=== PATIENT | female | born 1980 | race Caucasian/White ===

== ENCOUNTER 2016-11-28 10:44 | Emergency (ER) | payer MEDICARE, OTHER ==
[2016-11-28] MEDS ORDERED: HYDROcodone/ACETAMINOPHEN 1 EACH TABLET PO ONE (12:45)
--- NOTE | 2016-11-28 12:46 | ERNOTE ---
Lower Extremity HPI - Narrative Date of Service: 11/28/16 - General Lower Extremities Pain: knee: right Time Seen by Provider: 11/28/16 12:36 Source: patient, RN notes reviewed, old records, other - [facility] database Exam Limitations: clinical condition - Immun/Allergies/Home Medications Immunizations: IMMUNIZATION HX Immunizations Up to Date Yes History of Influenza Vaccine Yes Hx Pneumococcal Vaccination No Allergies/Adverse Reactions: Allergies Allergy/AdvReac Type Severity Reaction Status Date / Time ketorolac tromethamine Allergy Severe Hives Verified 11/01/16 15:27 [From Toradol] ondansetron HCl [From Zofran] Allergy Severe Hives Verified 11/01/16 15:27 ibuprofen AdvReac Mild Nausea Verified 11/01/16 15:27 Home Medications: HOME MEDICATIONS Lurasidone HCl [Latuda] 80 mg PO DAILY 02/17/15 [Last Taken Unknown] Zolpidem Tartrate [Ambien] 10 mg PO HS 02/17/15 [Last Taken Unknown] Dexlansoprazole [Dexilant] 60 mg PO DAILY 09/04/15 [Last Taken Unknown] Ketoconazole [Nizoral Cream] 1 appl TP BID #30 gm 05/01/16 [Last Taken Unknown] Lamotrigine [Lamictal] 200 mg PO HS 07/27/16 [Last Taken Unknown] Lisdexamfetamine Dimesylate [Vyvanse] 50 mg PO DAILY 07/27/16 [Last Taken Unknown] busPIRone HCL [Buspar] 30 mg PO DAILY 07/27/16 [Last Taken Unknown] clonazePAM [Klonopin] 1 mg PO BID 09/05/16 [Last Taken Unknown] Promethazine HCl 12.5 mg PO QID PRN #14 tablet 10/27/16 [Last Taken Unknown] oxyCODONE HCL/ACETAMINOPHEN [Percocet 5 MG/325 MG] 2 tab PO QID PRN #30 tab 10/02 [Last Taken Unknown] - History of Present Illness Narrative: Carissa is a 36 year old female who presents to the ED for right knee pain. She reports that her knee has been "locking up" for the past 2 days. She reports being unable to fully extend or flex the knee. She denies any injury. She has had similar problems with this in the past and had a knee surgery approximately a year ago. She has not contacted her orhto, Dr. Lucio, about her symptoms. She has been taking Tylenol without relief. She was here with right knee pain last May and June. She reports following up with Dr. Lucio at that time. She states she had a cortisone injection and did physical therapy with good results. She lives in [place] and her PCP is in [place] at [facility]. Her [facility] record is 12 pages long. According to the report she is also in the ED at [facility] frequently. She was prescribed Bloomingdale by a provider there and filled the rx 1 week ago. Method of Injury: Reports: no apparent injury Prior Treament: Reports: recently seen, treated by physician, similar symptoms before Review of Systems - Review of Systems Constitutional: Absent: fever, chills EYE: Present: no symptoms reported ENT: Present: no symptoms reported Respiratory: Present: no symptoms reported Cardiology: Present: no symptoms reported Gastrointestinal/Abdominal: Present: no symptoms reported Genitourinary: Present: no symptoms reported Musculoskeletal: Present: joint pain, joint swelling Skin: Absent: lesions, lumps, change in color Neurological: Absent: weakness, numbness, tingling Endocrine: Present: no symptoms reported Hematologic/Lymphatic: Present: no symptoms reported Psych: Present: no symptoms reported - Patient's Past Medical History Patient History - Medical: Anxiety, Depression, Kidney stone, Obesity, Osteoarthritis Patient History - Cardiac/Respiratory: No pertinent hx Patient History - Cancer: Bladder, Other Patient History - Surgical Procedures: Appendectomy, Cholecystectomy, , Hysterectomy, Tubal Ligation, Other - Family History Mother Family History - Medical: No pertinent hx Family History - Cardiac/Respiratory: No pertinent hx Father Family History - Medical: No pertinent hx Family History - Cardiac/Respiratory: No pertinent hx - Social History Living Situations: spouse Smoking Status: Current every day smoker Have you smoked in the past 12 months: Yes Do you dip or chew tobacco: No Alcohol Use: none Drug Use: none Physical Exam - Physical Exam General Appearance: Present: alert, mild distress, obese Extremity Exam: Present: no edema, decreased range of motion, other - well healed incision to right anterior knee, severe pain with any palpation of knee, no effusion present, sitting in wheelchair with right leg extended, exam limited d/t complaints of severe pain. Absent: joint redness Neurological Exam: Present: alert, oriented, normal mood/affect, no motor/ sensory deficits Skin Exam: Present: normal color, warm/dry ED Progress - Vital Signs Patient's Vital Signs:: I have reviewed the patient's vital signs. Vital Signs: Vital Signs 11/28/16 11:02 Temperature 36.7 C Pulse Rate 106 H Respiratory 14 Rate Blood Pressure 157/89 O2 Sat by Pulse 100 Oximetry - X-Ray X-Ray #1 X-Ray: knee - right Interpretation: Reviewed by me X-ray Comments: Technique: Knee 3 Views RT * Findings: Normal bony mineralization and alignment. No fracture or dislocation. Reidentified osteoarthritis. No lytic or blastic changes. No soft tissue abnormality. IMPRESSION: NO ACUTE OSSEOUS ABNORMALITY Electronically signed by Alonso Marcos M.D.. - Progress/Reassessment Chief Complaint: Lower Extremity Pain/ Injury Progress:: Unchanged Progress Note-Subjective: 2 Bloomingdale given for pain, patient reported nausea after her xray, Phenergan IM ordered - requested more pain medication with this. Xray report reviewed with patient. Informed that based on lack of acute findings, prescribing narcotic pain medications is not appropriate. Report from [facility] database also reviewed with patient. Discussed that she needs to obtain her pain medications from her PCP as she has obtained numerous prescriptions from different providers that she has even filled at several different pharmacies over the past year. Instructed to contact her PCP or her orthopedic surgeon regarding further pain management. Patient then requested to speak to me again when the nurse went in the room to discharge her. I instructed the nurse to discharge the patient, as I had no further instructions for her and was not going to discuss prescribing pain medication any further. The patient then told the nurse that I was a "fucking coward" because I would not speak to her again. As the patient was leaving - without the use of a wheelchair - she informed the nurse that if she saw me " out on the street" that she would "fuck up my world." reimbursement manager contacted by nurse occupational health manager. She recommended contacting law enforcement as the patient had threatened to harm me. [employer] contacted. 2 officers then came to the department and a report was made. Departure Clinical Impression: Drug-seeking behavior Knee pain, right Qualifiers: Chronicity: unspecified Qualified Code(s): M25.561 - Pain in right knee - Departure Disposition: Home Follow Up Needed Condition: Good Instructions: Knee Pain, [id number] Additional Instructions: Contact Dr. Lucio regarding your ongoing knee problems Referrals: Wilmer Lucio MD [Staff Physician] -
[2016-11-28] MEDS ORDERED: HYDROcodone/ACETAMINOPHEN 1 EACH TABLET ONE (12:52)
[2016-11-28] MEDS ORDERED: PROMETHAZINE HCL 50 MG/ML AMPUL IM ONE ×2 (13:26→13:29)
[2016-11-28 17:06] VITALS: BP 157/89
== END 2016-11-28 14:35 | disposition home or self-care (01) ==
LOC: ER 10:44
DX: M25.561 Pain in right knee (principal); Z76.5 Malingerer [conscious simulation]; F17.210 Nicotine dependence, cigarettes, uncomplicated; Z90.710 Acquired absence of both cervix and uterus; Z90.49 Acquired absence of other specified parts of digestive tract; Z85.51 Personal history of malignant neoplasm of bladder

== ENCOUNTER 2017-01-18 14:34 | Emergency (ER) | payer MEDICARE, OTHER ==
[2017-01-18] MEDS ORDERED: FAMOTIDINE 10 MG/ML VIAL IV ONE ×2 (15:02→15:50)
[2017-01-18] MEDS ORDERED: PROMETHAZINE HCL 12.5 MG in DEXTROSE 5 % IN WATER 50 ML IV ONE ×2 (15:02)
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
--- OUTSIDE RECORDS SUMMARY | 2017-01-18 15:05 | XMS REPORT | Summary of Care ---
:1980 Author Organization [facility] Address [address] [place] [id number]- Care Team Providers Name Role Phone Jessy Taylor Primary Care Physician Encounter Date(s): 12/13/16 - 12/13/[address] [id number]- [facility] Discharge Diagnosis: Recurrent abdominal pain Discharge Disposition: Discharged to Home or Self Care Attending Physician: CAS Rucker Admitting Physician: CAS Rucker Vital Signs Most recent to oldest 1 2 3 [Reference Range]: Temperature Temporal Artery 36.9 DegC 37.0 DegC [36.0-38.0 DegC] (12/13/16 9:34 PM) (12/13/16 5:29 PM) Heart Rate Monitored [60-100 103 bpm 110 bpm bpm] *HI* *HI* (12/13/16 9:34 PM) (12/13/16 5:29 PM) Respiratory Rate [12-20 br/min] 20 br/min 18 br/min 18 br/min (12/13/16 9:34 PM) (12/13/16 8:26 PM) (12/13/16 6:48 PM) SpO2 94 % 98 % (12/13/16 9:34 PM) (12/13/16 5:29 PM) Blood Pressure [90-130/60-90 154/89mmHg 150/94mmHg mmHg] *HI* *HI* (12/13/16 9:34 PM) (12/13/16 5:29 PM) Weight Dosing 139.20 kg1 (12/13/16 5:33 PM) Weight Measured 139.2 kg (12/13/16 5:29 PM) 1Result Comment: This result was because the dosing weight was either not entered or it is>30 days old. This result is based off: Weight Measured December 13, 2016 17:29:00 PRESS OPERATOR HELPER by Cheli Varghese RN Problem List Condition Effective Dates Status Health Status Informant ADHD - Attention deficit disorder Active with hyperactivity(Confirmed) Anal fissure(Confirmed) 05/30/15 Active Anxiety(Confirmed) Active Appendectomy(Confirmed) Active patient Back pain(Confirmed) Active Bipolar disorder NOS(Confirmed) Active delivery(Confirmed)1 Active Cholecystectomy(Confirmed) Active patient Depression(Confirmed) Active GERD - Gastro-esophageal reflux Active disease(Confirmed) H/O: 1 miscarriage(Confirmed) Active H/O: head injury(Confirmed) Active History of - attempted Active suicide(Confirmed) IC (interstitial Active cystitis)(Confirmed) Chronic insomnia(Confirmed) Active Morbid obesity(Confirmed) Active Muscle shortened- piriformis on Active left(Confirmed) OCD - Obsessive-compulsive Active disorder(Confirmed) Acute paronychia of Active finger(Confirmed) Post-operative pain(Confirmed) 05/05/15 Active Cyst, ovarian(Confirmed) Active Pelvic inflammatory Active disease(Confirmed) PERSONALITY DISORDERS(Confirmed) Active (Confirmed) 04/18/98 - 01/23/99 Resolved (Confirmed) 05/30/04 - 01/16/05 Resolved (Confirmed) 02/15/03 - 11/22/03 Resolved Seizure disorder(Confirmed) Active Tubal ligation(Confirmed) Active patient Urinary frequency(Confirmed) Active Weakness of back(Confirmed) Active 1x3 Allergies, Adverse Reactions, Alerts Substance Reaction Severity Status ibuprofen GASTRIC ULCER, UNSPECIFIED ACUTE OR CHRONIC, WITHOUT Active MENTION OF HEMORRHAGE OR PERFORATION Alex Montgomery Active Medications Adderall 10 mg oral tablet 1 tab(s), Oral, BID, take 1 every morning and 1 every noon take on empty stomach, # 60 tab(s), 0 Refill(s), Start Date: 01/03/15 15:28:02 PRESS OPERATOR HELPER, Pharmacy: [facility] [id number] Start Date: 01/03/15 Stop Date: 01/10/15 Status: DiscontinuedAdderall 20 mg oral tablet 1 tab(s), Oral, BID, take 1 tab in the morning and 1 tab at noon., # 60 tab(s), 0 Refill(s), Start Date: 03/10/15 9:18:00 CDT, Pharmacy: [facility] [id number] Start Date: 03/10/15 Stop Date: 04/07/15 Status: DiscontinuedAdderall 20 mg oral tablet 1 tab(s), Oral, BID, take 1 tab in the morning and 1 tab at noon., # 60 tab(s), 0 Refill(s), Start Date: 04/07/15 9:32:24 CDT, Pharmacy: [facility] Start Date: 04/07/15 Stop Date: 05/08/15 Status: CompletedAdderall 20 mg oral tablet 1 tab(s), Oral, BID, take 1 tab in the morning and 1 tab at noon., # 60 tab(s), 0 Refill(s), Start Date: 06/06/15 9:28:56 CDT, Pharmacy: [facility] [id number] Start Date: 06/06/15 Stop Date: 08/14/15 Status: CompletedAdderall 20 mg oral tablet 1 tab(s), Oral, BID, take 1 tab in the morning and 1 tab at noon., # 60 tab(s), 0 Refill(s), Start Date: 05/08/15 11:52:49 CDT, Pharmacy: [facility] Start Date: 05/08/15 Stop Date: 06/06/15 Status: CompletedAdderall 20 mg oral tablet 1 tab(s), Oral, BID, take 1 tab qam and 1 tab at noon., # 60 tab(s), 0 Refill(s) , Start Date: 01/10/15 10:07:00 PRESS OPERATOR HELPER, Pharmacy: [facility] [id number] Start Date: 01/10/15 Stop Date: 02/06/15 Status: Discontinuedalbuterol CFC free 90 mcg/inh inhalation aerosol 2 puff(s), Inhale, QID, PRN for wheezing, X 7 days, # 1 EA, 0 Refill(s), Start Date: 12/16/15 10:00:00 PRESS OPERATOR HELPER, Pharmacy: [facility] Start Date: 12/16/15 Stop Date: 12/23/15 Status: CompletedAmbien 5 mg oral tablet 1 tab(s), Oral, HS, PRN for sleep, # 30 tab(s), 1 Refill(s), called to pharmacy (Rx) Start Date: 08/16/14 Stop Date: 09/14/14 Status: DiscontinuedAmbien 5 mg oral tablet 1 tab(s), Oral, HS, PRN for sleep, # 30 tab(s), 1 Refill(s), Start Date: 11:37:30 PRESS OPERATOR HELPER, Pharmacy: [facility] [id number] Start Date: 10/18/14 Stop Date: 11/21/14 Status: DiscontinuedAmbien 5 mg oral tablet 1 tab(s), Oral, HS, PRN for sleep, # 30 tab(s), 3 Refill(s), Start Date: 12:01:43 PRESS OPERATOR HELPER, Pharmacy: [facility] [id number] Start Date: 11/21/14 Stop Date: 12/16/14 Status: DiscontinuedAmbien 5 mg oral tablet 1 tab(s), Oral, HS, PRN for sleep, # 30 tab(s), 1 Refill(s), Start Date: 11:53:37 CDT, called to pharmacy (Rx) Start Date: 09/14/14 Stop Date: 10/18/14 Status: Discontinuedamitriptyline 25 mg oral tablet 1 tab(s), Oral, HS, 0 Refill(s), Start Date: 02/06/15 16:00:00 CDT Start Date: 02/06/15 Stop Date: 05/12/15 Status: Completedamitriptyline 25 mg oral tablet 1 tab(s), Oral, HS, # 30 tab(s), 11 Refill(s), Start Date: 11/03/14 10:16:00 PRESS OPERATOR HELPER , Pharmacy: [facility] [id number] Start Date: 11/03/14 Stop Date: 11/21/14 Status: Completedamitriptyline 50 mg oral tablet 1 tab(s), Oral, HS, # 30 tab(s), 0 Refill(s), Start Date: 11/21/14 11:30:00 PRESS OPERATOR HELPER Start Date: 11/21/14 Stop Date: 02/06/15 Status: Completedamoxicillin 500 mg oral capsule 1 cap(s), Oral, TID, X 10 days, # 30 cap(s), 0 Refill(s), [facility] [place] Start Date: 05/07/14 Stop Date: 05/17/14 Status: CompletedAtivan 1 mg oral tablet 1 tab(s), Oral, BID, # 10 tab(s), 0 Refill(s) Start Date: 08/01/14 Stop Date: 08/16/14 Status: CompletedAtivan 1 mg oral tablet 0.5 - 1 tab, Oral, BID, PRN for anxiety, # 55 tab(s), 0 Refill(s), called to pharmacy (Rx) Start Date: 08/16/14 Stop Date: 09/14/14 Status: DiscontinuedAtivan 1 mg oral tablet 0.5 - 1 tab, Oral, BID, PRN for anxiety, # 45 tab(s), 0 Refill(s), Start Date: 10/18/14 11:37:13 PRESS OPERATOR HELPER, Pharmacy: [facility] [id number] Start Date: 10/18/14 Stop Date: 11/21/14 Status: DiscontinuedAtivan 1 mg oral tablet 0.5 - 1 tab, Oral, BID, PRN for anxiety, # 60 tab(s), 3 Refill(s), Start Date: 11/21/14 12:01:39 PRESS OPERATOR HELPER, Pharmacy: [facility] [id number] Start Date: 11/21/14 Stop Date: 12/16/14 Status: CompletedAtivan 1 mg oral tablet 1 tab(s), Oral, TID, PRN for anxiety, X 2 days, # 6 tab(s), 0 Refill(s) Start Date: 05/18/14 Stop Date: 05/20/14 Status: CompletedAtivan 1 mg oral tablet 0.5 - 1 tab, Oral, BID, PRN for anxiety, # 50 tab(s), 0 Refill(s), Start Date: 09/14/14 11:53:26 CDT, called to pharmacy (Rx) Start Date: 09/14/14 Stop Date: 10/18/14 Status: DiscontinuedAtivan 1 mg oral tablet 0.5 - 1 tab, Oral, BID, PRN for anxiety, # 55 tab(s), 0 Refill(s), called to pharmacy (Rx) Start Date: 07/27/14 Stop Date: 08/16/14 Status: DiscontinuedAtivan 1 mg oral tablet 1 tab(s), Oral, TID, PRN for anxiety Start Date: 07/21/14 Stop Date: 07/27/14 Status: Discontinuedazithromycin 250 mg oral tablet 2 tab(s), Oral, ONETIME, 0 Refill(s) Start Date: 06/13/14 Stop Date: 06/20/14 Status: Discontinuedazithromycin 250 mg oral tablet 1 tab(s), Oral, Daily, from tomorrow for 4 days, 0 Refill(s) Start Date: 06/13/14 Stop Date: 06/20/14 Status: DiscontinuedBactrim DS 800 mg-160 mg oral tablet 1 tab(s), Oral, BID, X 5 days, # 10 tab(s), 0 Refill(s) Start Date: 06/22/14 Stop Date: 06/27/14 Status: CompletedBactrim DS 800 mg-160 mg oral tablet 1 tab(s), Oral, BID, X 10 days, # 20 tab(s), 0 Refill(s), Start Date: 06/01/16 10:13:00 CDT Start Date: 06/01/16 Stop Date: 06/11/16 Status: CompletedBentyl 10 mg oral capsule 1 cap(s), Oral, QID, PRN abdominal pain, # 15 cap(s), 0 Refill(s), Start Date: 10/15/15 17:02:00 PRESS OPERATOR HELPER Start Date: 10/15/15 Stop Date: 01/21/16 Status: CompletedbusPIRone 15 mg oral tablet 1 tab(s), Oral, BID, Start Date: 06/06/16 15:48:00 CDT Start Date: 06/06/16 Stop Date: 09/15/16 Status: CompletedbusPIRone 30 mg oral tablet 1 tab(s), Oral, BID, # 180 tab(s), 0 Refill(s), Start Date: 09/15/16 12:58:00 CDT Start Date: 09/15/16 Status: Orderedcefdinir 300 mg oral capsule 1 cap(s), Oral, q12hr, # 20 cap(s), 0 Refill(s), Start Date: 10/05/16 15:21:00 PRESS OPERATOR HELPER, [facility] [place] Start Date: 10/05/16 Stop Date: 10/23/16 Status: Completedcephalexin 500 mg oral tablet 1 tab(s), Oral, QID, # 28 tab(s), 0 Refill(s) Start Date: 05/13/14 Stop Date: 06/13/14 Status: DiscontinuedCheratussin AC 10 mg-100 mg/5 mL oral syrup 5 mL, Oral, q4hr, PRN for cough, # 120 mL, 0 Refill(s), Start Date: 12/26/14 18: 43:00 PRESS OPERATOR HELPER Start Date: 12/26/14 Stop Date: 01/09/15 Status: Completedcimetidine 300 mg oral tablet 1 tab(s), Oral, TID, # 15 tab(s), 0 Refill(s) Start Date: 06/02/14 Stop Date: 06/20/14 Status: DiscontinuedCipro 500 mg oral tablet 1 tab(s), Oral, q12hr, # 2 tab(s), 0 Refill(s), Start Date: 10/26/14 13:16:00 PRESS OPERATOR HELPER Start Date: 10/26/14 Stop Date: 11/03/14 Status: CompletedCipro 500 mg oral tablet 1 tab(s), Oral, q12hr, # 20 tab(s), 0 Refill(s) Start Date: 09/01/14 Stop Date: 09/27/14 Status: Discontinuedcitalopram 10 mg oral tablet 1 tab(s), Oral, Daily, # 30 tab(s), 1 Refill(s), Pharmacy: [facility] [id number] Start Date: 05/25/14 Stop Date: 06/13/14 Status: Discontinuedcitalopram 10 mg oral tablet 1 tab(s), Oral, Daily, # 30 tab(s), 0 Refill(s) Start Date: 06/13/14 Stop Date: 06/20/14 Status: DiscontinuedClaritin 10 mg oral tablet 1 tab(s), Oral, Daily, Start Date: 10/23/16 8:23:00 PRESS OPERATOR HELPER Start Date: 10/23/16 Stop Date: 11/01/16 Status: CompletedcloNIDine 0.1 mg oral tablet 0.5 tab, Oral, BID, discontinue and call clinic in case of fatigue or dizziness , # 30 tab(s), 0 Refill(s), Start Date: 10/18/14 11:38:00 PRESS OPERATOR HELPER, Pharmacy: [facility] [id number] Start Date: 10/18/14 Stop Date: 11/21/14 Status: CompletedDexilant 60 mg oral delayed release capsule 1 cap(s), Oral, Daily, # 30 cap(s), 0 Refill(s), Start Date: 05/01/15 6:17:00 CDT Start Date: 05/01/15 Status: Ordereddextroamphetamine 5 mg oral tablet 1 tab(s), Oral, BID, take 1 tab in the morning and 1 tab at noon., # 60 tab(s), 0 Refill(s), Start Date: 02/14/15 10:50:00 CDT, Pharmacy: [facility] [id number] Start Date: 02/14/15 Stop Date: 03/10/15 Status: Discontinueddextroamphetamine-amphetamine 20 mg oral tablet 1 tab(s), Oral, BID, # 60 tab(s), 0 Refill(s), Start Date: 02/09/15 9:33:42 CDT , Pharmacy: [facility] [id number] Start Date: 02/09/15 Stop Date: 02/14/15 Status: CompletedDiflucan 150 mg oral tablet 1 tab(s), Oral, Every other day, # 5 tab(s), 0 Refill(s), Start Date: 03/14/16 17:57:30 CDT, Pharmacy: [facility] [id number] Start Date: 03/14/16 Stop Date: 03/26/16 Status: CompletedDiflucan 150 mg oral tablet 1 tab(s), Oral, Every other day, # 5 tab(s), 0 Refill(s), Start Date: 03/13/16 18:45:00 CDT, Pharmacy: [facility] Start Date: 03/13/16 Stop Date: 03/14/16 Status: DiscontinuedDiflucan 150 mg oral tablet 1 tab(s), Oral, ONETIME, # 1 tab(s), 0 Refill(s), Start Date: 12/16/15 9:59:00 PRESS OPERATOR HELPER, Pharmacy: [facility] Start Date: 12/16/15 Stop Date: 01/21/16 Status: CompletedDiflucan 150 mg oral tablet 1 tab(s), Oral, ONETIME, # 1 tab(s), 0 Refill(s) Start Date: 09/01/14 Stop Date: 09/01/14 Status: CompletedDiflucan 150 mg oral tablet 1 tab(s), Oral, ONETIME, # 1 tab(s), 0 Refill(s), Start Date: 05/08/15 8:57:00 CDT Start Date: 05/08/15 Stop Date: 05/12/15 Status: CompletedDiflucan 150 mg oral tablet 1 tab(s), Oral, ONETIME, # 1 tab(s), 0 Refill(s), Start Date: 05/04/15 10:05:00 CDT, Pharmacy: [facility] [id number] Start Date: 05/04/15 Stop Date: 05/09/15 Status: CompletedDilaudid 2 mg oral tablet 1 tab(s), Oral, q8hr interval, PRN for pain, # 3 tab(s), 0 Refill(s), Start Date : 03/04/15 23:12:00 CDT Start Date: 03/04/15 Stop Date: 03/10/15 Status: CompletedDilaudid 4 mg oral tablet 1 tab(s), Oral, q4hr, PRN for pain, # 8 tab(s), 0 Refill(s), Start Date: 19:40:00 CDT Start Date: 02/02/16 Stop Date: 03/26/16 Status: Completeddoxycycline monohydrate 100 mg oral capsule 1 cap(s), Oral, BID, # 28 cap(s), 0 Refill(s) Start Date: 05/22/14 Stop Date: 06/13/14 Status: Discontinueddoxycycline monohydrate 100 mg oral tablet 1 tab(s), Oral, Daily, # 14 tab(s), 0 Refill(s) Start Date: 07/10/14 Stop Date: 07/27/14 Status: Completedferrous sulfate 325 mg, Oral, Daily, 0 Refill(s), Start Date: 08/13/16 17:39:00 CDT Start Date: 08/13/16 Stop Date: 10/04/16 Status: CompletedFlagyl 500 mg oral tablet 1 tab(s), Oral, every 8 hours, # 42 tab(s), 0 Refill(s) Start Date: 07/10/14 Stop Date: 07/27/14 Status: CompletedFlagyl 500 mg oral tablet 1 tab(s), Oral, q8hr interval, # 30 tab(s), 0 Refill(s) Start Date: 05/22/14 Stop Date: 06/13/14 Status: DiscontinuedflavoxATE 100 mg oral tablet 2 tab(s), Oral, TID, # 42 tab(s), 0 Refill(s), Start Date: 10/29/14 18:14:00 PRESS OPERATOR HELPER Start Date: 10/29/14 Stop Date: 11/21/14 Status: CompletedFlexeril 10 mg oral tablet 1 tab(s), Oral, TID, # 15 tab(s), 0 Refill(s), Start Date: 03/19/15 13:18:00 CDT Start Date: 03/19/15 Stop Date: 04/07/15 Status: DiscontinuedFlomax 0.4 mg oral capsule 1 cap(s), Oral, Daily, # 30 cap(s), 0 Refill(s), Start Date: 02/27/15 23:11:00 CDT Start Date: 02/27/15 Stop Date: 04/27/15 Status: CompletedFlonase 50 mcg/inh nasal spray 1 spray(s), Nasal, BID, in each nostril, # 16 gm, 0 Refill(s), Start Date: 12/26 18:44:00 PRESS OPERATOR HELPER, Pharmacy: [facility] [id number] Start Date: 12/26/14 Stop Date: 02/06/15 Status: Completedfluconazole 150 mg oral tablet tab(s), Oral, Daily, 0 Refill(s) Start Date: 06/13/14 Stop Date: 06/13/14 Status: Discontinuedfluticasone 50 mcg/inh nasal spray 2 spray(s), Nasal, Daily, X 14 days, # 1 EA, 0 Refill(s), Start Date: 12/16/15 9 :59:00 PRESS OPERATOR HELPER, Pharmacy: [facility] Start Date: 12/16/15 Stop Date: 12/30/15 Status: Completedgabapentin See Instructions, 100 mg Oral take 2 in am and 2 at noon and 1 at hs, 0 Refill (s) Start Date: 03/15/14 Stop Date: 06/20/14 Status: Discontinuedgabapentin 100 mg oral capsule 2 cap(s), Oral, HS, # 60 cap(s), 0 Refill(s), Pharmacy: [facility] [id number] Start Date: 06/20/14 Stop Date: 08/16/14 Status: Completedgabapentin 100 mg oral capsule 2 cap(s), Oral, HS, 0 Refill(s) Start Date: 06/20/14 Stop Date: 06/20/14 Status: Discontinuedgabapentin 300 mg oral capsule 1 cap(s), Oral, BID, 0 Refill(s) Start Date: 06/20/14 Stop Date: 06/20/14 Status: Discontinuedgabapentin 300 mg oral capsule 1 cap(s), Oral, BID, # 60 cap(s), 0 Refill(s), Pharmacy: [facility] [id number] Start Date: 06/20/14 Stop Date: 08/16/14 Status: CompletedHYDROcodone Oral, q12hr interval, 0 Refill(s), Start Date: 10/20/14 14:03:00 PRESS OPERATOR HELPER Start Date: 10/20/14 Stop Date: 11/21/14 Status: CompletedHYDROcodone-acetaminophen 5 mg-325 mg oral tablet 2 tab(s), Oral, q4hr, PRN for pain, 0 Refill(s), Start Date: 06/23/15 10:20:00 CDT Start Date: 06/23/15 Stop Date: 10/15/15 Status: CompletedHYDROcodone-acetaminophen 5 mg-325 mg oral tablet 1 tab(s), Oral, q6hr, PRN for pain, # 30 tab(s), 0 Refill(s), Start Date: 15:24:00 PRESS OPERATOR HELPER, other reason (Rx) Start Date: 12/07/14 Stop Date: 02/06/15 Status: CompletedHYDROcodone-acetaminophen 5 mg-325 mg oral tablet 2 tab(s), Oral, q6hr, X 3 days, # 15 tab(s), 0 Refill(s), Start Date: 07/29/15 23:32:00 CDT Start Date: 07/29/15 Stop Date: 08/01/15 Status: CompletedHYDROcodone-acetaminophen 5 mg-325 mg oral tablet 2 tab(s), Oral, q6hr, X 3 days, # 8 tab(s), 0 Refill(s), Start Date: 12/04/15 21 :39:00 PRESS OPERATOR HELPER Start Date: 12/04/15 Stop Date: 12/07/15 Status: CompletedHYDROcodone-acetaminophen 5 mg-325 mg oral tablet 1-2 tab(s), Oral, q6hr interval, # 12 tab(s), 0 Refill(s), Start Date: 02/28/15 19:43:00 CDT Start Date: 02/28/15 Stop Date: 03/03/15 Status: CompletedHYDROcodone-acetaminophen 5 mg-325 mg oral tablet 2 tab(s), Oral, q4hr, # 20 tab(s), 0 Refill(s) Start Date: 05/26/14 Stop Date: 05/30/14 Status: Completedhydrocodone-acetaminophen 5mg-325mg oral tablet 2 tab(s), Oral, q6hr, X 3 days, # 20 tab(s), 0 Refill(s), Start Date: 12/02/16 20:14:00 PRESS OPERATOR HELPER Start Date: 12/02/16 Stop Date: 12/05/16 Status: CompletedHYDROcodone-acetaminophen 5mg-325mg oral tablet 1 tab(s), Oral, q6hr interval, # 12 tab(s), 0 Refill(s), Start Date: 09/15/16 13 :20:00 CDT Start Date: 09/15/16 Stop Date: 09/17/16 Status: Completedhydrocodone-acetaminophen 5mg-325mg oral tablet 2 tab(s), Oral, q6hr, X 1 days, # 4 tab(s), 0 Refill(s), Start Date: 12/02/16 23 :27:00 PRESS OPERATOR HELPER Start Date: 12/02/16 Stop Date: 12/03/16 Status: Completedhydrocortisone 2.5% topical cream 1 stacy, Topical, TID, 0 Refill(s) Start Date: 06/20/14 Stop Date: 09/27/14 Status: DiscontinuedhydrOXYzine pamoate 25 mg oral capsule 1 cap(s), Oral, BID, PRN as needed for anxiety, Start Date: 06/20/16 12:21:00 CDT Start Date: 06/20/16 Stop Date: 07/30/16 Status: CompletedhydrOXYzine pamoate 50 mg oral capsule 1-2 caps, Oral, HS, PRN sleep, # 60 tab(s), 1 Refill(s), Pharmacy: [facility] [id number] Start Date: 06/29/14 Stop Date: 07/27/14 Status: DiscontinuedKeflex 500 mg oral capsule 1 cap(s), Oral, TID, # 9 cap(s), 0 Refill(s), Start Date: 05/01/15 9:36:00 CDT Start Date: 05/01/15 Stop Date: 05/12/15 Status: CompletedKeflex 500 mg oral capsule 1 cap(s), Oral, TID, # 9 cap(s), 0 Refill(s), Start Date: 05/08/15 8:56:00 CDT, Pharmacy: [facility] [id number] Start Date: 05/08/15 Stop Date: 05/09/15 Status: CompletedKlonoPIN 0.5 mg oral tablet 1 tab(s), Oral, BID, PRN anxiety, 0 Refill(s), Start Date: 09/15/16 12:58:00 CDT Start Date: 09/15/16 Status: OrderedlamoTRIgine 200 mg oral tablet 1 tab(s), Oral, HS, # 60 tab(s), 0 Refill(s), Start Date: 07/30/16 11:08:00 CDT Start Date: 07/30/16 Status: OrderedlamoTRIgine 25 mg oral tablet 1 tab(s), Oral, BID, Start Date: 06/20/16 12:21:00 CDT Start Date: 06/20/16 Stop Date: 07/30/16 Status: CompletedLatuda 120 mg oral tablet 1 tab(s), Oral, Daily, # 30 tab(s), 0 Refill(s), Start Date: 04/07/15 9:32:00 CDT, Pharmacy: [facility] [id number] Start Date: 04/07/15 Stop Date: 05/17/15 Status: CompletedLatuda 120 mg oral tablet 1 tab(s), Oral, Daily, # 30 tab(s), 1 Refill(s), Start Date: 05/17/15 8:34:10 CDT, Pharmacy: [facility] [id number] Start Date: 05/17/15 Stop Date: 11/01/16 Status: CompletedLatuda 20 mg oral tablet 3 tab(s), Oral, qPM, # 90 tab(s), 0 Refill(s), Pharmacy: [facility] [id number] Start Date: 06/20/14 Stop Date: 06/21/14 Status: DiscontinuedLatuda 20 mg oral tablet 3 tab(s), Oral, qPM, 0 Refill(s) Start Date: 06/20/14 Stop Date: 06/20/14 Status: DiscontinuedLatuda 60 mg oral tablet 1 tab(s), Oral, Daily, # 28 tab(s), 1 Refill(s), Pharmacy: [facility] [id number], [id number], 10/16/16 Start Date: 06/29/14 Stop Date: 07/19/14 Status: CompletedLatuda 60 mg oral tablet 1 tab(s), Oral, Daily, # 30 tab(s), 1 Refill(s), Pharmacy: [facility] [id number], 10/16/16 Start Date: 08/16/14 Stop Date: 09/14/14 Status: DiscontinuedLatuda 60 mg oral tablet 1 tab(s), Oral, Daily, # 28 tab(s), 0 Refill(s), Start Date: 10/18/14 11:37:45 PRESS OPERATOR HELPER, [id number], 12/17/17 Start Date: 10/18/14 Stop Date: 11/21/14 Status: DiscontinuedLatuda 60 mg oral tablet 1 tab(s), Oral, Daily, # 28 tab(s), 0 Refill(s), Pharmacy: [facility] [id number], 10/16/16 Start Date: 07/19/14 Stop Date: 07/27/14 Status: CompletedLatuda 60 mg oral tablet 1 tab(s), Oral, Daily, # 28 tab(s), 0 Refill(s), Start Date: 10/18/14 11:37:15 PRESS OPERATOR HELPER, samples given to patient (Rx), 10/16/16 Start Date: 10/18/14 Stop Date: 10/24/14 Status: CompletedLatuda 60 mg oral tablet 1 tab(s), Oral, Daily, # 30 tab(s), 1 Refill(s), Start Date: 09/14/14 11:53:31 CDT, Pharmacy: [facility] [id number], 10/16/16 Start Date: 09/14/14 Stop Date: 10/18/14 Status: CompletedLatuda 60 mg oral tablet 1 tab(s), Oral, Daily, # 28 tab(s), 0 Refill(s), samples given to patient (Rx), [id number], 10/16/16 Start Date: 06/21/14 Stop Date: 06/29/14 Status: CompletedLatuda 60 mg oral tablet 1 tab(s), Oral, Daily, # 30 tab(s), 1 Refill(s), Pharmacy: [facility] [id number], 10/16/16 Start Date: 07/27/14 Stop Date: 08/16/14 Status: DiscontinuedLatuda 80 mg oral tablet 1 tab(s), Oral, Daily, with food, # 30 tab(s), 1 Refill(s), Start Date: 8:42:36 CDT, Pharmacy: [facility] [id number] Start Date: 03/20/15 Stop Date: 04/07/15 Status: DiscontinuedLatuda 80 mg oral tablet 1 tab(s), Oral, Daily, with food, # 30 tab(s), 0 Refill(s), Start Date: 16:51:00 PRESS OPERATOR HELPER Start Date: 11/01/16 Status: OrderedLatuda 80 mg oral tablet 1 tab(s), Oral, Daily, with food, # 30 tab(s), 1 Refill(s), Start Date: 17:40:04 PRESS OPERATOR HELPER, Pharmacy: [facility] [id number] Start Date: 01/12/15 Stop Date: 03/20/15 Status: CompletedLatuda 80 mg oral tablet 1 tab(s), Oral, Daily, with food, # 30 tab(s), 1 Refill(s), Start Date: 12:02:00 PRESS OPERATOR HELPER, [id number] Start Date: 11/21/14 Stop Date: 01/12/15 Status: CompletedLevaquin 500 mg oral tablet 1 tab(s), Oral, Daily, X 10 days, # 10 tab(s), 0 Refill(s), Start Date: 9:59:00 PRESS OPERATOR HELPER, Pharmacy: [facility] Start Date: 12/16/15 Stop Date: 12/26/15 Status: CompletedLidoderm 5% topical film Topical, HS, 0 Refill(s) Start Date: 06/13/14 Stop Date: 06/20/14 Status: Discontinuedlisdexamfetamine 30 mg oral capsule 1 cap(s), Oral, qAM, # 30 cap(s), 0 Refill(s), Start Date: 12/16/14 10:24:00 PRESS OPERATOR HELPER , [facility] [id number] Start Date: 12/16/14 Stop Date: 12/30/14 Status: Discontinuedlisdexamfetamine 50 mg oral capsule 1 cap(s), Oral, qAM, # 30 cap(s), 0 Refill(s), Start Date: 12/30/14 11:56:00 PRESS OPERATOR HELPER , [facility] [id number] Start Date: 12/30/14 Stop Date: 01/10/15 Status: DiscontinuedLoestrin Fe 12/06 oral tablet 1 tab(s), Oral, Daily, # 28 tab(s), 11 Refill(s), Start Date: 08/16/15 12:58:00 CDT Start Date: 08/16/15 Stop Date: 10/25/15 Status: CompletedLORazepam 0.5 mg-1 mg, Oral, TID, 0 Refill(s) Start Date: 06/13/14 Stop Date: 06/13/14 Status: DiscontinuedLORazepam 1 mg oral tablet 1 tab(s), Oral, TID, PRN for anxiety, 0 Refill(s) Start Date: 05/25/14 Stop Date: 06/08/14 Status: CompletedLORazepam 1 mg oral tablet See Instructions, PRN for anxiety, take 0.5 - 1 tab TID as needed for anxiety, # 90 tab(s), 1 Refill(s), called to pharmacy (Rx) Start Date: 06/08/14 Stop Date: 06/13/14 Status: DiscontinuedLORazepam 1 mg oral tablet See Instructions, PRN for anxiety, take 0.5 - 1 tab TID as needed for anxiety, # 90 tab(s), 1 Refill(s), called to pharmacy (Rx) Start Date: 05/25/14 Stop Date: 06/08/14 Status: CompletedLovenox 40 mg, Subcutaneous, Daily, 0 Refill(s) Start Date: 06/13/14 Stop Date: 06/20/14 Status: DiscontinuedLovenox 60 mg/0.6 mL injectable solution 0.6 mL, Subcutaneous, Daily, Start Date: 01/21/16 15:05:00 [employer] OPERATOR HELPER Start Date: 01/21/16 Stop Date: 05/22/16 Status: CompletedLutera 100 mcg-20 mcg oral tablet 1 tab(s), Oral, Daily, 2 tabs for 3 days, then 1 tab daily. Use continuously by skipping the last 7 pills and starting the next pack., # 56 tab(s), 0 Refill(s) , Start Date: 08/11/15 18:56:00 CDT, Pharmacy: [facility] [id number] Start Date: 08/11/15 Stop Date: 10/15/15 Status: CompletedLuvox Oral, 0 Refill(s) Start Date: 03/15/14 Stop Date: 05/25/14 Status: Discontinuedmirtazapine 15 mg oral tablet 0.5 - 1 tab, Oral, HS, # 30 tab(s), 1 Refill(s), Pharmacy: [facility] [id number] Start Date: 07/27/14 Stop Date: 08/16/14 Status: Discontinuednicotine 2 mg oral transmucosal gum 1 EA, Chewed, q6hr, PRN smoking cessation, 0 Refill(s) Start Date: 06/13/14 Stop Date: 06/20/14 Status: Discontinuednicotine 21 mg/24 hr transdermal film, extended release TD, HS, 0 Refill(s) Start Date: 06/13/14 Stop Date: 06/20/14 Status: DiscontinuedNorco 5 mg-325 mg oral tablet 1 tab(s), Oral, q6hr, PRN for pain, X 5 days, # 20 tab(s), 0 Refill(s), Start Date: 05/27/16 14:39:00 CDT Start Date: 05/27/16 Stop Date: 06/01/16 Status: CompletedNorco 5 mg-325 mg oral tablet 1 tab(s), Oral, q6hr, PRN for pain, # 2 tab(s), 0 Refill(s), Start Date: 0:26:00 CDT Start Date: 08/04/15 Stop Date: 08/14/15 Status: CompletedNorco 5 mg-325 mg oral tablet 1 tab(s), Oral, q6hr interval, # 40 tab(s), 0 Refill(s), Start Date: 08/07/15 15 :50:00 CDT Start Date: 08/07/15 Stop Date: 10/15/15 Status: CompletedNorco 5 mg-325 mg oral tablet 1 tab(s), Oral, q6hr, PRN for pain, X 5 days, # 20 tab(s), 0 Refill(s), Start Date: 08/04/15 0:24:00 CDT Start Date: 08/04/15 Stop Date: 08/09/15 Status: CompletedNorco 5 mg-325 mg oral tablet 1 tab(s), Oral, q6hr interval, 1-2 tabs by mouth every 4 hours when necessary pain., # 30 tab(s), 0 Refill(s), Start Date: 08/14/15 11:12:00 CDT Start Date: 08/14/15 Stop Date: 10/15/15 Status: CompletedNorco 5 mg-325 mg oral tablet 1 tab(s), Oral, q4hr, PRN for pain, # 24 tab(s), 0 Refill(s), Start Date: 18:24:00 PRESS OPERATOR HELPER Start Date: 11/28/15 Stop Date: 12/03/15 Status: CompletedNorco 5 mg-325 mg oral tablet 1 tab(s), Oral, q4hr, PRN for pain, X 1 days, # 6 tab(s), 0 Refill(s), Start Date: 10/11/16 14:29:00 PRESS OPERATOR HELPER Start Date: 10/11/16 Stop Date: 10/12/16 Status: CompletedNorco 5 mg-325 mg oral tablet 1 tab(s), Oral, q6hr, PRN for pain, # 30 tab(s), 0 Refill(s), Start Date: 16:33:00 CDT, other reason (Rx) Start Date: 05/03/15 Stop Date: 05/12/15 Status: CompletedNorco 5 mg-325 mg oral tablet 1 tab(s), Oral, q4hr, PRN pain moderate 4-7, Do not work or drive with this medication, # 12 tab(s), 0 Refill(s), Start Date: 11/21/16 13:42:00 PRESS OPERATOR HELPER Start Date: 11/21/16 Stop Date: 11/28/16 Status: CompletedNorco 5 mg-325 mg oral tablet 1 tab(s), Oral, q4hr, PRN for pain, # 30 tab(s), 0 Refill(s), Start Date: 14:19:00 CDT Start Date: 07/26/15 Stop Date: 08/14/15 Status: CompletedNorco 5 mg-325 mg oral tablet 1 tab(s), Oral, q6hr interval, # 12 tab(s), 0 Refill(s), Start Date: 03/10/15 11 :50:00 CDT Start Date: 03/10/15 Stop Date: 04/07/15 Status: DiscontinuedNorco 5 mg-325 mg oral tablet 1 tab(s), Oral, q6hr, PRN for pain, X 5 days, # 20 tab(s), 0 Refill(s) Start Date: 09/01/14 Stop Date: 09/06/14 Status: CompletedNorco 5 mg-325 mg oral tablet 2 tab(s), Oral, q6hr, PRN for pain, X 3 days, # 24 tab(s), 0 Refill(s), Start Date: 05/08/15 8:56:00 CDT Start Date: 05/08/15 Stop Date: 05/11/15 Status: Completedorphenadrine 100 mg oral tablet, extended release 1 tab(s), Oral, BID, # 6 tab(s), 0 Refill(s), Start Date: 09/08/14 16:28:00 CDT Start Date: 09/08/14 Stop Date: 09/14/14 Status: Completedorphenadrine 100 mg oral tablet, extended release 1 tab(s), Oral, BID, # 14 tab(s), 0 Refill(s), Start Date: 08/11/15 19:14:00 CDT Start Date: 08/11/15 Stop Date: 10/15/15 Status: Completedorphenadrine 100 mg oral tablet, extended release 1 tab(s), Oral, BID, # 10 tab(s), 0 Refill(s) Start Date: 04/21/14 Stop Date: 05/25/14 Status: Discontinuedoxybutynin 10 mg/24 hr oral tablet, extended release 1 tab(s), Oral, Daily, # 30 tab(s), 11 Refill(s), Start Date: 01/23/15 13:06:00 CDT, Pharmacy: [facility] [place] [id number] Start Date: 01/23/15 Stop Date: 03/10/15 Status: CompletedoxyCODONE-acetaminophen 5 mg-325 mg oral tablet 1 tab(s), Oral, q4hr, PRN for pain, Dispense, # 2 tab(s), 0 Refill(s), Start Date: 01/20/16 2:59:00 PRESS OPERATOR HELPER Start Date: 01/20/16 Stop Date: 01/21/16 Status: CompletedoxyCODONE-acetaminophen 5 mg-325 mg oral tablet 1 tab(s), Oral, q4hr, PRN for pain, # 10 tab(s), 0 Refill(s), Start Date: 2:58:00 PRESS OPERATOR HELPER Start Date: 01/20/16 Stop Date: 01/22/16 Status: CompletedoxyCODONE-acetaminophen 5 mg-325 mg oral tablet 1 tab(s), Oral, q4hr, PRN for pain, # 20 tab(s), 0 Refill(s) Start Date: 05/26/14 Stop Date: 05/29/14 Status: CompletedPercocet 5/325 1 tab(s), Oral, BID, PRN pain moderate 4-7, 0 Refill(s) Start Date: 06/13/14 Stop Date: 06/20/14 Status: DiscontinuedPercocet 5/325 oral tablet 1-2 tabs, Oral, q6hr interval, # 60 tab(s), 0 Refill(s), Start Date: 06/27/15 7: 54:00 CDT Start Date: 06/27/15 Stop Date: 06/27/15 Status: CompletedPercocet 5/325 oral tablet 1 tab(s), Oral, q6hr interval, PRN for pain, X 2 days, # 8 tab(s), 0 Refill(s), Start Date: 03/26/16 18:25:00 CDT Start Date: 03/26/16 Stop Date: 03/28/16 Status: CompletedPercocet 5/325 oral tablet 2 tab(s), Oral, q6hr, X 3 days, # 12 tab(s), 0 Refill(s), Start Date: 12/08/16 21:25:00 PRESS OPERATOR HELPER Start Date: 12/08/16 Stop Date: 12/11/16 Status: CompletedPercocet 5/325 oral tablet 1 tab(s), Oral, q6hr, PRN for pain, X 3 days, # 12 tab(s), 0 Refill(s), Start Date: 12/12/14 15:48:00 PRESS OPERATOR HELPER Start Date: 12/12/14 Stop Date: 12/15/14 Status: CompletedPercocet 5/325 oral tablet 1 tab(s), Oral, q6hr interval, # 30 tab(s), 0 Refill(s), Start Date: 08/16/15 12 :57:00 CDT Start Date: 08/16/15 Stop Date: 10/15/15 Status: CompletedPercocet 5/325 oral tablet 2 tab(s), Oral, q6hr, PRN for pain, X 7 days, # 40 tab(s), 0 Refill(s), Start Date: 05/01/15 9:36:00 CDT Start Date: 05/01/15 Stop Date: 05/08/15 Status: CompletedPercocet 5/325 oral tablet 1 tab(s), Oral, q4hr, PRN for pain, # 24 tab(s), 0 Refill(s), Start Date: 14:54:00 CDT Start Date: 07/01/15 Stop Date: 07/08/15 Status: CompletedPercocet 5/325 oral tablet 1 or 2 tabs, Oral, q4hr, PRN pain moderate 4-7, Do not work or drive with this medication, # 10 tab(s), 0 Refill(s), Start Date: 12/13/16 21:12:00 PRESS OPERATOR HELPER Start Date: 12/13/16 Stop Date: 12/16/16 Status: OrderedPercocet 5/325 oral tablet 2 tab(s), Oral, q6hr, PRN for pain, X 2 days, # 16 tab(s), 0 Refill(s), Start Date: 05/09/15 10:19:00 CDT Start Date: 05/09/15 Stop Date: 05/11/15 Status: CompletedPercocet 5/325 oral tablet 1 tab(s), Oral, q6hr, PRN for pain, # 12 tab(s), 0 Refill(s), Start Date: 2:42:00 CDT Start Date: 05/14/15 Stop Date: 05/16/15 Status: CompletedPercocet 7.5/325 oral tablet 1 tab(s), Oral, q4hr, PRN for pain, X 4 days, # 24 tab(s), 0 Refill(s) Start Date: 05/22/14 Stop Date: 05/25/14 Status: DiscontinuedPhenergan 25 mg oral tablet 1 tab(s), Oral, q8hr, # 15 tab(s), 0 Refill(s), Start Date: 09/30/15 12:10:00 PRESS OPERATOR HELPER Start Date: 09/30/15 Stop Date: 10/25/15 Status: CompletedPhenergan 25 mg oral tablet 1 tab(s), Oral, q4hr, PRN for nausea/vomiting, # 2 tab(s), 0 Refill(s), Start Date: 08/04/15 0:26:00 CDT Start Date: 08/04/15 Stop Date: 10/15/15 Status: CompletedPhenergan 25 mg oral tablet 1 tab(s), Oral, q4hr, PRN for nausea/vomiting, # 30 tab(s), 0 Refill(s), Start Date: 08/04/15 0:25:00 CDT Start Date: 08/04/15 Stop Date: 03/26/16 Status: CompletedPhenergan 25 mg oral tablet 1 tab(s), Oral, TID, PRN for nausea/vomiting, # 12 tab(s), 0 Refill(s), Start Date: 05/14/15 2:42:00 CDT Start Date: 05/14/15 Stop Date: 06/27/15 Status: CompletedPhenergan 25 mg oral tablet 1 tab(s), Oral, TID, PRN for nausea/vomiting, # 4 tab(s), 0 Refill(s), Start Date: 05/14/15 2:42:00 CDT Start Date: 05/14/15 Stop Date: 06/27/15 Status: CompletedPhenergan 25 mg rectal suppository 1 supp, [place], q6hr interval, # 12 supp, 0 Refill(s), Start Date: 01/28/16 4:33:00 CDT Start Date: 01/28/16 Stop Date: 05/22/16 Status: CompletedPhenergan 50 mg rectal suppository 1 supp, [place], q6hr interval, # 12 supp, 0 Refill(s), Start Date: 11/01/16 20:08: 00 PRESS OPERATOR HELPER Start Date: 11/01/16 Stop Date: 11/21/16 Status: Completedphentermine 15 mg oral capsule cap(s), Oral, Daily Start Date: 08/30/14 Stop Date: 09/27/14 Status: DiscontinuedpredniSONE 50 mg oral tablet 1 tab(s), Oral, Daily, # 5 tab(s), 0 Refill(s) Start Date: 06/02/14 Stop Date: 06/13/14 Status: DiscontinuedPriLOSEC 20 mg oral delayed release capsule 1 cap(s), Oral, Daily, 0 Refill(s) Start Date: 06/20/14 Stop Date: 06/29/14 Status: Completedpromethazine 25 mg oral tablet 1 tab(s), Oral, q6hr interval, PRN nausea, X 3 days, # 4 tab(s), 0 Refill(s) Start Date: 07/13/14 Stop Date: 07/16/14 Status: Completedpromethazine 25 mg oral tablet 1 tab(s), Oral, q6hr interval, PRN for motion sickness, X 5 days, # 10 tab(s), 0 Refill(s) Start Date: 07/13/14 Stop Date: 07/18/14 Status: Completedpromethazine 25 mg oral tablet 1 tab(s), Oral, q4hr, PRN nausea/vomiting, # 60 tab(s), 0 Refill(s), Start Date : 03/26/16 18:25:00 CDT Start Date: 03/26/16 Stop Date: 05/22/16 Status: Completedpromethazine 25 mg oral tablet 1 tab(s), Oral, q6hr interval, PRN for nausea/vomiting, # 28 tab(s), 0 Refill(s) , Start Date: 10/23/16 11:52:00 PRESS OPERATOR HELPER Start Date: 10/23/16 Stop Date: 11/01/16 Status: Completedpromethazine 25 mg oral tablet 1 tab(s), Oral, q4hr, PRN for nausea/vomiting, # 15 tab(s), 0 Refill(s) Start Date: 03/15/14 Stop Date: 06/13/14 Status: Discontinuedpromethazine 25 mg oral tablet 1 tab(s), Oral, q4hr, PRN for nausea/vomiting, X 5 days, # 30 tab(s), 0 Refill(s ), Start Date: 05/22/16 17:19:00 CDT Start Date: 05/22/16 Stop Date: 05/27/16 Status: Completedpromethazine 25 mg oral tablet 1 tab(s), Oral, q8hr, PRN for nausea/vomiting, # 15 tab(s), 0 Refill(s), Start Date: 03/19/15 13:17:00 CDT Start Date: 03/19/15 Stop Date: 04/07/15 Status: Discontinuedpromethazine 25 mg oral tablet 1 tab(s), Oral, q4hr, PRN for nausea/vomiting, # 30 tab(s), 0 Refill(s) Start Date: 05/22/14 Stop Date: 06/13/14 Status: Discontinuedpromethazine 25 mg oral tablet 1 tab(s), Oral, q4hr, PRN for nausea/vomiting, # 60 tab(s), 0 Refill(s) Start Date: 09/01/14 Stop Date: 10/18/14 Status: Discontinuedpromethazine 25 mg rectal suppository 1 supp, [place], q4hr, PRN for nausea/vomiting, # 18 supp, 0 Refill(s) Start Date: 05/22/14 Stop Date: 05/25/14 Status: DiscontinuedPyridium 200 mg oral tablet 1 tab(s), Oral, BID, # 6 tab(s), 0 Refill(s), Start Date: 03/04/15 23:39:00 CDT Start Date: 03/04/15 Stop Date: 03/10/15 Status: CompletedPyridium 200 mg oral tablet 1 tab(s), Oral, BID, # 4 tab(s), 0 Refill(s), Start Date: 02/28/15 19:43:00 CDT Start Date: 02/28/15 Stop Date: 03/10/15 Status: CompletedPyridium 200 mg oral tablet 1 tab(s), Oral, BID, # 10 tab(s), 0 Refill(s) Start Date: 09/01/14 Stop Date: 09/14/14 Status: CompletedQUEtiapine 100 mg oral tablet See Instructions, Take 2-3 tabs qhs for mood and anxiety, # 90 tab(s), 1 Refill( s), Pharmacy: [facility] [id number] Start Date: 05/25/14 Stop Date: 06/13/14 Status: DiscontinuedSeptra DS 800 mg-160 mg oral tablet 1 tab(s), Oral, BID, X 10 days, # 20 tab(s), 0 Refill(s), Start Date: 12/26/14 18:44:00 PRESS OPERATOR HELPER, Pharmacy: [facility] [id number] Start Date: 12/26/14 Stop Date: 01/05/15 Status: CompletedSEROquel 400 mg, Oral, HS, 0 Refill(s) Start Date: 03/15/14 Stop Date: 06/20/14 Status: DiscontinuedSEROquel 100 mg oral tablet 1 tab(s), Oral, HS, # 30 tab(s), 1 Refill(s), Pharmacy: [facility] [id number] Start Date: 06/29/14 Stop Date: 07/27/14 Status: DiscontinuedSEROquel 200 mg oral tablet 1 tab(s), Oral, HS, # 30 tab(s), 0 Refill(s), Pharmacy: [facility] [id number] Start Date: 06/20/14 Stop Date: 06/29/14 Status: CompletedSEROquel 200 mg oral tablet 1 tab(s), Oral, HS, 0 Refill(s) Start Date: 06/20/14 Stop Date: 06/20/14 Status: Discontinuedsertraline 50 mg oral tablet 1 tab(s), Oral, Daily, # 90 tab(s), 0 Refill(s), Start Date: 03/26/16 16:25:00 CDT Start Date: 03/26/16 Stop Date: 06/06/16 Status: CompletedTenex 1 mg oral tablet 0.5 tab(s), Oral, BID, # 30 tab(s), 3 Refill(s), Start Date: 11/21/14 12:01:00 PRESS OPERATOR HELPER, Pharmacy: [facility] [id number] Start Date: 11/21/14 Stop Date: 12/16/14 Status: CompletedTessalon Perles 100 mg oral capsule 1 cap(s), Oral, TID, # 21 cap(s), 0 Refill(s), Start Date: 10/05/16 15:22:00 PRESS OPERATOR HELPER , [facility] [place] Start Date: 10/05/16 Stop Date: 10/23/16 Status: CompletedTopamax 50 mg oral tablet 1 tab(s), Oral, BID, Start Date: 09/06/14 9:48:00 CDT Start Date: 09/06/14 Stop Date: 09/14/14 Status: Completedtopiramate 100 mg oral tablet 1 tab(s), Oral, BID, # 60 tab(s), 0 Refill(s), Start Date: 09/14/14 11:27:00 CDT Start Date: 09/14/14 Stop Date: 01/21/16 Status: CompletedtraMADol 50 mg oral tablet 2 tab(s), Oral, q12hr, PRN for pain, # 60 tab(s), 0 Refill(s) Start Date: 06/13/14 Stop Date: 06/20/14 Status: DiscontinuedtraMADol 50 mg oral tablet 1 tab(s), Oral, q6hr interval, PRN for pain, # 30 tab(s), 0 Refill(s) Start Date: 05/13/14 Stop Date: 05/21/14 Status: CompletedtraMADol 50 mg oral tablet 1 tab(s), Oral, q12hr, PRN for pain, # 30 tab(s), 0 Refill(s), Start Date: 07/24 12:21:00 CDT, Pharmacy: [facility] Start Date: 07/24/16 Stop Date: 07/30/16 Status: CompletedtraMADol 50 mg oral tablet 1 tab(s), Oral, q6hr, PRN for pain, # 30 tab(s), 0 Refill(s), Start Date: 12:10:00 PRESS OPERATOR HELPER Start Date: 09/30/15 Stop Date: 11/28/15 Status: CompletedtraMADol 50 mg oral tablet 1 tab(s), Oral, q4hr, PRN for pain, # 16 tab(s), 0 Refill(s), Start Date: 20:08:00 PRESS OPERATOR HELPER Start Date: 11/01/16 Stop Date: 11/21/16 Status: CompletedtraMADol 50 mg oral tablet 1 tab(s), Oral, q4hr, PRN for pain, # 20 tab(s), 0 Refill(s) Start Date: 07/10/14 Stop Date: 07/27/14 Status: CompletedtraMADol 50 mg oral tablet 1 tab(s), Oral, q4hr, PRN for pain, # 24 tab(s), 0 Refill(s), Start Date: 16:34:00 PRESS OPERATOR HELPER Start Date: 01/21/15 Stop Date: 03/10/15 Status: CompletedtraMADol 50 mg oral tablet 2 tab(s), Oral, q12hr, PRN for pain, # 120 tab(s), 0 Refill(s), Pharmacy: [facility] [id number] Start Date: 06/20/14 Stop Date: 08/16/14 Status: CompletedtraMADol 50 mg oral tablet 2 tab(s), Oral, q4hr, PRN for pain, 1-2 TABS EVERY 4-6 HOURS PRN PAIN, # 90 tab( s), 0 Refill(s), Start Date: 12/07/14 15:23:15 PRESS OPERATOR HELPER, other reason (Rx) Start Date: 12/07/14 Stop Date: 12/16/14 Status: CompletedtraMADol 50 mg oral tablet 2 tab(s), Oral, q4hr, PRN for pain, # 12 tab(s), 0 Refill(s), Start Date: 17:51:00 PRESS OPERATOR HELPER Start Date: 12/06/14 Stop Date: 12/07/14 Status: CompletedtraMADol 50 mg oral tablet 1 tab(s), Oral, q4hr, PRN for pain, # 16 tab(s), 0 Refill(s), Start Date: 16:44:00 CDT Start Date: 06/06/16 Stop Date: 06/20/16 Status: CompletedTylenol Oral, 0 Refill(s), Start Date: 05/23/15 8:52:00 CDT Start Date: 05/23/15 Stop Date: 06/23/15 Status: CompletedTylenol with Codeine #3 oral tablet 2 tab(s), Oral, q6hr, X 3 days, # 12 tab(s), 0 Refill(s), Start Date: 06/01/16 10:13:00 CDT Start Date: 06/01/16 Stop Date: 06/04/16 Status: CompletedUltram 50 mg oral tablet 1 tab(s), Oral, q12hr, PRN for pain, # 10 tab(s), 0 Refill(s), Start Date: 10/23 11:51:00 PRESS OPERATOR HELPER Start Date: 10/23/16 Stop Date: 11/01/16 Status: CompletedVESIcare 5 mg oral tablet 1 tab(s), Oral, Daily, # 28 tab(s), 0 Refill(s), Start Date: 12/20/14 11:16:00 PRESS OPERATOR HELPER, samples given to patient (Rx), [id number], 09/17/16 Start Date: 12/20/14 Stop Date: 02/06/15 Status: CompletedVESIcare 5 mg oral tablet 1 tab(s), Oral, Daily, # 30 tab(s), 11 Refill(s), Start Date: 12/20/14 11:12:00 PRESS OPERATOR HELPER, Pharmacy: [facility] [id number] Start Date: 12/20/14 Stop Date: 02/06/15 Status: CompletedVESIcare 5 mg oral tablet 1 tab(s), Oral, Daily, # 30 tab(s), 0 Refill(s), Start Date: 11/22/14 10:40:00 PRESS OPERATOR HELPER, [id number], 11/16/16 Start Date: 11/22/14 Stop Date: 12/20/14 Status: CompletedVicodin 5 mg-300 mg oral tablet 1 or 2 tabs, Oral, q6hr interval, PRN pain severe 8-10, Do not work or drive with these medications, X 7 days, # 20 tab(s), 0 Refill(s) Start Date: 03/15/14 Stop Date: 03/22/14 Status: CompletedVicodin 5 mg-300 mg oral tablet 1-2 tabs, Oral, q6hr interval, X 5 days, # 30 tab(s), 0 Refill(s), Start Date: 10/26/14 13:16:00 PRESS OPERATOR HELPER Start Date: 10/26/14 Stop Date: 10/31/14 Status: CompletedVicodin 5 mg-325 mg oral tablet 1-2, Oral, q6hr interval, X 1 days, # 4 tab(s), 0 Refill(s) Start Date: 07/13/14 Stop Date: 07/14/14 Status: CompletedVicodin 5 mg-325 mg oral tablet 1-2, Oral, q6hr interval, X 5 days, # 15 tab(s), 0 Refill(s) Start Date: 07/13/14 Stop Date: 07/18/14 Status: CompletedVicodin 5 mg-325 mg oral tablet 1-2, Oral, q4hr, X 5 days, # 15 tab(s), 0 Refill(s) Start Date: 06/22/14 Stop Date: 06/27/14 Status: CompletedVicodin 5 mg-325 mg oral tablet 1-2, Oral, q6hr interval, X 5 days, # 15 tab(s), 0 Refill(s) Start Date: 08/12/14 Stop Date: 08/16/14 Status: CompletedVyvanse Oral, qAM, 0 Refill(s), Start Date: 12/20/14 10:54:00 PRESS OPERATOR HELPER Start Date: 12/20/14 Stop Date: 12/30/14 Status: DiscontinuedVyvanse 30 mg oral capsule See Instructions, 1 cap(s) Oral qAM for 1 week, then switch to 50mg cap, # 7 cap (s), 0 Refill(s), Start Date: 02/06/15 16:12:00 CDT, Pharmacy: [facility] [id number] Start Date: 02/06/15 Stop Date: 02/14/15 Status: CompletedVyvanse 50 mg oral capsule 1 cap(s), Oral, qAM, JESSY TAYLOR, 0 Refill(s), Start Date: 08/14/15 10:35:00 CDT Start Date: 08/14/15 Status: OrderedVyvanse 50 mg oral capsule 1 cap(s), Oral, qAM, start taking after you have taken 30mg for 1 week, # 30 cap (s), 0 Refill(s), Start Date: 02/14/15 8:00:00 CDT, Pharmacy: [facility] [id number] Start Date: 02/14/15 Stop Date: 02/14/15 Status: CompletedVyvanse 50 mg oral capsule 1 cap(s), Oral, qAM, # 30 cap(s), 0 Refill(s), Start Date: 02/20/15 16:08:38 CDT , Pharmacy: [facility] [id number] Start Date: 02/20/15 Stop Date: 03/10/15 Status: CompletedXanax Oral, TID, 0 Refill(s) Start Date: 03/15/14 Stop Date: 06/08/14 Status: Completedzaleplon 10 mg oral capsule 1 cap(s), Oral, HS, PRN for sleep, 0 Refill(s), Start Date: 09/15/16 12:58:00 CDT Start Date: 09/15/16 Stop Date: 10/04/16 Status: CompletedZofran ODT 4 mg oral tablet, disintegrating 1 tab(s), Oral, q6hr, PRN nausea, # 4 tab(s), 0 Refill(s) Start Date: 07/13/14 Stop Date: 07/13/14 Status: DiscontinuedZofran ODT 4 mg oral tablet, disintegrating 1 tab(s), Oral, q6hr, PRN nausea, X 3 days, # 10 tab(s), 0 Refill(s) Start Date: 07/13/14 Stop Date: 07/13/14 Status: Discontinuedzolpidem 10 mg oral tablet 1 tab(s), Oral, HS, PRN for sleep, # 30 tab(s), 1 Refill(s), Start Date: 10:23:00 PRESS OPERATOR HELPER, Pharmacy: [facility] [id number] Start Date: 12/16/14 Stop Date: 02/27/15 Status: Completedzolpidem 10 mg oral tablet 1 tab(s), Oral, HS, PRN for sleep, # 30 tab(s), 1 Refill(s), Start Date: 9:53:46 CDT, Pharmacy: [facility] [id number] Start Date: 02/27/15 Stop Date: 05/02/15 Status: Completedzolpidem 10 mg oral tablet 1 tab(s), Oral, HS, PRN for sleep, # 30 tab(s), 1 Refill(s), Start Date: 8:49:02 CDT, Pharmacy: [facility] [id number] Start Date: 05/02/15 Stop Date: 05/27/16 Status: Completedzolpidem 5 mg oral tablet 1 tab(s), Oral, HS, PRN for sleep, Start Date: 05/22/16 17:36:00 CDT Start Date: 05/22/16 Stop Date: 09/15/16 Status: Completedzolpidem 5 mg oral tablet 1 tab(s), Oral, HS, PRN for sleep, 0 Refill(s), Start Date: 10/04/16 8:47:00 PRESS OPERATOR HELPER Start Date: 10/04/16 Stop Date: 11/01/16 Status: Completed Results Patient Viewable Results Most recent to oldest [Reference Range]: 1 2 WBC [4.8-10.8 thou/mm3] 7.7 thou/mm3 (12/13/16 6:02 PM) RBC [4.20-5.40 Mil/mm3] 4.52 Mil/mm3 (12/13/16 6:02 PM) Hgb [12.0-16.0 g/dL] 12.4 g/dL (12/13/16 6:02 PM) Hct [37.0-47.0 %] 37.7 % (12/13/16 6:02 PM) MCV [80.0-94.0 fL] 83.4 fL (12/13/16 6:02 PM) MCH [25.0-38.0 pg/cell] 27.4 pg/cell (12/13/16 6:02 PM) MCHC [31.0-37.0 g/dL] 32.9 g/dL (12/13/16 6:02 PM) RDW [1.0-48.0 fL] 43.6 fL (12/13/16 6:02 PM) Platelet [130-400 thou/mm3] 337 thou/mm3 (12/13/16 6:02 PM) Neutrophils % Auto [50.0-75.0 %] 52.6 % (12/13/16 6:02 PM) Immature Granulocyte Auto [0.1-2.0 %] 0.4 % (12/13/16 6:02 PM) Lymphocytes % Auto [15.0-41.0 %] 38.5 % (12/13/16 6:02 PM) Monocytes % Auto [2.0-10.0 %] 7.0 % (12/13/16 6:02 PM) Eosinophils % Auto [0.0-6.0 %] 1.2 % (12/13/16 6:02 PM) Basophil % Auto [0.0-1.0 %] 0.3 % (12/13/16 6:02 PM) Neutrophils Absolute [1.5-5.9 thou/mm3] 4.0 thou/mm3 (12/13/16 6:02 PM) Immature Gran Absolute [0.01-0.03 thou/mm3] 0.03 thou/mm3 (12/13/16 6:02 PM) Lymphocytes Absolute [1.5-4.0 thou/mm3] 3.0 thou/mm3 (12/13/16 6:02 PM) Monocytes Absolute [0.0-0.9 thou/mm3] 0.5 thou/mm3 (12/13/16 6:02 PM) Eosinophil Absolute [0.0-0.7 thou/mm3] 0.1 thou/mm3 (12/13/16 6:02 PM) Basophil Absolute [0.0-0.2 thou/mm3] 0.0 thou/mm3 (12/13/16 6:02 PM) Sodium Lvl [135-144 mEq/L] 138 mEq/L (12/13/16 6:02 PM) Potassium Lvl [3.3-4.8 mEq/L] 4.1 mEq/L (12/13/16 6:02 PM) Chloride Lvl [98-107 mEq/L] 99 mEq/L (12/13/16 6:02 PM) Bicarbonate Lvl [22-30 mmol/L] 26 mmol/L (12/13/16 6:02 PM) Anion Gap [10.0-20.0] 17.1 (12/13/16 6:02 PM) Glucose Lvl [70-108 mg/dL] 104 mg/dL (12/13/16 6:02 PM) BUN [7-21 mg/dL] 7 mg/dL (12/13/16 6:02 PM) Creatinine Lvl [0.50-1.20 mg/dL] 0.69 mg/dL (12/13/16 6:02 PM) BUN/Creat Ratio 10.1 *NA* (12/13/16 6:02 PM) eGFR AA [>=60] >60 (12/13/16 6:02 PM) eGFR GIRISH [>=60] >60 (12/13/16 6:02 PM) Calcium Lvl [8.6-10.2 mg/dL] 9.4 mg/dL (12/13/16 6:02 PM) Total Protein [6.4-8.3 g/dL] 7.7 g/dL (12/13/16 6:02 PM) Albumin Lvl [3.5-5.2 g/dL] 4.2 g/dL (12/13/16 6:02 PM) Globulin 3.5 *NA* (12/13/16 6:02 PM) A/G Ratio [0.9-1.8] 1.2 (12/13/16 6:02 PM) Bilirubin Total [0.1-1.0 mg/dL] 0.2 mg/dL (12/13/16 6:02 PM) Alkaline Phosphatase [39-129 unit/L] 94 unit/L (12/13/16 6:02 PM) AST [0-39 unit/L] 23 unit/L (12/13/16 6:02 PM) ALT [0-40 unit/L] 24 unit/L (12/13/16 6:02 PM) C Reactive Protein [0.0-0.4 mg/dL] 0.8 mg/dL *HI* (12/13/16 6:02 PM) Estimated Creatinine Clearance 158.66 mL/min 142.17 mL/min (12/13/16 6:46 PM) (12/13/16 5:33 PM) UA Color [Yellow] Yellow (12/13/16 8:21 PM) Urine Clarity [Clear] Clear (12/13/16 8:21 PM) Specific [place] [1.000-1.060] 1.025 (12/13/16 8:21 PM) Urine pH [5-8] 6 (12/13/16 8:21 PM) Ketones Negative (12/13/16 8:21 PM) Bilirubin [Negative] Negative (12/13/16 8:21 PM) Urine Protein [Negative] Negative (12/13/16 8:21 PM) Glucose [Negative] Negative (12/13/16 8:21 PM) Urine HGB [Negative] 1+ *ABN* (12/13/16 8:21 PM) Urobilinogen <2.0 (12/13/16 8:21 PM) Nitrite [Negative] Negative (12/13/16 8:21 PM) Leuk Esterase [Negative] Negative (12/13/16 8:21 PM) Urine WBC [0-5] 0-5 (12/13/16 8:21 PM) Urine RBC [0-2] 0-2 (12/13/16 8:21 PM) Squamous Epi [0-5] 0-5 (12/13/16 8:21 PM) Bacteria Trace *ABN* (12/13/16 8:21 PM) Mucus 4+ *ABN* (12/13/16 8:21 PM) Immunizations Given and Recorded Vaccine Date Status Refusal Reason tetanus/diphth/pertuss (Tdap) adult/adol 05/13/14 Given influenza virus vaccine, inactivated1 08/30/15 Recorded 1Result Comment: [09/05/2015] Per Pt states she revieved flu vaccine thru [facility] on [address]. Procedures Procedure Date Related Diagnosis Body Site Diagnostic Laparoscopy1 08/16/15 Arthrotomy Knee2 06/27/15 Insertion Interstim Generator Stage 23 05/09/15 Insertion Interstim Generator Stage 24 05/08/15 Insertion Interstim Electrode Stage 1 05/01/15 NonParalytic5 UDS - Urodynamics 03/20/15 Cystoscopy - SN6 10/26/14 Colonoscopy7 07/25/14 Tubal ligation8 01/16/05 Appendectomy Appendectomy Breast lumpectomy section section9 Cholecystectomy Cholecystectomy Colonoscopy Esophagogastroduodenoscopy [id number] Lateral release of knee11 Lumpectomy of Procedure on bladder Stent [id number] Stent Tubal ligation 1auto-populated from documented surgical [id number] from documented surgical [id number] from documented surgical [id number] from documented surgical [id number]-rjjemstch from documented surgical [id number]- populated from documented surgical [id number] from documented surgical [id number] in [place]9x 310Wisdom [id number] [id number] breast -- [id number] [id number] duct Social History No data available for this section Assessment and Plan No data available for this section
--- OUTSIDE RECORDS SUMMARY | 2017-01-18 15:06 | XMS REPORT | Summary of Care ---
:1980 Author Organization [facility] Address [address] [place] [id number]- Care Team Providers Name Role Phone Jessy Taylor Primary Care Physician Encounter Date(s): 04/19/16 - 04/19/16 [facility] [address] [place] [address]- [facility] Final: Unspecified open wound of vagina and vulva, initial encounter Discharge Diagnosis: Traumatic vaginal laceration Discharge Disposition: 01 Discharged to Home or Self Care Attending Physician: CAS Escobar Admitting Physician: CAS Escobar Vital Signs Most recent to oldest [Reference 1 2 3 Range]: Temperature Temporal Artery 36.7 DegC [36-38 DegC] (04/19/16 11:40 PM) Temperature Temporal Artery 36.7 DegC [36.0-38.0 DegC] (04/19/16 9:11 PM) Heart Rate Monitored [60-100 98 bpm 102 bpm bpm] (04/19/16 11:40 PM) *HI* (04/19/16 9:11 PM) Respiratory Rate [12-20 br/min] 20 br/min 16 br/min 20 br/min (04/19/16 11:40 PM) (04/19/16 10:55 PM) (04/19/16 9:11 PM) SpO2 99 % 100 % (04/19/16 11:40 PM) (04/19/16 9:11 PM) SpO2 Location Right hand (04/19/16 11:40 PM) Blood Pressure [90-130/60-90 169/92mmHg 171/84mmHg mmHg] *HI* *HI* (04/19/16 11:40 PM) (04/19/16 9:11 PM) Blood Pressure Location Left arm (04/19/16 11:40 PM) Most recent to oldest [Reference Range]: 1 2 3 Weight Estimated 116.3 kg (04/19/16 9:11 PM) Weight Dosing 116.30 kg1 (04/19/16 9:14 PM) 1Result Comment: This result was because the dosing weight was either not entered or it is>30 days old. This result is based off: Weight Estimated April 19, 2016 21:11:00 CDT by Swetha Rodriguez Problem List Condition Effective Dates Status Health [...] Active left(Confirmed) OCD - Obsessive-compulsive Active disorder(Confirmed) Post-operative pain(Confirmed) 05/05/15 Active Pelvic inflammatory Active disease(Confirmed) PERSONALITY DISORDERS(Confirmed) [...] tab(s), 0 Refill(s), Start Date: 01/03/15 15:28:02 [employer], [facility] [id number] Special Instructions: take 1 every morning and 1 every noon take on empty stomach Start Date: 01/03/15 Stop Date: 01/10/15 Status: DiscontinuedAdderall 20 mg oral tablet 1 tab(s), Oral, BID, take 1 tab in the morning and 1 tab at noon., # 60 tab(s), 0 Refill(s), Start Date: 03/10/15 9:18:00 CDT, Pharmacy: [facility] [id number] Special Instructions: take 1 tab in the morning and 1 tab at noon. Start Date: 03/10/15 Stop Date: 04/07/15 Status: DiscontinuedAdderall 20 mg oral tablet 1 tab(s), Oral, BID, take 1 tab in the morning and 1 tab at noon., # 60 tab(s), 0 Refill(s), Start Date: 04/07/15 9:32:24 CDT, Pharmacy: [facility] [id number] Special Instructions: take 1 tab in the morning and 1 tab at noon. Start Date: 04/07/15 Stop Date: 05/08/15 Status: CompletedAdderall 20 mg oral tablet 1 tab(s), Oral, BID, take 1 tab in the morning and 1 tab at noon., # 60 tab(s), 0 Refill(s), Start Date: 06/06/15 9:28:56 CDT, Pharmacy: [facility] Special Instructions: take 1 tab in the morning and 1 tab at noon. Start Date: 06/06/15 Stop Date: 08/14/15 Status: CompletedAdderall 20 mg oral tablet 1 tab(s), Oral, BID, take 1 tab in the morning and 1 tab at noon., # 60 tab(s), 0 Refill(s), Start Date: 05/08/15 11:52:49 CDT, Pharmacy: [facility] [id number] Special Instructions: take 1 tab in the morning and 1 tab at noon. Start Date: 05/08/15 Stop Date: 06/06/15 Status: CompletedAdderall 20 mg oral tablet 1 tab(s), Oral, BID, take 1 tab qam and 1 tab at noon., # 60 tab(s), 0 Refill(s) , Start Date: 01/10/15 10:07:00 [employer], Pharmacy: [facility] [id number] Special Instructions: take 1 tab qam and 1 tab at noon. Start Date: 01/10/15 Stop Date: 02/06/15 Status: Discontinuedalbuterol CFC free 90 mcg/inh inhalation aerosol 2 puff(s), Inhale, QID, PRN for wheezing, X 7 days, # 1 EA, 0 Refill(s), Start Date: 12/16/15 10:00:00 [employer], Pharmacy: [facility] Start Date: 12/16/15 Stop Date: 12/23/15 Status: CompletedAmbien 5 mg oral tablet 1 tab(s), Oral, HS, PRN for sleep, # 30 tab(s), 1 Refill(s), called to pharmacy (Rx) Start Date: 08/16/14 Stop Date: 09/14/14 Status: DiscontinuedAmbien 5 mg oral tablet 1 tab(s), Oral, HS, PRN for sleep, # 30 tab(s), 1 Refill(s), Start Date: 11:37:30 [employer], Pharmacy: [facility] [id number] Start Date: 10/18/14 Stop Date: 11/21/14 Status: DiscontinuedAmbien 5 mg oral tablet 1 tab(s), Oral, HS, PRN for sleep, # 30 tab(s), 3 Refill(s), Start Date: 12:01:43 [employer], Pharmacy: [facility] [id number] Start Date: 11/21/14 Stop Date: 12/16/14 Status: [...] tab(s), 11 Refill(s), Start Date: 11/03/14 10:16:00 [employer] , Pharmacy: [facility] [id number] Start Date: 11/03/14 Stop Date: 11/21/14 Status: Completedamitriptyline 50 mg oral tablet 1 tab(s), Oral, HS, # 30 tab(s), 0 Refill(s), Start Date: 11/21/14 11:30:00 [employer] Start Date: 11/21/14 Stop Date: 02/06/15 Status: Completedamoxicillin 500 mg oral capsule 1 cap(s), Oral, TID, X 10 days, # 30 cap(s), 0 Refill(s), Pharmacy: [facility] [place] Start Date: 05/07/14 Stop Date: 05/17/14 [...] tab(s), 0 Refill(s), Start Date: 10/18/14 11:37:13 [employer], Pharmacy: [facility] [id number] Start Date: 10/18/14 Stop Date: 11/21/14 Status: DiscontinuedAtivan 1 mg oral tablet 0.5 - 1 tab, Oral, BID, PRN for anxiety, # 60 tab(s), 3 Refill(s), Start Date: 11/21/14 12:01:39 [employer], Pharmacy: [facility] [id number] Start Date: 11/21/14 Stop Date: 12/16/14 Status: [...] from tomorrow for 4 days, 0 Refill(s) Special Instructions: from tomorrow for 4 days Start Date: 06/13/14 Stop Date: 06/20/14 Status: DiscontinuedBactrim DS 800 mg-160 mg oral tablet 1 tab(s), Oral, BID, X 5 days, # 10 tab(s), 0 Refill(s) Start Date: 06/22/14 Stop Date: 06/27/14 Status: CompletedBentyl 10 mg oral capsule 1 cap(s), Oral, QID, PRN abdominal pain, # 15 cap(s), 0 Refill(s), Start Date: 10/15/15 17:02:00 [employer] Start Date: 10/15/15 Stop Date: 01/21/16 Status: Completedcephalexin 500 mg oral tablet 1 tab(s), Oral, QID, # 28 tab(s), 0 Refill(s) Start Date: 05/13/14 Stop Date: 06/13/14 Status: DiscontinuedCheratussin AC 10 mg-100 mg/5 mL oral syrup 5 mL, Oral, q4hr, PRN for cough, # 120 mL, 0 Refill(s), Start Date: 12/26/14 18: 43:00 [employer] Start Date: 12/26/14 Stop Date: 01/09/15 Status: Completedcimetidine 300 mg oral tablet 1 tab(s), Oral, TID, # 15 tab(s), 0 Refill(s) Start Date: 06/02/14 Stop Date: 06/20/14 Status: DiscontinuedCipro 500 mg oral tablet 1 tab(s), Oral, q12hr, # 2 tab(s), 0 Refill(s), Start Date: 10/26/14 13:16:00 [employer] Start Date: 10/26/14 Stop Date: 11/03/14 Status: CompletedCipro 500 mg oral tablet 1 tab(s), Oral, q12hr, # 20 tab(s), 0 Refill(s) Start Date: 09/01/14 Stop Date: 09/27/14 Status: Discontinuedcitalopram 10 mg oral tablet 1 tab(s), Oral, Daily, # 30 tab(s), 1 Refill(s), Pharmacy: [facility] [id number] Start Date: 05/25/14 Stop Date: 06/13/14 Status: Discontinuedcitalopram 10 mg oral tablet 1 tab(s), Oral, Daily, # 30 tab(s), 0 Refill(s) Start Date: 06/13/14 Stop Date: 06/20/14 Status: DiscontinuedcloNIDine 0.1 mg oral tablet 0.5 tab, Oral, BID, discontinue and call clinic in case of fatigue or dizziness , # 30 tab(s), 0 Refill(s), Start Date: 10/18/14 11:38:00 [employer], Pharmacy: [facility] [id number] Special Instructions: discontinue and call clinic in case of fatigue or dizziness Start Date: 10/18/14 Stop Date: 11/21/14 Status: CompletedDexilant 60 mg oral delayed release capsule 1 cap(s), Oral, Daily, # 30 cap(s), 0 Refill(s), Start Date: 05/01/15 6:17:00 CDT Start Date: 05/01/15 Status: Ordereddextroamphetamine 5 mg oral tablet 1 tab(s), Oral, BID, take 1 tab in the morning and 1 tab at noon., # 60 tab(s), 0 Refill(s), Start Date: 02/14/15 10:50:00 CDT, [facility] [id number] Special Instructions: take 1 tab in the morning and 1 tab at noon. Start Date: 02/14/15 Stop Date: 03/10/15 Status: Discontinueddextroamphetamine-amphetamine 20 mg oral tablet 1 tab(s), Oral, BID, # 60 tab(s), 0 Refill(s), Start Date: 02/09/15 9:33:42 CDT , [facility] [id number] Start Date: 02/09/15 Stop Date: 02/14/15 Status: CompletedDiflucan 150 mg oral tablet 1 tab(s), Oral, Every other day, # 5 tab(s), 0 Refill(s), Start Date: 03/14/16 17:57:30 CDT, [facility] [id number] Start Date: 03/14/16 Stop Date: 03/26/16 Status: CompletedDiflucan 150 mg oral tablet 1 tab(s), Oral, Every other day, # 5 tab(s), 0 Refill(s), Start Date: 03/13/16 18:45:00 CDT, Pharmacy: [facility] Start Date: 03/13/16 Stop Date: 03/14/16 Status: DiscontinuedDiflucan 150 mg oral tablet 1 tab(s), Oral, ONETIME, # 1 tab(s), 0 Refill(s), Start Date: 12/16/15 9:59:00 [employer], Pharmacy: [facility] Start Date: 12/16/15 Stop Date: 01/21/16 [...] Refill(s), Start Date: 05/04/15 10:05:00 CDT, Pharmacy: [facility] [id number] Start Date: 05/04/15 Stop Date: 05/09/15 Status: [...] tab(s), 0 Refill(s), Start Date: 10/29/14 18:14:00 [employer] Start Date: 10/29/14 Stop Date: 11/21/14 Status: [...] gm, 0 Refill(s), Start Date: 12/26 18:44:00 [employer], Pharmacy: [facility] [id number] Special Instructions: in each nostril Start Date: 12/26/14 Stop Date: 02/06/15 Status: Completedfluconazole 150 mg oral tablet tab(s), Oral, Daily, 0 Refill(s) Start Date: 06/13/14 Stop Date: 06/13/14 Status: Discontinuedfluticasone 50 mcg/inh nasal spray 2 spray(s), Nasal, Daily, X 14 days, # 1 EA, 0 Refill(s), Start Date: 12/16/15 9 :59:00 [employer], Pharmacy: [facility] Start Date: 12/16/15 Stop Date: 12/30/15 Status: Completedgabapentin See Instructions, 100 mg Oral take 2 in am and 2 at noon and 1 at hs, 0 Refill (s) Special Instructions: 100 mg Oral take 2 in am and 2 at noon and 1 at hs Start Date: 03/15/14 Stop Date: 06/20/14 Status: Discontinuedgabapentin 100 mg oral capsule 2 cap(s), Oral, HS, # 60 cap(s), 0 Refill(s), Pharmacy: [facility] [id number] Start Date: 06/20/14 Stop Date: 08/16/14 Status: Completedgabapentin 100 mg oral capsule 2 cap(s), Oral, HS, 0 Refill(s) Start Date: 06/20/14 Stop Date: 06/20/14 Status: Discontinuedgabapentin 300 mg oral capsule 1 cap(s), Oral, BID, 0 Refill(s) Start Date: 06/20/14 Stop Date: 06/20/14 Status: Discontinuedgabapentin 300 mg oral capsule 1 cap(s), Oral, BID, # 60 cap(s), 0 Refill(s), Pharmacy: [facility] [id number] Start Date: 06/20/14 Stop Date: 08/16/14 Status: CompletedHYDROcodone Oral, q12hr interval, 0 Refill(s), Start Date: 10/20/14 14:03:00 [employer] Start Date: 10/20/14 Stop Date: 11/21/14 Status: CompletedHYDROcodone-acetaminophen 5 mg-325 mg oral tablet 2 tab(s), Oral, q4hr, PRN for pain, 0 Refill(s), Start Date: 06/23/15 10:20:00 CDT Start Date: 06/23/15 Stop Date: 10/15/15 Status: CompletedHYDROcodone-acetaminophen 5 mg-325 mg oral tablet 1 tab(s), Oral, q6hr, PRN for pain, # 30 tab(s), 0 Refill(s), Start Date: 15:24:00 [employer], other reason (Rx) Start Date: 12/07/14 Stop Date: 02/06/15 Status: CompletedHYDROcodone-acetaminophen 5 mg-325 mg oral tablet 2 tab(s), Oral, q6hr, X 3 days, # 15 tab(s), 0 Refill(s), Start Date: 07/29/15 23:32:00 CDT Start Date: 07/29/15 Stop Date: 08/01/15 Status: CompletedHYDROcodone-acetaminophen 5 mg-325 mg oral tablet 2 tab(s), Oral, q6hr, X 3 days, # 8 tab(s), 0 Refill(s), Start Date: 12/04/15 21 :39:00 [employer] Start Date: 12/04/15 Stop Date: 12/07/15 Status: CompletedHYDROcodone-acetaminophen 5 mg-325 mg oral tablet 1-2 tab(s), Oral, q6hr interval, # 12 tab(s), 0 Refill(s), Start Date: 02/28/15 19:43:00 CDT Start Date: 02/28/15 Stop Date: 03/03/15 Status: CompletedHYDROcodone-acetaminophen 5 mg-325 mg oral tablet 2 tab(s), Oral, q4hr, # 20 tab(s), 0 Refill(s) Start Date: 05/26/14 Stop Date: 05/30/14 Status: Completedhydrocortisone 2.5% topical cream 1 stacy, Topical, TID, 0 Refill(s) Start Date: 06/20/14 Stop Date: 09/27/14 Status: DiscontinuedhydrOXYzine pamoate 50 mg oral capsule 1-2 caps, Oral, HS, PRN sleep, # 60 tab(s), 1 Refill(s), Pharmacy: [facility] [id number] Start Date: 06/29/14 Stop Date: 07/27/14 Status: DiscontinuedKeflex 500 mg oral capsule 1 cap(s), Oral, TID, # 9 cap(s), 0 Refill(s), Start Date: 05/01/15 9:36:00 CDT Start Date: 05/01/15 Stop Date: 05/12/15 Status: CompletedKeflex 500 mg oral capsule 1 cap(s), Oral, TID, # 9 cap(s), 0 Refill(s), Start Date: 05/08/15 8:56:00 CDT, Pharmacy: [facility] [id number] Start Date: 05/08/15 Stop Date: 05/09/15 Status: CompletedLatuda 120 mg oral tablet 1 tab(s), Oral, Daily, # 30 tab(s), 0 Refill(s), Start Date: 04/07/15 9:32:00 CDT, Pharmacy: [facility] [id number] Start Date: 04/07/15 Stop Date: 05/17/15 Status: CompletedLatuda 120 mg oral tablet 1 tab(s), Oral, Daily, # 30 tab(s), 1 Refill(s), Start Date: 05/17/15 8:34:10 CDT, Pharmacy: [facility] [id number] Start Date: 05/17/15 Status: OrderedLatuda 20 mg oral tablet 3 tab(s), Oral, qPM, # 90 tab(s), 0 Refill(s), Pharmacy: [facility] [id number] Start Date: 06/20/14 Stop Date: 06/21/14 Status: DiscontinuedLatuda 20 mg oral tablet 3 tab(s), Oral, qPM, 0 Refill(s) Start Date: 06/20/14 Stop Date: 06/20/14 Status: DiscontinuedLatuda 60 mg oral tablet 1 tab(s), Oral, Daily, # 28 tab(s), 1 Refill(s), Pharmacy: [facility] [id number], [id number], 10/16/16 Start Date: 06/29/14 Stop Date: 07/19/14 Status: CompletedLatuda 60 mg oral tablet 1 tab(s), Oral, Daily, # 30 tab(s), 1 Refill(s), Pharmacy: [facility] [id number], 10/16/16 Start Date: 08/16/14 Stop Date: 09/14/14 Status: DiscontinuedLatuda 60 mg oral tablet 1 tab(s), Oral, Daily, # 28 tab(s), 0 Refill(s), Start Date: 10/18/14 11:37:45 [employer], [id number], 12/17/17 Start Date: 10/18/14 Stop Date: 11/21/14 Status: DiscontinuedLatuda 60 mg oral tablet 1 tab(s), Oral, Daily, # 28 tab(s), 0 Refill(s), Pharmacy: [facility] [id number], 10/16/16 Start Date: 07/19/14 Stop Date: 07/27/14 Status: CompletedLatuda 60 mg oral tablet 1 tab(s), Oral, Daily, # 28 tab(s), 0 Refill(s), Start Date: 10/18/14 11:37:15 [employer], samples given to patient (Rx), 10/16/16 Start Date: 10/18/14 Stop Date: 10/24/14 Status: CompletedLatuda 60 mg oral tablet 1 tab(s), Oral, Daily, # 30 tab(s), 1 Refill(s), Start Date: 09/14/14 11:53:31 CDT, Pharmacy: [facility] [id number], 10/16/16 Start Date: 09/14/14 Stop Date: 10/18/14 Status: CompletedLatuda 60 mg oral tablet 1 tab(s), Oral, Daily, # 28 tab(s), 0 Refill(s), samples given to patient (Rx), [id number], 10/16/16 Start Date: 06/21/14 Stop Date: 06/29/14 Status: CompletedLatuda 60 mg oral tablet 1 tab(s), Oral, Daily, # 30 tab(s), 1 Refill(s), Pharmacy: [facility] [id number], 10/16/16 Start Date: 07/27/14 Stop Date: 08/16/14 Status: DiscontinuedLatuda 80 mg oral tablet 1 tab(s), Oral, Daily, with food, # 30 tab(s), 1 Refill(s), Start Date: 8:42:36 CDT, Pharmacy: [facility] Special Instructions: with food Start Date: 03/20/15 Stop Date: 04/07/15 Status: DiscontinuedLatuda 80 mg oral tablet 1 tab(s), Oral, Daily, with food, # 30 tab(s), 1 Refill(s), Start Date: 17:40:04 [employer], Pharmacy: [facility] Special Instructions: with food Start Date: 01/12/15 Stop Date: 03/20/15 Status: CompletedLatuda 80 mg oral tablet 1 tab(s), Oral, Daily, with food, # 30 tab(s), 1 Refill(s), Start Date: 12:02:00 [employer], Pharmacy: [facility] Special Instructions: with food Start Date: 11/21/14 Stop Date: 01/12/15 Status: CompletedLevaquin 500 mg oral tablet 1 tab(s), Oral, Daily, X 10 days, # 10 tab(s), 0 Refill(s), Start Date: 9:59:00 [employer], Pharmacy: [facility] Start Date: 12/16/15 Stop Date: 12/26/15 Status: CompletedLidoderm 5% topical film Topical, HS, 0 Refill(s) Start Date: 06/13/14 Stop Date: 06/20/14 Status: Discontinuedlisdexamfetamine 30 mg oral capsule 1 cap(s), Oral, qAM, # 30 cap(s), 0 Refill(s), Start Date: 12/16/14 10:24:00 [employer] , Pharmacy: [facility] [id number] Start Date: 12/16/14 Stop Date: 12/30/14 Status: Discontinuedlisdexamfetamine 50 mg oral capsule 1 cap(s), Oral, qAM, # 30 cap(s), 0 Refill(s), Start Date: 12/30/14 11:56:00 [employer] , [facility]: [email or web address] [id number] Start Date: 12/30/14 Stop Date: 01/10/15 Status: [...] tab(s), 1 Refill(s), called to pharmacy (Rx) Special Instructions: take 0.5 - 1 tab TID as needed for anxiety Start Date: 06/08/14 Stop Date: 06/13/14 Status: DiscontinuedLORazepam 1 mg oral tablet See Instructions, PRN for anxiety, take 0.5 - 1 tab TID as needed for anxiety, # 90 tab(s), 1 Refill(s), called to pharmacy (Rx) Special Instructions: take 0.5 - 1 tab TID as needed for anxiety Start Date: 05/25/14 Stop Date: 06/08/14 Status: CompletedLovenox 40 mg, Subcutaneous, Daily, 0 Refill(s) Start Date: 06/13/14 Stop Date: 06/20/14 Status: DiscontinuedLovenox 60 mg/0.6 mL injectable solution 0.6 mL, Subcutaneous, Daily, Start Date: 01/21/16 15:05:00 [employer] Start Date: 01/21/16 Status: OrderedLutera 100 mcg-20 mcg oral tablet 1 tab(s), Oral, Daily, 2 tabs for 3 days, then 1 tab daily. Use continuously by skipping the last 7 pills and starting the next pack., # 56 tab(s), 0 Refill(s) , Start Date: 08/11/15 18:56:00 CDT, Pharmacy: [facility] [id number] Special Instructions: 2 tabs for 3 days, then 1 tab daily. Use continuously by skipping the last 7 pills and starting the next pack. Start Date: 08/11/15 Stop Date: 10/15/15 Status: CompletedLuvox Oral, 0 Refill(s) Start Date: 03/15/14 Stop Date: 05/25/14 Status: Discontinuedmirtazapine 15 mg oral tablet 0.5 - 1 tab, Oral, HS, # 30 tab(s), 1 Refill(s), Pharmacy: [facility] [id number] Start Date: 07/27/14 Stop Date: 08/16/14 Status: [...] 0 Refill(s), Start Date: 08/14/15 11:12:00 CDT Special Instructions: 1-2 tabs by mouth every 4 hours when necessary pain. Start Date: 08/14/15 Stop Date: 10/15/15 Status: CompletedNorco 5 mg-325 mg oral tablet 1 tab(s), Oral, q4hr, PRN for pain, # 24 tab(s), 0 Refill(s), Start Date: 18:24:00 [employer] Start Date: 11/28/15 Stop Date: 12/03/15 Status: [...] Refill(s), Start Date: 01/23/15 13:06:00 CDT, Pharmacy: [facility] [id number] Start Date: 01/23/15 Stop Date: 03/10/15 Status: CompletedoxyCODONE-acetaminophen 5 mg-325 mg oral tablet 1 tab(s), Oral, q4hr, PRN for pain, Dispense, # 2 tab(s), 0 Refill(s), Start Date: 01/20/16 2:59:00 [employer] Special Instructions: Dispense Start Date: 01/20/16 Stop Date: 01/21/16 Status: CompletedoxyCODONE-acetaminophen 5 mg-325 mg oral tablet 1 tab(s), Oral, q4hr, PRN for pain, # 10 tab(s), 0 Refill(s), Start Date: 2:58:00 [employer] Start Date: 01/20/16 Stop Date: 01/22/16 Status: [...] Date: 03/28/16 Status: CompletedPercocet 5/325 oral tablet 1 tab(s), Oral, q6hr, PRN for pain, X 3 days, # 12 tab(s), 0 Refill(s), Start Date: 12/12/14 15:48:00 [employer] Start Date: 12/12/14 Stop Date: 12/15/14 Status: [...] Date: 07/08/15 Status: CompletedPercocet 5/325 oral tablet 2 tab(s), [...] tab(s), 0 Refill(s), Start Date: 09/30/15 12:10:00 [employer] Start Date: 09/30/15 Stop Date: 10/25/15 Status: [...] CompletedPhenergan 25 mg rectal suppository 1 supp, AK, q6hr interval, # 12 supp, 0 Refill(s), Start Date: 01/28/16 4:33:00 CDT Start Date: 01/28/16 Stop Date: 02/02/16 Status: Orderedphentermine 15 mg oral capsule cap(s), Oral, Daily [...] : 03/26/16 18:25:00 CDT Start Date: 03/26/16 Status: Orderedpromethazine 25 mg oral tablet 1 tab(s), Oral, [...] Discontinuedpromethazine 25 mg rectal suppository 1 supp, AK, q4hr, PRN for nausea/vomiting, # 18 supp, [...] # 90 tab(s), 1 Refill( s), Pharmacy: [facility] [id number] Special Instructions: Take 2-3 tabs qhs for mood and anxiety Start Date: 05/25/14 Stop Date: 06/13/14 Status: DiscontinuedSeptra DS 800 mg-160 mg oral tablet 1 tab(s), Oral, BID, X 10 days, # 20 tab(s), 0 Refill(s), Start Date: 12/26/14 18:44:00 [employer], Pharmacy: [facility] [id number] Start Date: 12/26/14 Stop Date: 01/05/15 Status: CompletedSEROquel 400 mg, Oral, HS, 0 Refill(s) Start Date: 03/15/14 Stop Date: 06/20/14 Status: DiscontinuedSEROquel 100 mg oral tablet 1 tab(s), Oral, HS, # 30 tab(s), 1 Refill(s), Pharmacy: [facility] [id number] Start Date: 06/29/14 Stop Date: 07/27/14 Status: DiscontinuedSEROquel 200 mg oral tablet 1 tab(s), Oral, HS, # 30 tab(s), 0 Refill(s), Pharmacy: [facility] [id number] Start Date: 06/20/14 Stop Date: 06/29/14 Status: CompletedSEROquel 200 mg oral tablet 1 tab(s), Oral, HS, 0 Refill(s) Start Date: 06/20/14 Stop Date: 06/20/14 Status: Discontinuedsertraline 50 mg oral tablet 1 tab(s), Oral, Daily, # 90 tab(s), 0 Refill(s), Start Date: 03/26/16 16:25:00 CDT Start Date: 03/26/16 Status: OrderedTenex 1 mg oral tablet 0.5 tab(s), Oral, BID, # 30 tab(s), 3 Refill(s), Start Date: 11/21/14 12:01:00 [employer], Pharmacy: [facility] [id number] Start Date: 11/21/14 Stop Date: 12/16/14 Status: CompletedTopamax 50 mg oral tablet 1 [...] 30 tab(s), 0 Refill(s), Start Date: 12:10:00 [employer] Start Date: 09/30/15 Stop Date: 11/28/15 Status: CompletedtraMADol 50 mg oral tablet 1 tab(s), Oral, q4hr, PRN for pain, # 20 tab(s), 0 Refill(s) Start Date: 07/10/14 Stop Date: 07/27/14 Status: CompletedtraMADol 50 mg oral tablet 1 tab(s), Oral, q4hr, PRN for pain, # 24 tab(s), 0 Refill(s), Start Date: 16:34:00 [employer] Start Date: 01/21/15 Stop Date: 03/10/15 Status: CompletedtraMADol 50 mg oral tablet 2 tab(s), Oral, q12hr, PRN for pain, # 120 tab(s), 0 Refill(s), Pharmacy: [facility] [id number] Start Date: 06/20/14 Stop Date: 08/16/14 Status: CompletedtraMADol 50 mg oral tablet 2 tab(s), Oral, q4hr, PRN for pain, 1-2 TABS EVERY 4-6 HOURS PRN PAIN, # 90 tab( s), 0 Refill(s), Start Date: 12/07/14 15:23:15 [employer], other reason (Rx) Special Instructions: 1-2 TABS EVERY 4-6 HOURS PRN PAIN Start Date: 12/07/14 Stop Date: 12/16/14 Status: CompletedtraMADol 50 mg oral tablet 2 tab(s), Oral, q4hr, PRN for pain, # 12 tab(s), 0 Refill(s), Start Date: 17:51:00 [employer] Start Date: 12/06/14 Stop Date: 12/07/14 Status: CompletedTylenol Oral, 0 Refill(s), Start Date: 05/23/15 8:52:00 CDT Start Date: 05/23/15 Stop Date: 06/23/15 Status: CompletedVESIcare 5 mg oral tablet 1 tab(s), Oral, Daily, # 28 tab(s), 0 Refill(s), Start Date: 12/20/14 11:16:00 [employer], samples given to patient (Rx), [id number], 09/17/16 Start Date: 12/20/14 Stop Date: 02/06/15 Status: CompletedVESIcare 5 mg oral tablet 1 tab(s), Oral, Daily, # 30 tab(s), 11 Refill(s), Start Date: 12/20/14 11:12:00 [employer], Pharmacy: [facility] [id number] Start Date: 12/20/14 Stop Date: 02/06/15 Status: CompletedVESIcare 5 mg oral tablet 1 tab(s), Oral, Daily, # 30 tab(s), 0 Refill(s), Start Date: 11/22/14 10:40:00 [employer], [id number], 11/16/16 Start Date: 11/22/14 Stop Date: 12/20/14 Status: CompletedVicodin 5 mg-300 mg oral tablet 1 or 2 tabs, Oral, q6hr interval, PRN pain severe 8-10, Do not work or drive with these medications, X 7 days, # 20 tab(s), 0 Refill(s) Special Instructions: Do not work or drive with these medications Start Date: 03/15/14 Stop Date: 03/22/14 Status: CompletedVicodin 5 mg-300 mg oral tablet 1-2 tabs, Oral, q6hr interval, X 5 days, # 30 tab(s), 0 Refill(s), Start Date: 10/26/14 13:16:00 [employer] Start Date: 10/26/14 Stop Date: 10/31/14 Status: [...] qAM, 0 Refill(s), Start Date: 12/20/14 10:54:00 [employer] Start Date: 12/20/14 Stop Date: 12/30/14 Status: DiscontinuedVyvanse 30 mg oral capsule See Instructions, 1 cap(s) Oral qAM for 1 week, then switch to 50mg cap, # 7 cap (s), 0 Refill(s), Start Date: 02/06/15 16:12:00 CDT, Pharmacy: [facility] [id number] Special Instructions: 1 cap(s) Oral qAM for 1 week, then switch to 50mg cap Start Date: 02/06/15 Stop Date: 02/14/15 Status: CompletedVyvanse 50 mg oral capsule 1 cap(s), Oral, qAM, JESSY TAYLOR, 0 Refill(s), Start Date: 08/14/15 10:35:00 CDT Special Instructions: JESSY TAYLOR Start Date: 08/14/15 Status: OrderedVyvanse 50 mg oral capsule 1 cap(s), Oral, qAM, start taking after you have taken 30mg for 1 week, # 30 cap (s), 0 Refill(s), Start Date: 02/14/15 8:00:00 CDT, Pharmacy: [facility] [id number] Special Instructions: start taking after you have taken 30mg for 1 week Start Date: 02/14/15 Stop Date: 02/14/15 Status: CompletedVyvanse 50 mg oral capsule 1 cap(s), Oral, qAM, # 30 cap(s), 0 Refill(s), Start Date: 02/20/15 16:08:38 CDT , Pharmacy: [facility] [id number] Start Date: 02/20/15 Stop Date: 03/10/15 Status: CompletedXanax Oral, TID, 0 Refill(s) Start Date: 03/15/14 Stop Date: 06/08/14 Status: CompletedZofran ODT 4 mg oral tablet, [...] 30 tab(s), 1 Refill(s), Start Date: 10:23:00 [employer], Pharmacy: [facility] [id number] Start Date: 12/16/14 Stop Date: 02/27/15 Status: Completedzolpidem 10 mg oral tablet 1 tab(s), Oral, HS, PRN for sleep, # 30 tab(s), 1 Refill(s), Start Date: 9:53:46 CDT, Pharmacy: [facility] [id number] Start Date: 02/27/15 Stop Date: 05/02/15 Status: Completedzolpidem 10 mg oral tablet 1 tab(s), Oral, HS, PRN for sleep, # 30 tab(s), 1 Refill(s), Start Date: 8:49:02 CDT, [facility] [id number] Start Date: 05/02/15 Status: Ordered Results Patient Viewable Results Most recent to oldest [Reference Range]: 1 UA Color [Yellow] Yellow (04/19/16 10:48 PM) Urine Clarity [Clear] Hazy *ABN* (04/19/16 10:48 PM) Specific [place] [1.001-1.020] 1.040 *HI* (04/19/16 10:48 PM) Urine pH [5.0-7.0] 5.5 (04/19/16 10:48 PM) Ketones [Negative] Negative (04/19/16 10:48 PM) Bilirubin [Negative] Negative (04/19/16 10:48 PM) Urine Protein [Negative] 2+ *ABN* (04/19/16 10:48 PM) Glucose [Negative] Negative (04/19/16 10:48 PM) Urine HGB [Negative] 3+ *ABN* (04/19/16 10:48 PM) Urobilinogen [< 2.0 mg/dL] 2.0 mg/dL *ABN* (04/19/16 10:48 PM) Nitrite [Negative] Negative (04/19/16 10:48 PM) Leuk Esterase [Negative] Negative (04/19/16 10:48 PM) Urine WBC [0-5] 0-5 (04/19/16 10:48 PM) Urine RBC [0-2] >50 *ABN* (04/19/16 10:48 PM) Squamous Epi [0-5] 6-10 *ABN* (04/19/16 10:48 PM) Mucus [None Seen] 4+ *NA* (04/19/16 10:48 PM) Microbiology Reports TEST:Urine Culture STATUS:Auth (Verified) BODY SITE: SOURCE:Urine, Clean Catch COLLECTED DATE/TIME:04/19/16 10:42 PMFINAL REPORT40-50,000 cfu/ml Mixed Gram positive organisms. Multiple colony types consistent with contaminated specimen. Please resubmit if clinically indicated. Immunizations Vaccine Date Refusal Reason tetanus/diphth/pertuss (Tdap) adult/adol 05/13/14 influenza virus vaccine, inactivated1 08/30/15 1Result Comment: [09/05/2015] Per Pt states she [...] lumpectomy section section9 Cholecystectomy Cholecystectomy Colonoscopy Esophagogastroduodenoscopy [id number] Lateral release of knee11 Lumpectomy of Procedure on bladder Stent [id number] Stent [id number] Tubal ligation 1auto-populated from documented surgical siep2zweq-avxvjglwu from documented surgical zubm8jseo-nzuwlwiew from documented surgical hrye1nfpi-pfsdyibrt from documented surgical oetr4aimn-fqolljfkv from documented surgical cdlv3mobo- populated from documented surgical xrok8gxst-psprsmcgn from documented surgical [id number] in [place] 310Wisdom [id number] qjud02Lnlt breast -- [id number] jwuq83sibi duct Social History No data available for this section Assessment and Plan No data available for this section
[2017-01-18] MEDS ORDERED: MORPHINE SULFATE 4 MG/ML SYRG IV ONE ×2 (15:08→16:23)
--- OUTSIDE RECORDS SUMMARY | 2017-01-18 15:08 | XMS REPORT | Summary of Care ---
:1980 Author Organization [facility] Address [address] [place] [address] [place] [address]- Care Team Providers Name Role Phone Jessy Taylor Primary Care Physician Encounter Date(s): 12/02/16 - 12/02/[address] [address]- [facility] Discharge Diagnosis: Abdominal pain Discharge Diagnosis: Complex ovarian cyst Discharge Disposition: 01 Discharged to Home or Self Care Attending Physician: CAS Caal Admitting Physician: CAS Caal Vital Signs Most recent to oldest 1 2 3 [Reference Range]: Temperature Temporal Artery 36.8 DegC [36-38 DegC] (12/02/16 6:47 PM) Temperature Temporal Artery 35.9 DegC [36.0-38.0 DegC] *LOW* (12/02/16 4:42 PM) Heart Rate Monitored [60-100 78 bpm 98 bpm 103 bpm bpm] (12/02/16 11:48 PM) (12/02/16 10:33 PM) *HI* (12/02/16 9:35 PM) Respiratory Rate [12-20 18 br/min 17 br/min 16 br/min br/min] (12/02/16 11:48 PM) (12/02/16 10:33 PM) (12/02/16 9:35 PM) SpO2 99 % 99 % 98 % (12/02/16 11:48 PM) (12/02/16 10:33 PM) (12/02/16 9:35 PM) Blood Pressure [90-130/60-90 126/73mmHg 124/75mmHg 137/72mmHg mmHg] (12/02/16 11:48 PM) (12/02/16 10:33 PM) *HI* (12/02/16 9:35 PM) Weight Estimated 136 kg (12/02/16 4:42 PM) Weight Dosing 136.00 kg1 (12/02/16 4:43 PM) 1Result Comment: This result was because the dosing weight was either not entered or it is>30 days old. This result is based off: Weight Estimated December 02, 2016 16:42:00 COFFEE GROWER by Sandy Jara RN Problem List Condition Effective Dates Status [...] of Active finger(Confirmed) Post-operative pain(Confirmed) 05/05/15 Active Pelvic inflammatory Active disease(Confirmed) PERSONALITY DISORDERS(Confirmed) Active (Confirmed) 04/18/98 - 01/23/99 Resolved (Confirmed) 05/30/04 - 01/16/05 Resolved (Confirmed) 02/15/03 - 11/22/03 Resolved Seizure disorder(Confirmed) Active Tubal ligation(Confirmed) Active patient Urinary frequency(Confirmed) Active Weakness of back(Confirmed) Active 1x3 Allergies, Adverse Reactions, Alerts Substance Reaction Severity Status ibuprofen GASTRIC ULCER, UNSPECIFIED ACUTE OR CHRONIC, WITHOUT Active MENTION OF HEMORRHAGE OR PERFORATION Zofran Hives Active Medications Adderall 10 mg oral tablet 1 tab(s), Oral, BID, take 1 every morning and 1 every noon take on empty stomach, # 60 tab(s), 0 Refill(s), Start Date: 01/03/15 15:28:02 COFFEE GROWER, Pharmacy: [facility] [id number] Start Date: 01/03/15 Stop Date: 01/10/15 Status: DiscontinuedAdderall 20 mg oral tablet 1 tab(s), Oral, BID, take 1 tab in the morning and 1 tab at noon., # 60 tab(s), 0 Refill(s), Start Date: 03/10/15 9:18:00 CDT, Pharmacy: [facility] [id number] Start Date: 03/10/15 Stop Date: 04/07/15 Status: DiscontinuedAdderall 20 mg oral tablet 1 tab(s), Oral, BID, take 1 tab in the morning and 1 tab at noon., # 60 tab(s), 0 Refill(s), Start Date: 04/07/15 9:32:24 CDT, Pharmacy: [facility] [id number] Start Date: 04/07/15 Stop Date: 05/08/15 Status: CompletedAdderall 20 mg oral tablet 1 tab(s), Oral, BID, take 1 tab in the morning and 1 tab at noon., # 60 tab(s), 0 Refill(s), Start Date: 06/06/15 9:28:56 CDT, Pharmacy: [facility] [id number] Start Date: 06/06/15 Stop Date: 08/14/15 Status: CompletedAdderall 20 mg oral tablet 1 tab(s), Oral, BID, take 1 tab in the morning and 1 tab at noon., # 60 tab(s), 0 Refill(s), Start Date: 05/08/15 11:52:49 CDT, Pharmacy: [facility] [id number] Start Date: 05/08/15 Stop Date: 06/06/15 Status: CompletedAdderall 20 mg oral tablet 1 tab(s), Oral, BID, take 1 tab qam and 1 tab at noon., # 60 tab(s), 0 Refill(s) , Start Date: 01/10/15 10:07:00 COFFEE GROWER, Pharmacy: [facility] [id number] Start Date: 01/10/15 Stop Date: 02/06/15 Status: Discontinuedalbuterol CFC free 90 mcg/inh inhalation aerosol 2 puff(s), Inhale, QID, PRN for wheezing, X 7 days, # 1 EA, 0 Refill(s), Start Date: 12/16/15 10:00:00 COFFEE GROWER, Pharmacy: [facility] Start Date: 12/16/15 Stop Date: 12/23/15 Status: CompletedAmbien 5 mg oral tablet 1 tab(s), Oral, HS, PRN for sleep, # 30 tab(s), 1 Refill(s), called to pharmacy (Rx) Start Date: 08/16/14 Stop Date: 09/14/14 Status: DiscontinuedAmbien 5 mg oral tablet 1 tab(s), Oral, HS, PRN for sleep, # 30 tab(s), 1 Refill(s), Start Date: 11:37:30 COFFEE GROWER, Pharmacy: [facility] [id number] Start Date: 10/18/14 Stop Date: 11/21/14 Status: DiscontinuedAmbien 5 mg oral tablet 1 tab(s), Oral, HS, PRN for sleep, # 30 tab(s), 3 Refill(s), Start Date: 12:01:43 COFFEE GROWER, Pharmacy: [facility] [id number] Start Date: 11/21/14 Stop Date: 12/16/14 Status: [...] tab(s), 11 Refill(s), Start Date: 11/03/14 10:16:00 COFFEE GROWER , Pharmacy: [facility] [id number] Start Date: 11/03/14 Stop Date: 11/21/14 Status: Completedamitriptyline 50 mg oral tablet 1 tab(s), Oral, HS, # 30 tab(s), 0 Refill(s), Start Date: 11/21/14 11:30:00 COFFEE GROWER Start Date: 11/21/14 Stop Date: 02/06/15 Status: Completedamoxicillin 500 mg oral capsule 1 cap(s), Oral, TID, X 10 days, # 30 cap(s), 0 Refill(s), Pharmacy: [facility] [place] Start Date: 05/07/14 Stop Date: 05/17/14 [...] tab(s), 0 Refill(s), Start Date: 10/18/14 11:37:13 COFFEE GROWER, Pharmacy: [facility] [id number] Start Date: 10/18/14 Stop Date: 11/21/14 Status: DiscontinuedAtivan 1 mg oral tablet 0.5 - 1 tab, Oral, BID, PRN for anxiety, # 60 tab(s), 3 Refill(s), Start Date: 11/21/14 12:01:39 COFFEE GROWER, Pharmacy: [facility] [id number] Start Date: 11/21/14 Stop Date: 12/16/14 Status: [...] cap(s), 0 Refill(s), Start Date: 10/15/15 17:02:00 COFFEE GROWER Start Date: 10/15/15 Stop Date: 01/21/16 Status: [...] cap(s), 0 Refill(s), Start Date: 10/05/16 15:21:00 COFFEE GROWER, [facility] [place] Start Date: 10/05/16 Stop Date: 10/23/16 Status: Completedcephalexin 500 mg oral tablet 1 tab(s), Oral, QID, # 28 tab(s), 0 Refill(s) Start Date: 05/13/14 Stop Date: 06/13/14 Status: DiscontinuedCheratussin AC 10 mg-100 mg/5 mL oral syrup 5 mL, Oral, q4hr, PRN for cough, # 120 mL, 0 Refill(s), Start Date: 12/26/14 18: 43:00 COFFEE GROWER Start Date: 12/26/14 Stop Date: 01/09/15 Status: Completedcimetidine 300 mg oral tablet 1 tab(s), Oral, TID, # 15 tab(s), 0 Refill(s) Start Date: 06/02/14 Stop Date: 06/20/14 Status: DiscontinuedCipro 500 mg oral tablet 1 tab(s), Oral, q12hr, # 2 tab(s), 0 Refill(s), Start Date: 10/26/14 13:16:00 COFFEE GROWER Start Date: 10/26/14 Stop Date: 11/03/14 Status: CompletedCipro 500 mg oral tablet 1 tab(s), Oral, q12hr, # 20 tab(s), 0 Refill(s) Start Date: 09/01/14 Stop Date: 09/27/14 Status: Discontinuedcitalopram 10 mg oral tablet 1 tab(s), Oral, Daily, # 30 tab(s), 1 Refill(s), Pharmacy: [facility] [id number] Start Date: 05/25/14 Stop Date: 06/13/14 Status: Discontinuedcitalopram 10 mg oral tablet 1 tab(s), Oral, Daily, # 30 tab(s), 0 Refill(s) Start Date: 06/13/14 Stop Date: 06/20/14 Status: DiscontinuedClaritin 10 mg oral tablet 1 tab(s), Oral, Daily, Start Date: 10/23/16 8:23:00 COFFEE GROWER Start Date: 10/23/16 Stop Date: 11/01/16 Status: CompletedcloNIDine 0.1 mg oral tablet 0.5 tab, Oral, BID, discontinue and call clinic in case of fatigue or dizziness , # 30 tab(s), 0 Refill(s), Start Date: 10/18/14 11:38:00 COFFEE GROWER, Pharmacy: [facility] [id number] Start Date: 10/18/14 Stop Date: 11/21/14 Status: CompletedDexilant 60 mg oral delayed release capsule 1 cap(s), Oral, Daily, # 30 cap(s), 0 Refill(s), Start Date: 05/01/15 6:17:00 CDT Start Date: 05/01/15 Status: Ordereddextroamphetamine 5 mg oral tablet 1 tab(s), Oral, BID, take 1 tab in the morning and 1 tab at noon., # 60 tab(s), 0 Refill(s), Start Date: 02/14/15 10:50:00 CDT, Pharmacy: [facility] [id number] Start Date: 02/14/15 Stop Date: 03/10/15 Status: Discontinueddextroamphetamine-amphetamine 20 mg oral tablet 1 tab(s), Oral, BID, # 60 tab(s), 0 Refill(s), Start Date: 02/09/15 9:33:42 CDT , Pharmacy: [facility] [id number] Start Date: 02/09/15 Stop Date: 02/14/15 Status: CompletedDiflucan 150 mg oral tablet 1 tab(s), Oral, Every other day, # 5 tab(s), 0 Refill(s), Start Date: 03/14/16 17:57:30 CDT, Pharmacy: [facility] [id number] Start Date: 03/14/16 Stop Date: 03/26/16 Status: CompletedDiflucan 150 mg oral tablet 1 tab(s), Oral, Every other day, # 5 tab(s), 0 Refill(s), Start Date: 03/13/16 18:45:00 CDT, Pharmacy: [facility] Start Date: 03/13/16 Stop Date: 03/14/16 Status: DiscontinuedDiflucan 150 mg oral tablet 1 tab(s), Oral, ONETIME, # 1 tab(s), 0 Refill(s), Start Date: 12/16/15 9:59:00 [facility], Pharmacy: [facility] Start Date: 12/16/15 Stop Date: 01/21/16 [...] Refill(s), Start Date: 05/04/15 10:05:00 CDT, Pharmacy: [facility] [id number] Start Date: 05/04/15 Stop Date: 05/09/15 Status: [...] tab(s), 0 Refill(s), Start Date: 10/29/14 18:14:00 COFFEE GROWER Start Date: 10/29/14 Stop Date: 11/21/14 Status: [...] gm, 0 Refill(s), Start Date: 12/26 18:44:00 COFFEE GROWER, Pharmacy: [facility] [id number] Start Date: 12/26/14 Stop Date: 02/06/15 Status: Completedfluconazole 150 mg oral tablet tab(s), Oral, Daily, 0 Refill(s) Start Date: 06/13/14 Stop Date: 06/13/14 Status: Discontinuedfluticasone 50 mcg/inh nasal spray 2 spray(s), Nasal, Daily, X 14 days, # 1 EA, 0 Refill(s), Start Date: 12/16/15 9 :59:00 COFFEE GROWER, Pharmacy: [facility] Start Date: 12/16/15 Stop Date: 12/30/15 Status: Completedgabapentin See Instructions, 100 mg Oral take 2 in am and 2 at noon and 1 at hs, 0 Refill (s) Start Date: 03/15/14 Stop Date: 06/20/14 Status: Discontinuedgabapentin 100 mg oral capsule 2 cap(s), Oral, HS, # 60 cap(s), 0 Refill(s), Pharmacy: [facility] [id number] Start Date: 06/20/14 Stop Date: 08/16/14 Status: Completedgabapentin 100 mg oral capsule 2 cap(s), Oral, HS, 0 Refill(s) Start Date: 06/20/14 Stop Date: 06/20/14 Status: Discontinuedgabapentin 300 mg oral capsule 1 cap(s), Oral, BID, 0 Refill(s) Start Date: 06/20/14 Stop Date: 06/20/14 Status: Discontinuedgabapentin 300 mg oral capsule 1 cap(s), Oral, BID, # 60 cap(s), 0 Refill(s), Pharmacy: [facility] [id number] Start Date: 06/20/14 Stop Date: 08/16/14 Status: CompletedHYDROcodone Oral, q12hr interval, 0 Refill(s), Start Date: 10/20/14 14:03:00 COFFEE GROWER Start Date: 10/20/14 Stop Date: 11/21/14 Status: CompletedHYDROcodone-acetaminophen 5 mg-325 mg oral tablet 2 tab(s), Oral, q4hr, PRN for pain, 0 Refill(s), Start Date: 06/23/15 10:20:00 CDT Start Date: 06/23/15 Stop Date: 10/15/15 Status: CompletedHYDROcodone-acetaminophen 5 mg-325 mg oral tablet 1 tab(s), Oral, q6hr, PRN for pain, # 30 tab(s), 0 Refill(s), Start Date: 15:24:00 COFFEE GROWER, other reason (Rx) Start Date: 12/07/14 Stop Date: 02/06/15 Status: CompletedHYDROcodone-acetaminophen 5 mg-325 mg oral tablet 2 tab(s), Oral, q6hr, X 3 days, # 15 tab(s), 0 Refill(s), Start Date: 07/29/15 23:32:00 CDT Start Date: 07/29/15 Stop Date: 08/01/15 Status: CompletedHYDROcodone-acetaminophen 5 mg-325 mg oral tablet 2 tab(s), Oral, q6hr, X 3 days, # 8 tab(s), 0 Refill(s), Start Date: 12/04/15 21 :39:00 COFFEE GROWER Start Date: 12/04/15 Stop Date: 12/07/15 Status: [...] tab(s), 0 Refill(s), Start Date: 12/02/16 20:14:00 COFFEE GROWER Start Date: 12/02/16 Stop Date: 12/05/16 Status: OrderedHYDROcodone-acetaminophen 5mg-325mg oral tablet 1 tab(s), Oral, q6hr interval, # 12 tab(s), 0 Refill(s), Start Date: 09/15/16 13 :20:00 CDT Start Date: 09/15/16 Stop Date: 09/17/16 Status: Completedhydrocodone-acetaminophen 5mg-325mg oral tablet 2 tab(s), Oral, q6hr, X 1 days, # 4 tab(s), 0 Refill(s), Start Date: 12/02/16 23 :27:00 COFFEE GROWER Start Date: 12/02/16 Stop Date: 12/03/16 Status: Orderedhydrocortisone 2.5% topical cream 1 stacy, Topical, TID, 0 Refill(s) Start Date: 06/20/14 Stop Date: 09/27/14 Status: DiscontinuedhydrOXYzine pamoate 25 mg oral capsule 1 cap(s), Oral, BID, PRN as needed for anxiety, Start Date: 06/20/16 12:21:00 CDT Start Date: 06/20/16 Stop Date: 07/30/16 Status: CompletedhydrOXYzine pamoate 50 mg oral capsule 1-2 caps, Oral, HS, PRN sleep, # 60 tab(s), 1 Refill(s), Pharmacy: [facility] [id number] Start Date: 06/29/14 Stop Date: 07/27/14 Status: DiscontinuedKeflex 500 mg oral capsule 1 cap(s), Oral, TID, # 9 cap(s), 0 Refill(s), Start Date: 05/01/15 9:36:00 CDT Start Date: 05/01/15 Stop Date: 05/12/15 Status: CompletedKeflex 500 mg oral capsule 1 cap(s), Oral, TID, # 9 cap(s), 0 Refill(s), Start Date: 05/08/15 8:56:00 CDT, [facility] [address] [id number] Start Date: 05/08/15 Stop Date: 05/09/15 Status: [...] Refill(s), Start Date: 04/07/15 9:32:00 CDT, Pharmacy: [facility] [id number] Start Date: 04/07/15 Stop Date: 05/17/15 Status: CompletedLatuda 120 mg oral tablet 1 tab(s), Oral, Daily, # 30 tab(s), 1 Refill(s), Start Date: 05/17/15 8:34:10 CDT, Pharmacy: [facility] [id number] Start Date: 05/17/15 Stop Date: 11/01/16 Status: CompletedLatuda 20 mg oral tablet 3 tab(s), Oral, qPM, # 90 tab(s), 0 Refill(s), Pharmacy: [facility] [id number] Start Date: 06/20/14 Stop Date: 06/21/14 Status: DiscontinuedLatuda 20 mg oral tablet 3 tab(s), Oral, qPM, 0 Refill(s) Start Date: 06/20/14 Stop Date: 06/20/14 Status: DiscontinuedLatuda 60 mg oral tablet 1 tab(s), Oral, Daily, # 28 tab(s), 1 Refill(s), [address]: [address] [id number], [id number], 10/16/16 Start Date: 06/29/14 Stop Date: 07/19/14 Status: CompletedLatuda 60 mg oral tablet 1 tab(s), Oral, Daily, # 30 tab(s), 1 Refill(s), Pharmacy: [facility] [id number], 10/16/16 Start Date: 08/16/14 Stop Date: 09/14/14 Status: DiscontinuedLatuda 60 mg oral tablet 1 tab(s), Oral, Daily, # 28 tab(s), 0 Refill(s), Start Date: 10/18/14 11:37:45 COFFEE GROWER, [id number], 12/17/17 Start Date: 10/18/14 Stop Date: 11/21/14 Status: DiscontinuedLatuda 60 mg oral tablet 1 tab(s), Oral, Daily, # 28 tab(s), 0 Refill(s), Pharmacy: [facility] [id number], 10/16/16 Start Date: 07/19/14 Stop Date: 07/27/14 Status: CompletedLatuda 60 mg oral tablet 1 tab(s), Oral, Daily, # 28 tab(s), 0 Refill(s), Start Date: 10/18/14 11:37:15 COFFEE GROWER, samples given to patient (Rx), 10/16/16 Start Date: 10/18/14 Stop Date: 10/24/14 Status: CompletedLatuda 60 mg oral tablet 1 tab(s), Oral, Daily, # 30 tab(s), 1 Refill(s), Start Date: 09/14/14 11:53:31 CDT, Pharmacy: [facility] [id number], 10/16/16 Start Date: 09/14/14 Stop Date: 10/18/14 Status: CompletedLatuda 60 mg oral tablet 1 tab(s), Oral, Daily, # 28 tab(s), 0 Refill(s), samples given to patient (Rx), [id number], 10/16/16 Start Date: 06/21/14 Stop Date: 06/29/14 Status: CompletedLatuda 60 mg oral tablet 1 tab(s), Oral, Daily, # 30 tab(s), 1 Refill(s), Pharmacy: [facility] [id number], 10/16/16 Start Date: 07/27/14 Stop Date: 08/16/14 Status: DiscontinuedLatuda 80 mg oral tablet 1 tab(s), Oral, Daily, with food, # 30 tab(s), 1 Refill(s), Start Date: 8:42:36 CDT, Pharmacy: [facility] [id number] Start Date: 03/20/15 Stop Date: 04/07/15 Status: DiscontinuedLatuda 80 mg oral tablet 1 tab(s), Oral, Daily, with food, # 30 tab(s), 0 Refill(s), Start Date: 16:51:00 COFFEE GROWER Start Date: 11/01/16 Status: OrderedLatuda 80 mg oral tablet 1 tab(s), Oral, Daily, with food, # 30 tab(s), 1 Refill(s), Start Date: 17:40:04 COFFEE GROWER, Pharmacy: [facility] [id number] Start Date: 01/12/15 Stop Date: 03/20/15 Status: CompletedLatuda 80 mg oral tablet 1 tab(s), Oral, Daily, with food, # 30 tab(s), 1 Refill(s), Start Date: 12:02:00 COFFEE GROWER, Pharmacy: [facility] [id number] Start Date: 11/21/14 Stop Date: 01/12/15 Status: CompletedLevaquin 500 mg oral tablet 1 tab(s), Oral, Daily, X 10 days, # 10 tab(s), 0 Refill(s), Start Date: 9:59:00 COFFEE GROWER, Pharmacy: [facility] Start Date: 12/16/15 Stop Date: 12/26/15 Status: CompletedLidoderm 5% topical film Topical, HS, 0 Refill(s) Start Date: 06/13/14 Stop Date: 06/20/14 Status: Discontinuedlisdexamfetamine 30 mg oral capsule 1 cap(s), Oral, qAM, # 30 cap(s), 0 Refill(s), Start Date: 12/16/14 10:24:00 COFFEE GROWER , Pharmacy: [facility] [id number] Start Date: 12/16/14 Stop Date: 12/30/14 Status: Discontinuedlisdexamfetamine 50 mg oral capsule 1 cap(s), Oral, qAM, # 30 cap(s), 0 Refill(s), Start Date: 12/30/14 11:56:00 COFFEE GROWER , [facility] [address] [id number] Start Date: 12/30/14 Stop Date: 01/10/15 Status: DiscontinuedLoestrin Fe 1/20 oral tablet 1 tab(s), Oral, Daily, # [...] mL, Subcutaneous, Daily, Start Date: 01/21/16 15:05:00 COFFEE GROWER Start Date: 01/21/16 Stop Date: 05/22/16 Status: CompletedLutera 100 mcg-20 mcg oral tablet 1 tab(s), Oral, Daily, 2 tabs for 3 days, then 1 tab daily. Use continuously by skipping the last 7 pills and starting the next pack., # 56 tab(s), 0 Refill(s) , Start Date: 08/11/15 18:56:00 CDT, Pharmacy: [facility] [id number] Start Date: 08/11/15 Stop Date: 10/15/15 Status: CompletedLuvox Oral, 0 Refill(s) Start Date: 03/15/14 Stop Date: 05/25/14 Status: Discontinuedmirtazapine 15 mg oral tablet 0.5 - 1 tab, Oral, HS, # 30 tab(s), 1 Refill(s), Pharmacy: [facility] [id number] Start Date: 07/27/14 Stop Date: 08/16/14 Status: [...] 24 tab(s), 0 Refill(s), Start Date: 18:24:00 COFFEE GROWER Start Date: 11/28/15 Stop Date: 12/03/15 Status: CompletedNorco 5 mg-325 mg oral tablet 1 tab(s), Oral, q4hr, PRN for pain, X 1 days, # 6 tab(s), 0 Refill(s), Start Date: 10/11/16 14:29:00 COFFEE GROWER Start Date: 10/11/16 Stop Date: 10/12/16 Status: [...] tab(s), 0 Refill(s), Start Date: 11/21/16 13:42:00 COFFEE GROWER Start Date: 11/21/16 Stop Date: 11/28/16 Status: [...] Refill(s), Start Date: 01/23/15 13:06:00 CDT, Pharmacy: [facility] [id number] Start Date: 01/23/15 Stop Date: 03/10/15 Status: CompletedoxyCODONE-acetaminophen 5 mg-325 mg oral tablet 1 tab(s), Oral, q4hr, PRN for pain, Dispense, # 2 tab(s), 0 Refill(s), Start Date: 01/20/16 2:59:00 COFFEE GROWER Start Date: 01/20/16 Stop Date: 01/21/16 Status: CompletedoxyCODONE-acetaminophen 5 mg-325 mg oral tablet 1 tab(s), Oral, q4hr, PRN for pain, # 10 tab(s), 0 Refill(s), Start Date: 2:58:00 COFFEE GROWER Start Date: 01/20/16 Stop Date: 01/22/16 Status: [...] tab(s), 0 Refill(s), Start Date: 12/12/14 15:48:00 COFFEE GROWER Start Date: 12/12/14 Stop Date: 12/15/14 Status: [...] tab(s), 0 Refill(s), Start Date: 09/30/15 12:10:00 COFFEE GROWER Start Date: 09/30/15 Stop Date: 10/25/15 Status: CompletedPhenergan 25 mg oral tablet 1 tab(s), Oral, q4hr, PRN for nausea/vomiting, # 2 tab(s), 0 Refill(s), Start Date: 08/04/15 0:26:00 CDT Start Date: 08/04/15 Stop Date: 10/15/15 Status: CompletedPhenergan 25 mg oral tablet 1 tab(s), Oral, q4hr, PRN for nausea/vomiting, # 30 tab(s), 0 Refill(s), Start Date: 08/04/15 0:25:00 CDT Start Date: 08/04/15 Stop Date: 5/10/16 Status: CompletedPhenergan 25 mg oral tablet 1 [...] CompletedPhenergan 25 mg rectal suppository 1 supp, [place], q6hr interval, # 12 supp, 0 Refill(s), Start Date: 01/28/16 4:33:00 CDT Start Date: 01/28/16 Stop Date: 05/22/16 Status: CompletedPhenergan 50 mg rectal suppository 1 supp, [place], q6hr interval, # 12 supp, 0 Refill(s), Start Date: 11/01/16 20:08: 00 COFFEE GROWER Start Date: 11/01/16 Stop Date: 11/21/16 Status: [...] 0 Refill(s) , Start Date: 10/23/16 11:52:00 COFFEE GROWER Start Date: 10/23/16 Stop Date: 11/01/16 Status: [...] Discontinuedpromethazine 25 mg rectal suppository 1 supp, [place], q4hr, PRN for nausea/vomiting, # 18 supp, [...] # 90 tab(s), 1 Refill( s), Pharmacy: [facility] [id number] Start Date: 05/25/14 Stop Date: 06/13/14 Status: DiscontinuedSeptra DS 800 mg-160 mg oral tablet 1 tab(s), Oral, BID, X 10 days, # 20 tab(s), 0 Refill(s), Start Date: 12/26/14 18:44:00 COFFEE GROWER, Pharmacy: [facility] [id number] Start Date: 12/26/14 Stop Date: 01/05/15 Status: CompletedSEROquel 400 mg, Oral, HS, 0 Refill(s) Start Date: 03/15/14 Stop Date: 06/20/14 Status: DiscontinuedSEROquel 100 mg oral tablet 1 tab(s), Oral, HS, # 30 tab(s), 1 Refill(s), Pharmacy: [facility] [id number] Start Date: 06/29/14 Stop Date: 07/27/14 Status: DiscontinuedSEROquel 200 mg oral tablet 1 tab(s), Oral, HS, # 30 tab(s), 0 Refill(s), [facility] [address] [id number] Start Date: 06/20/14 Stop Date: 06/29/14 Status: [...] tab(s), 3 Refill(s), Start Date: 11/21/14 12:01:00 COFFEE GROWER, Pharmacy: [facility] [id number] Start Date: 11/21/14 Stop Date: 12/16/14 Status: CompletedTessalon Perles 100 mg oral capsule 1 cap(s), Oral, TID, # 21 cap(s), 0 Refill(s), Start Date: 10/05/16 15:22:00 COFFEE GROWER , [facility] [place] Start Date: 10/05/16 Stop Date: 10/23/16 [...] Refill(s), Start Date: 07/24 12:21:00 CDT, Pharmacy: [facility] Start Date: 07/24/16 Stop Date: 07/30/16 Status: CompletedtraMADol 50 mg oral tablet 1 tab(s), Oral, q6hr, PRN for pain, # 30 tab(s), 0 Refill(s), Start Date: 12:10:00 COFFEE GROWER Start Date: 09/30/15 Stop Date: 11/28/15 Status: CompletedtraMADol 50 mg oral tablet 1 tab(s), Oral, q4hr, PRN for pain, # 16 tab(s), 0 Refill(s), Start Date: 20:08:00 COFFEE GROWER Start Date: 11/01/16 Stop Date: 11/21/16 Status: CompletedtraMADol 50 mg oral tablet 1 tab(s), Oral, q4hr, PRN for pain, # 20 tab(s), 0 Refill(s) Start Date: 07/10/14 Stop Date: 07/27/14 Status: CompletedtraMADol 50 mg oral tablet 1 tab(s), Oral, q4hr, PRN for pain, # 24 tab(s), 0 Refill(s), Start Date: 16:34:00 COFFEE GROWER Start Date: 01/21/15 Stop Date: 03/10/15 Status: CompletedtraMADol 50 mg oral tablet 2 tab(s), Oral, q12hr, PRN for pain, # 120 tab(s), 0 Refill(s), Pharmacy: [facility] [id number] Start Date: 06/20/14 Stop Date: 08/16/14 Status: CompletedtraMADol 50 mg oral tablet 2 tab(s), Oral, q4hr, PRN for pain, 1-2 TABS EVERY 4-6 HOURS PRN PAIN, # 90 tab( s), 0 Refill(s), Start Date: 12/07/14 15:23:15 COFFEE GROWER, other reason (Rx) Start Date: 12/07/14 Stop Date: 12/16/14 Status: CompletedtraMADol 50 mg oral tablet 2 tab(s), Oral, q4hr, PRN for pain, # 12 tab(s), 0 Refill(s), Start Date: 17:51:00 COFFEE GROWER Start Date: 12/06/14 Stop Date: 12/07/14 Status: [...] tab(s), 0 Refill(s), Start Date: 10/23 11:51:00 COFFEE GROWER Start Date: 10/23/16 Stop Date: 11/01/16 Status: CompletedVESIcare 5 mg oral tablet 1 tab(s), Oral, Daily, # 28 tab(s), 0 Refill(s), Start Date: 12/20/14 11:16:00 COFFEE GROWER, samples given to patient (Rx), [id number], 09/17/16 Start Date: 12/20/14 Stop Date: 02/06/15 Status: CompletedVESIcare 5 mg oral tablet 1 tab(s), Oral, Daily, # 30 tab(s), 11 Refill(s), Start Date: 12/20/14 11:12:00 COFFEE GROWER, Pharmacy: [facility] [id number] Start Date: 12/20/14 Stop Date: 02/06/15 Status: CompletedVESIcare 5 mg oral tablet 1 tab(s), Oral, Daily, # 30 tab(s), 0 Refill(s), Start Date: 11/22/14 10:40:00 COFFEE GROWER, [id number], 11/16/16 Start Date: 11/22/14 Stop Date: 12/20/14 [...] tab(s), 0 Refill(s), Start Date: 10/26/14 13:16:00 COFFEE GROWER Start Date: 10/26/14 Stop Date: 10/31/14 Status: [...] qAM, 0 Refill(s), Start Date: 12/20/14 10:54:00 COFFEE GROWER Start Date: 12/20/14 Stop Date: 12/30/14 Status: DiscontinuedVyvanse 30 mg oral capsule See Instructions, 1 cap(s) Oral qAM for 1 week, then switch to 50mg cap, # 7 cap (s), 0 Refill(s), Start Date: 02/06/15 16:12:00 CDT, Pharmacy: [facility] [id number] Start Date: 02/06/15 Stop Date: 02/14/15 Status: CompletedVyvanse 50 mg oral capsule 1 cap(s), Oral, qAM, JESSY TAYLOR, 0 Refill(s), Start Date: 08/14/15 10:35:00 CDT Start Date: 08/14/15 Status: OrderedVyvanse 50 mg oral capsule 1 cap(s), Oral, qAM, start taking after you have taken 30mg for 1 week, # 30 cap (s), 0 Refill(s), Start Date: 02/14/15 8:00:00 CDT, Pharmacy: [facility] [id number] Start Date: 02/14/15 Stop Date: 02/14/15 Status: CompletedVyvanse 50 mg oral capsule 1 cap(s), Oral, qAM, # 30 cap(s), 0 Refill(s), Start Date: 02/20/15 16:08:38 CDT , Pharmacy: [facility] [id number] Start Date: 02/20/15 Stop Date: 03/10/15 Status: [...] 30 tab(s), 1 Refill(s), Start Date: 10:23:00 COFFEE GROWER, Pharmacy: [facility] [id number] Start Date: 12/16/14 Stop Date: 02/27/15 Status: Completedzolpidem 10 mg oral tablet 1 tab(s), Oral, HS, PRN for sleep, # 30 tab(s), 1 Refill(s), Start Date: 9:53:46 CDT, Pharmacy: [facility] [id number] Start Date: 02/27/15 Stop Date: 05/02/15 Status: Completedzolpidem 10 mg oral tablet 1 tab(s), Oral, HS, PRN for sleep, # 30 tab(s), 1 Refill(s), Start Date: 8:49:02 CDT, Pharmacy: [facility] [id number] Start Date: 05/02/15 Stop Date: 05/27/16 Status: Completedzolpidem 5 mg oral tablet 1 tab(s), Oral, HS, PRN for sleep, Start Date: 05/22/16 17:36:00 CDT Start Date: 05/22/16 Stop Date: 09/15/16 Status: Completedzolpidem 5 mg oral tablet 1 tab(s), Oral, HS, PRN for sleep, 0 Refill(s), Start Date: 10/04/16 8:47:00 [employer] [employer] Start Date: 10/04/16 Stop Date: 11/01/16 Status: Completed Results Patient Viewable Results Most recent to oldest [Reference Range]: 1 2 WBC [4.8-10.8 thou/mm3] 7.1 thou/mm3 (12/02/16 5:15 PM) RBC [4.20-5.40 Mil/mm3] 4.63 Mil/mm3 (12/02/16 5:15 PM) Hgb [12.0-16.0 g/dL] 12.4 g/dL (12/02/16 5:15 PM) Hct [37.0-47.0 %] 38.6 % (12/02/16 5:15 PM) MCV [80.0-94.0 fL] 83.4 fL (12/02/16 5:15 PM) MCH [25.0-38.0 pg/cell] 26.8 pg/cell (12/02/16 5:15 PM) MCHC [31.0-37.0 g/dL] 32.1 g/dL (12/02/16 5:15 PM) RDW [1.0-48.0 fL] 43.9 fL (12/02/16 5:15 PM) Platelet [130-400 thou/mm3] 206 thou/mm3 (12/02/16 5:15 PM) Neutrophils % Auto [50.0-75.0 %] 51.0 % (12/02/16 5:15 PM) Immature Granulocyte Auto [0.1-2.0 %] 0.4 % (12/02/16 5:15 PM) Lymphocytes % Auto [15.0-41.0 %] 38.5 % (12/02/16 5:15 PM) Monocytes % Auto [2.0-10.0 %] 8.2 % (12/02/16 5:15 PM) Eosinophils % Auto [0.0-6.0 %] 1.6 % (12/02/16 5:15 PM) Basophil % Auto [0.0-1.0 %] 0.3 % (12/02/16 5:15 PM) Neutrophils Absolute [1.5-5.9 thou/mm3] 3.6 thou/mm3 (12/02/16 5:15 PM) Immature Gran Absolute [0.01-0.03 thou/mm3] 0.03 thou/mm3 (12/02/16 5:15 PM) Lymphocytes Absolute [1.5-4.0 thou/mm3] 2.7 thou/mm3 (12/02/16 5:15 PM) Monocytes Absolute [0.0-0.9 thou/mm3] 0.6 thou/mm3 (12/02/16 5:15 PM) Eosinophil Absolute [0.0-0.7 thou/mm3] 0.1 thou/mm3 (12/02/16 5:15 PM) Basophil Absolute [0.0-0.2 thou/mm3] 0.0 thou/mm3 (12/02/16 5:15 PM) Sodium Lvl [135-144 mEq/L] 138 mEq/L (12/02/16 5:15 PM) Potassium Lvl [3.3-4.8 mEq/L] 4.1 mEq/L (12/02/16 5:15 PM) Chloride Lvl [98-107 mEq/L] 100 mEq/L (12/02/16 5:15 PM) Bicarbonate Lvl [22-30 mmol/L] 25 mmol/L (12/02/16 5:15 PM) Anion Gap [10.0-20.0] 17.1 (12/02/16 5:15 PM) Glucose Lvl [70-108 mg/dL] 124 mg/dL *HI* (12/02/16 5:15 PM) BUN [7-21 mg/dL] 8 mg/dL (12/02/16 5:15 PM) Creatinine Lvl [0.50-1.20 mg/dL] 0.77 mg/dL (12/02/16 5:15 PM) BUN/Creat Ratio 10.4 *NA* (12/02/16 5:15 PM) eGFR AA [>=60] >60 (12/02/16 5:15 PM) eGFR GIRISH [>=60] >60 (12/02/16 5:15 PM) Calcium Lvl [8.6-10.2 mg/dL] 8.6 mg/dL (12/02/16 5:15 PM) Total Protein [6.4-8.3 g/dL] 7.0 g/dL (12/02/16 5:15 PM) Albumin Lvl [3.5-5.2 g/dL] 3.8 g/dL (12/02/16 5:15 PM) Globulin 3.2 *NA* (12/02/16 5:15 PM) A/G Ratio [0.9-1.8] 1.2 (12/02/16 5:15 PM) Bilirubin Total [0.1-1.0 mg/dL] 0.1 mg/dL (12/02/16 5:15 PM) Alkaline Phosphatase [39-129 unit/L] 93 unit/L (12/02/16 5:15 PM) AST [0-39 unit/L] 20 unit/L (12/02/16 5:15 PM) ALT [0-40 unit/L] 20 unit/L (12/02/16 5:15 PM) C Reactive Protein [0.0-0.4 mg/dL] 2.9 mg/dL *HI* (12/02/16 5:15 PM) Estimated Creatinine Clearance 140.17 mL/min 166.05 mL/min (12/02/16 6:22 PM) (12/02/16 4:43 PM) UA Color Yellow *NA* (12/02/16 4:51 PM) Urine Clarity Clear *NA* (12/02/16 4:51 PM) Specific [place] [1.000-1.060] 1.009 (12/02/16 4:51 PM) Urine pH [5-8] 6 (12/02/16 4:51 PM) Ketones Negative (12/02/16 4:51 PM) Bilirubin [Negative] Negative (12/02/16 4:51 PM) Urine Protein [Negative] Negative (12/02/16 4:51 PM) Glucose [Negative] Negative (12/02/16 4:51 PM) Urine HGB [Negative] Negative (12/02/16 4:51 PM) Urobilinogen <2.0 *NA* (12/02/16 4:51 PM) Nitrite [Negative] Negative (12/02/16 4:51 PM) Leuk Esterase [Negative] Negative (12/02/16 4:51 PM) UA Ascorbic Acid [Negative] Negative (12/02/16 4:51 PM) Urine WBC [0-5] 0-5 (12/02/16 4:51 PM) Urine RBC [0-2] 0-2 (12/02/16 4:51 PM) Squamous Epi 0-5 (12/02/16 4:51 PM) Bacteria Trace *ABN* (12/02/16 4:51 PM) Mucus Trace (12/02/16 4:51 PM) Immunizations Given and Recorded Vaccine Date Status Refusal Reason tetanus/diphth/pertuss (Tdap) adult/adol 05/13/14 Given influenza virus vaccine, inactivated1 08/30/15 Recorded 1Result Comment: [09/05/2015] Per Pt states she revieved flu vaccine thru [facility]. Procedures Procedure Date Related Diagnosis Body Site Diagnostic Laparoscopy1 08/16/15 Arthrotomy Knee2 06/27/15 Insertion Interstim Generator Stage 23 05/09/15 Insertion Interstim Generator Stage 24 05/08/15 Insertion Interstim Electrode Stage 1 05/01/15 NonParalytic5 UDS - Urodynamics 03/20/15 Cystoscopy - SN6 10/26/14 Colonoscopy7 07/25/14 Tubal ligation8 01/16/05 Appendectomy Appendectomy Breast lumpectomy section section9 Cholecystectomy Cholecystectomy Colonoscopy Esophagogastroduodenoscopy [id number] Lateral release of knee11 Lumpectomy of [id number] Procedure on bladder Stent Stent [id number] Tubal ligation 1auto-populated from documented surgical [id number] from documented surgical [id number] from documented surgical [id number]-svlclezzl from documented surgical [id number]-ksvbbiowk from documented surgical grmo3xzuu- populated from documented surgical [id number] from documented surgical rccr2[place]mks in [place] 310Wisdom nisho20Eoegq adrx78Czeb breast -- Hlpskr18sogj bnue75qxxk duct Social History No data available for this section Assessment and Plan No data available for this section
[2017-01-18] MEDS ORDERED: NORMAL SALINE 1,000 ML IV ONE (15:09)
--- OUTSIDE RECORDS SUMMARY | 2017-01-18 15:09 | XMS REPORT | Summary of Care ---
:1980 Author Organization [facility] Address [address] [place] [id number] Care Team Providers Name Role Phone Jessy Taylor Primary Care Physician Encounter Date(s): 01/10/17 - 01/10/17 [facility] [address] [place] [address]- [facility] Discharge Diagnosis: Chronic pelvic pain in female Discharge Disposition: 01 Discharged to Home or Self Care Attending Physician: CAS Caal Admitting Physician: Unknown Physician Vital Signs Most recent to oldest [Reference Range]: 1 2 Temperature Temporal Artery [36-38 DegC] 37 DegC (01/10/17 5:30 PM) Temperature Temporal Artery [36.0-38.0 DegC] 36.7 DegC (01/10/17 4:19 PM) Heart Rate Monitored [60-100 bpm] 97 bpm 100 bpm (01/10/17 5:30 PM) (01/10/17 4:19 PM) Respiratory Rate [12-20 br/min] 18 br/min 16 br/min (01/10/17 5:30 PM) (01/10/17 4:19 PM) SpO2 [90-100 %] 100 % 100 % (01/10/17 5:30 PM) (01/10/17 4:19 PM) Blood Pressure [90-130/60-90 mmHg] 157/97mmHg 154/111mmHg *HI* *HI* (01/10/17 5:30 PM) (01/10/17 4:19 PM) Most recent to oldest [Reference Range]: 1 2 Weight Dosing 138.20 kg1 (01/10/17 4:26 PM) Weight Measured 138.2 kg (01/10/17 4:19 PM) 1Result Comment: This result was because the dosing weight was either not entered or it is>30 days old. This result is based off: Weight Measured January 10, 2017 16:19:00 [employer]ODUCTION MACHINE [employer]ENDER by Cheli Varghese RN Problem List Condition [...] tab(s), 0 Refill(s), Start Date: 01/03/15 15:28:02 PRODUCTION MACHINE [employer]ENDER, Pharmacy: [facility] [id number] Special Instructions: take 1 every morning and 1 every noon take on empty stomach Start Date: 01/03/15 Stop Date: 01/10/15 Status: DiscontinuedAdderall 20 mg oral tablet 1 tab(s), Oral, BID, take 1 tab in the morning and 1 tab at noon., # 60 tab(s), 0 Refill(s), Start Date: 03/10/15 9:18:00 CDT, Pharmacy: [facility] [id number] Special Instructions: take 1 tab in the morning and 1 tab at noon. Start Date: 03/10/15 Stop Date: 04/07/15 Status: DiscontinuedAdderall 20 mg oral tablet 1 tab(s), Oral, BID, take 1 tab in the morning and 1 tab at noon., # 60 tab(s), 0 Refill(s), Start Date: 04/07/15 9:32:24 CDT, Pharmacy: [facility] [id number] Special Instructions: take 1 tab in the morning and 1 tab at noon. Start Date: 04/07/15 Stop Date: 05/08/15 Status: CompletedAdderall 20 mg oral tablet 1 tab(s), Oral, BID, take 1 tab in the morning and 1 tab at noon., # 60 tab(s), 0 Refill(s), Start Date: 06/06/15 9:28:56 CDT, Pharmacy: [facility] [id number] Special Instructions: take 1 tab in the morning and 1 tab at noon. Start Date: 06/06/15 Stop Date: 08/14/15 Status: CompletedAdderall 20 mg oral tablet 1 tab(s), Oral, BID, take 1 tab in the morning and 1 tab at noon., # 60 tab(s), 0 Refill(s), Start Date: 05/08/15 11:52:49 CDT, Pharmacy: [facility] [id number] Special Instructions: take 1 tab in the morning and 1 tab at noon. Start Date: 05/08/15 Stop Date: 06/06/15 Status: CompletedAdderall 20 mg oral tablet 1 tab(s), Oral, BID, take 1 tab qam and 1 tab at noon., # 60 tab(s), 0 Refill(s) , Start Date: 01/10/15 10:07:00 [employer]ODUCTION MACHINE [employer]ENDER, Pharmacy: [facility] [id number] Special Instructions: take 1 tab qam and 1 tab at noon. Start Date: 01/10/15 Stop Date: 02/06/15 Status: Discontinuedalbuterol CFC free 90 mcg/inh inhalation aerosol 2 puff(s), Inhale, QID, PRN for wheezing, X 7 days, # 1 EA, 0 Refill(s), Start Date: 12/16/15 10:00:00 PRODUCTION MACHINE [employer]ENDER, Pharmacy: [facility] Start Date: 12/16/15 Stop Date: 12/23/15 Status: CompletedAmbien 5 mg oral tablet 1 tab(s), Oral, HS, PRN for sleep, # 30 tab(s), 1 Refill(s), called to pharmacy (Rx) Start Date: 08/16/14 Stop Date: 09/14/14 Status: DiscontinuedAmbien 5 mg oral tablet 1 tab(s), Oral, HS, PRN for sleep, # 30 tab(s), 1 Refill(s), Start Date: 11:37:30 PRODUCTION MACHINE [employer]ENDER, Pharmacy: [facility] [id number] Start Date: 10/18/14 Stop Date: 11/21/14 Status: DiscontinuedAmbien 5 mg oral tablet 1 tab(s), Oral, HS, PRN for sleep, # 30 tab(s), 3 Refill(s), Start Date: 12:01:43 PRODUCTION MACHINE TENDER, Pharmacy: [facility] [id number] Start Date: 11/21/14 Stop Date: 12/16/14 Status: [...] tab(s), 11 Refill(s), Start Date: 11/03/14 10:16:00 PRODUCTION MACHINE TENDER , Pharmacy: [facility] [id number] Start Date: 11/03/14 Stop Date: 11/21/14 Status: Completedamitriptyline 50 mg oral tablet 1 tab(s), Oral, HS, # 30 tab(s), 0 Refill(s), Start Date: 11/21/14 11:30:00 PRODUCTION MACHINE [employer]ENDER Start Date: 11/21/14 Stop Date: 02/06/15 Status: Completedamoxicillin 500 mg oral capsule 1 cap(s), Oral, TID, X 10 days, # 30 cap(s), 0 Refill(s), [place] Start Date: 05/07/14 Stop Date: 05/17/14 [...] tab(s), 0 Refill(s), Start Date: 10/18/14 11:37:13 PRODUCTION MACHINE TENDER, Pharmacy: [facility] [id number] Start Date: 10/18/14 Stop Date: 11/21/14 Status: DiscontinuedAtivan 1 mg oral tablet 0.5 - 1 tab, Oral, BID, PRN for anxiety, # 60 tab(s), 3 Refill(s), Start Date: 11/21/14 12:01:39 PRODUCTION MACHINE TENDER, Pharmacy: [facility] [id number] Start Date: 11/21/14 Stop Date: 12/16/14 Status: [...] cap(s), 0 Refill(s), Start Date: 10/15/15 17:02:00 PRODUCTION MACHINE [employer]ENDER Start Date: 10/15/15 Stop Date: 01/21/16 Status: [...] cap(s), 0 Refill(s), Start Date: 10/05/16 15:21:00 PRODUCTION MACHINE TENDER, [facility] [facility] [place] Start Date: 10/05/16 Stop Date: 10/23/16 Status: Completedcephalexin 500 mg oral tablet 1 tab(s), Oral, QID, # 28 tab(s), 0 Refill(s) Start Date: 05/13/14 Stop Date: 06/13/14 Status: DiscontinuedCheratussin AC 10 mg-100 mg/5 mL oral syrup 5 mL, Oral, q4hr, PRN for cough, # 120 mL, 0 Refill(s), Start Date: 12/26/14 18: 43:00 PRODUCTION MACHINE [employer]ENDER Start Date: 12/26/14 Stop Date: 01/09/15 Status: Completedcimetidine 300 mg oral tablet 1 tab(s), Oral, TID, # 15 tab(s), 0 Refill(s) Start Date: 06/02/14 Stop Date: 06/20/14 Status: DiscontinuedCipro 500 mg oral tablet 1 tab(s), Oral, q12hr, # 2 tab(s), 0 Refill(s), Start Date: 10/26/14 13:16:00 PRODUCTION MACHINE [employer]ENDER Start Date: 10/26/14 Stop Date: 11/03/14 Status: CompletedCipro 500 mg oral tablet 1 tab(s), Oral, q12hr, # 20 tab(s), 0 Refill(s) Start Date: 09/01/14 Stop Date: 09/27/14 Status: Discontinuedcitalopram 10 mg oral tablet 1 tab(s), Oral, Daily, # 30 tab(s), 1 Refill(s), Pharmacy: [facility] [id number] Start Date: 05/25/14 Stop Date: 06/13/14 Status: Discontinuedcitalopram 10 mg oral tablet 1 tab(s), Oral, Daily, # 30 tab(s), 0 Refill(s) Start Date: 06/13/14 Stop Date: 06/20/14 Status: DiscontinuedClaritin 10 mg oral tablet 1 tab(s), Oral, Daily, Start Date: 10/23/16 8:23:00 PRODUCTION MACHINE TENDER Start Date: 10/23/16 Stop Date: 11/01/16 Status: CompletedcloNIDine 0.1 mg oral tablet 0.5 tab, Oral, BID, discontinue and call clinic in case of fatigue or dizziness , # 30 tab(s), 0 Refill(s), Start Date: 10/18/14 11:38:00 PRODUCTION MACHINE TENDER, Pharmacy: [facility] [id number] Special Instructions: discontinue and call clinic in [...] Refill(s), Start Date: 02/14/15 10:50:00 CDT, Pharmacy: [facility] [id number] Special Instructions: take 1 tab in the morning and 1 tab at noon. Start Date: 02/14/15 Stop Date: 03/10/15 Status: Discontinueddextroamphetamine-amphetamine 20 mg oral tablet 1 tab(s), Oral, BID, # 60 tab(s), 0 Refill(s), Start Date: 02/09/15 9:33:42 CDT , Pharmacy: [facility] [id number] Start Date: 02/09/15 Stop Date: 02/14/15 Status: CompletedDiflucan 150 mg oral tablet 1 tab(s), Oral, Every other day, # 5 tab(s), 0 Refill(s), Start Date: 03/14/16 17:57:30 CDT, Pharmacy: [facility] [id number] Start Date: 03/14/16 Stop Date: 03/26/16 Status: CompletedDiflucan 150 mg oral tablet 1 tab(s), Oral, Every other day, # 5 tab(s), 0 Refill(s), Start Date: 03/13/16 18:45:00 CDT, Pharmacy: [facility] Start Date: 03/13/16 Stop Date: 03/14/16 Status: DiscontinuedDiflucan 150 mg oral tablet 1 tab(s), Oral, ONETIME, # 1 tab(s), 0 Refill(s), Start Date: 12/16/15 9:59:00 PRODUCTION MACHINE TENDER, Pharmacy: [facility] Start Date: 12/16/15 Stop Date: [...] Refill(s), Start Date: 05/04/15 10:05:00 CDT, Pharmacy: [facility] [id number] Start Date: 05/04/15 Stop Date: 05/09/15 Status: [...] tab(s), 0 Refill(s), Start Date: 10/29/14 18:14:00 PRODUCTION MACHINE TENDER Start Date: 10/29/14 Stop Date: 11/21/14 Status: [...] gm, 0 Refill(s), Start Date: 12/26 18:44:00 PRODUCTION MACHINE TENDER, Pharmacy: [facility] [id number] Special Instructions: in each nostril Start Date: 12/26/14 Stop Date: 02/06/15 Status: Completedfluconazole 150 mg oral tablet tab(s), Oral, Daily, 0 Refill(s) Start Date: 06/13/14 Stop Date: 06/13/14 Status: Discontinuedfluticasone 50 mcg/inh nasal spray 2 spray(s), Nasal, Daily, X 14 days, # 1 EA, 0 Refill(s), Start Date: 12/16/15 9 :59:00 PRODUCTION MACHINE TENDER, [facility] Start Date: 12/16/15 Stop Date: 12/30/15 [...] HS, # 60 cap(s), 0 Refill(s), Pharmacy: [facility] [id number] Start Date: 06/20/14 Stop Date: 08/16/14 Status: Completedgabapentin 100 mg oral capsule 2 cap(s), Oral, HS, 0 Refill(s) Start Date: 06/20/14 Stop Date: 06/20/14 Status: Discontinuedgabapentin 300 mg oral capsule 1 cap(s), Oral, BID, 0 Refill(s) Start Date: 06/20/14 Stop Date: 06/20/14 Status: Discontinuedgabapentin 300 mg oral capsule 1 cap(s), Oral, BID, # 60 cap(s), 0 Refill(s), Pharmacy: [facility] [id number] Start Date: 06/20/14 Stop Date: 08/16/14 Status: CompletedHYDROcodone Oral, q12hr interval, 0 Refill(s), Start Date: 10/20/14 14:03:00 PRODUCTION MACHINE TENDER Start Date: 10/20/14 Stop Date: 11/21/14 Status: CompletedHYDROcodone-acetaminophen 5 mg-325 mg oral tablet 2 tab(s), Oral, q4hr, PRN for pain, 0 Refill(s), Start Date: 06/23/15 10:20:00 CDT Start Date: 06/23/15 Stop Date: 10/15/15 Status: CompletedHYDROcodone-acetaminophen 5 mg-325 mg oral tablet 1 tab(s), Oral, q6hr, PRN for pain, # 30 tab(s), 0 Refill(s), Start Date: 15:24:00 PRODUCTION MACHINE TENDER, other reason (Rx) Start Date: 12/07/14 Stop Date: 02/06/15 Status: CompletedHYDROcodone-acetaminophen 5 mg-325 mg oral tablet 2 tab(s), Oral, q6hr, X 3 days, # 15 tab(s), 0 Refill(s), Start Date: 07/29/15 23:32:00 CDT Start Date: 07/29/15 Stop Date: 08/01/15 Status: CompletedHYDROcodone-acetaminophen 5 mg-325 mg oral tablet 2 tab(s), Oral, q6hr, X 3 days, # 8 tab(s), 0 Refill(s), Start Date: 12/04/15 21 :39:00 PRODUCTION MACHINE TENDER Start Date: 12/04/15 Stop Date: 12/07/15 Status: [...] tab(s), 0 Refill(s), Start Date: 12/02/16 20:14:00 PRODUCTION MACHINE TENDER Start Date: 12/02/16 Stop Date: 12/05/16 Status: CompletedHYDROcodone-acetaminophen 5mg-325mg oral tablet 1 tab(s), Oral, q6hr interval, # 12 tab(s), 0 Refill(s), Start Date: 09/15/16 13 :20:00 CDT Start Date: 09/15/16 Stop Date: 09/17/16 Status: Completedhydrocodone-acetaminophen 5mg-325mg oral tablet 2 tab(s), Oral, q6hr, X 1 days, # 4 tab(s), 0 Refill(s), Start Date: 12/02/16 23 :27:00 PRODUCTION MACHINE TENDER Start Date: 12/02/16 Stop Date: 12/03/16 Status: [...] sleep, # 60 tab(s), 1 Refill(s), Pharmacy: [facility] [id number] Start Date: 06/29/14 Stop Date: 07/27/14 Status: DiscontinuedKeflex 500 mg oral capsule 1 cap(s), Oral, TID, # 9 cap(s), 0 Refill(s), Start Date: 05/01/15 9:36:00 CDT Start Date: 05/01/15 Stop Date: 05/12/15 Status: CompletedKeflex 500 mg oral capsule 1 cap(s), Oral, TID, # 9 cap(s), 0 Refill(s), Start Date: 05/08/15 8:56:00 CDT, Pharmacy: [facility] [id number] Start Date: 05/08/15 Stop Date: 05/09/15 Status: [...] Refill(s), Start Date: 04/07/15 9:32:00 CDT, Pharmacy: [facility] [id number] Start Date: 04/07/15 Stop Date: 05/17/15 Status: CompletedLatuda 120 mg oral tablet 1 tab(s), Oral, Daily, # 30 tab(s), 1 Refill(s), Start Date: 05/17/15 8:34:10 CDT, Pharmacy: [facility] [id number] Start Date: 05/17/15 Stop Date: 11/01/16 Status: CompletedLatuda 20 mg oral tablet 3 tab(s), Oral, qPM, # 90 tab(s), 0 Refill(s), Pharmacy: [facility] [id number] Start Date: 06/20/14 Stop Date: 06/21/14 Status: DiscontinuedLatuda 20 mg oral tablet 3 tab(s), Oral, qPM, 0 Refill(s) Start Date: 06/20/14 Stop Date: 06/20/14 Status: DiscontinuedLatuda 60 mg oral tablet 1 tab(s), Oral, Daily, # 28 tab(s), 1 Refill(s), Pharmacy: [facility] [id number], [id number], 10/16/16 Start Date: 06/29/14 Stop Date: 07/19/14 Status: CompletedLatuda 60 mg oral tablet 1 tab(s), Oral, Daily, # 30 tab(s), 1 Refill(s), Pharmacy: [facility] [id number], 10/16/16 Start Date: 08/16/14 Stop Date: 09/14/14 Status: DiscontinuedLatuda 60 mg oral tablet 1 tab(s), Oral, Daily, # 28 tab(s), 0 Refill(s), Start Date: 10/18/14 11:37:45 PRODUCTION MACHINE TENDER, [id number], 12/17/17 Start Date: 10/18/14 Stop Date: 11/21/14 Status: DiscontinuedLatuda 60 mg oral tablet 1 tab(s), Oral, Daily, # 28 tab(s), 0 Refill(s), Pharmacy: [facility] [id number], 10/16/16 Start Date: 07/19/14 Stop Date: 07/27/14 Status: CompletedLatuda 60 mg oral tablet 1 tab(s), Oral, Daily, # 28 tab(s), 0 Refill(s), Start Date: 10/18/14 11:37:15 PRODUCTION MACHINE TENDER, samples given to patient (Rx), 10/16/16 Start Date: 10/18/14 Stop Date: 10/24/14 Status: CompletedLatuda 60 mg oral tablet 1 tab(s), Oral, Daily, # 30 tab(s), 1 Refill(s), Start Date: 09/14/14 11:53:31 CDT, Pharmacy: [facility] [id number], 10/16/16 Start Date: 09/14/14 Stop Date: 10/18/14 Status: CompletedLatuda 60 mg oral tablet 1 tab(s), Oral, Daily, # 28 tab(s), 0 Refill(s), samples given to patient (Rx), [id number], 10/16/16 Start Date: 06/21/14 Stop Date: 06/29/14 Status: CompletedLatuda 60 mg oral tablet 1 tab(s), Oral, Daily, # 30 tab(s), 1 Refill(s), Pharmacy: [facility] [id number], 10/16/16 Start Date: 07/27/14 Stop Date: 08/16/14 Status: DiscontinuedLatuda 80 mg oral tablet 1 tab(s), Oral, Daily, with food, # 30 tab(s), 1 Refill(s), Start Date: 8:42:36 CDT, Pharmacy: [facility] [id number] Special Instructions: with food Start Date: 03/20/15 Stop Date: 04/07/15 Status: DiscontinuedLatuda 80 mg oral tablet 1 tab(s), Oral, Daily, with food, # 30 tab(s), 0 Refill(s), Start Date: 16:51:00 PRODUCTION MACHINE TENDER Special Instructions: with food Start Date: 11/01/16 Status: OrderedLatuda 80 mg oral tablet 1 tab(s), Oral, Daily, with food, # 30 tab(s), 1 Refill(s), Start Date: 17:40:04 PRODUCTION MACHINE TENDER, Pharmacy: [facility] Special Instructions: with food Start Date: 01/12/15 Stop Date: 03/20/15 Status: CompletedLatuda 80 mg oral tablet 1 tab(s), Oral, Daily, with food, # 30 tab(s), 1 Refill(s), Start Date: 12:02:00 PRODUCTION MACHINE TENDER, Pharmacy: [facility] [id number] Special Instructions: with food Start Date: 11/21/14 Stop Date: 01/12/15 Status: CompletedLevaquin 500 mg oral tablet 1 tab(s), Oral, Daily, X 10 days, # 10 tab(s), 0 Refill(s), Start Date: 9:59:00 PRODUCTION MACHINE TENDER, Pharmacy: [facility] Start Date: 12/16/15 Stop Date: 12/26/15 Status: CompletedLidoderm 5% topical film Topical, HS, 0 Refill(s) Start Date: 06/13/14 Stop Date: 06/20/14 Status: Discontinuedlisdexamfetamine 30 mg oral capsule 1 cap(s), Oral, qAM, # 30 cap(s), 0 Refill(s), Start Date: 12/16/14 10:24:00 PRODUCTION MACHINE TENDER , Pharmacy: [facility] [id number] Start Date: 12/16/14 Stop Date: 12/30/14 Status: Discontinuedlisdexamfetamine 50 mg oral capsule 1 cap(s), Oral, qAM, # 30 cap(s), 0 Refill(s), Start Date: 12/30/14 11:56:00 PRODUCTION MACHINE TENDER , Pharmacy: [facility] [id number] Start Date: 12/30/14 Stop Date: 01/10/15 Status: [...] mL, Subcutaneous, Daily, Start Date: 01/21/16 15:05:00 PRODUCTION MACHINE TENDER Start Date: 01/21/16 Stop Date: 05/22/16 Status: CompletedLutera 100 mcg-20 mcg oral tablet 1 tab(s), Oral, Daily, 2 tabs for 3 days, then 1 tab daily. Use continuously by skipping the last 7 pills and starting the next pack., # 56 tab(s), 0 Refill(s) , Start Date: 08/11/15 18:56:00 CDT, Pharmacy: [facility] [id number] Special Instructions: 2 tabs for 3 days, then 1 tab daily. Use continuously by skipping the last 7 pills and starting the next pack. Start Date: 08/11/15 Stop Date: 10/15/15 Status: CompletedLuvox Oral, 0 Refill(s) Start Date: 03/15/14 Stop Date: 05/25/14 Status: Discontinuedmirtazapine 15 mg oral tablet 0.5 - 1 tab, Oral, HS, # 30 tab(s), 1 Refill(s), Pharmacy: [facility] [id number] Start Date: 07/27/14 Stop Date: 08/16/14 Status: [...] 24 tab(s), 0 Refill(s), Start Date: 18:24:00 PRODUCTION MACHINE TENDER Start Date: 11/28/15 Stop Date: 12/03/15 Status: CompletedNorco 5 mg-325 mg oral tablet 1 tab(s), Oral, q4hr, PRN for pain, X 1 days, # 6 tab(s), 0 Refill(s), Start Date: 10/11/16 14:29:00 PRODUCTION MACHINE TENDER Start Date: 10/11/16 Stop Date: 10/12/16 Status: [...] tab(s), 0 Refill(s), Start Date: 11/21/16 13:42:00 PRODUCTION MACHINE TENDER Special Instructions: Do not work or drive with this medication Start Date: 11/21/16 Stop Date: 11/28/16 Status: [...] tab(s), Oral, BID, # 10 tab(s), 0 Refill(s), Start Date: 01/10/17 17:30:00 PRODUCTION MACHINE TENDER Start Date: 01/10/17 Stop Date: 01/15/17 Status: Orderedorphenadrine 100 mg oral tablet, extended release 1 tab(s), Oral, BID, # 10 tab(s), 0 Refill(s) Start Date: 04/21/14 Stop Date: 05/25/14 Status: Discontinuedoxybutynin 10 mg/24 hr oral tablet, extended release 1 tab(s), Oral, Daily, # 30 tab(s), 11 Refill(s), Start Date: 01/23/15 13:06:00 CDT, Pharmacy: [facility] [id number] Start Date: 01/23/15 Stop Date: 03/10/15 Status: CompletedoxyCODONE-acetaminophen 5 mg-325 mg oral tablet 1 tab(s), Oral, q4hr, PRN for pain, Dispense, # 2 tab(s), 0 Refill(s), Start Date: 01/20/16 2:59:00 PRODUCTION MACHINE [employer]ENDER Special Instructions: Dispense Start Date: 01/20/16 Stop Date: 01/21/16 Status: CompletedoxyCODONE-acetaminophen 5 mg-325 mg oral tablet 1 tab(s), Oral, q4hr, PRN for pain, # 10 tab(s), 0 Refill(s), Start Date: 2:58:00 PRODUCTION MACHINE TENDER Start Date: 01/20/16 Stop Date: 01/22/16 Status: [...] tab(s), 0 Refill(s), Start Date: 12/08/16 21:25:00 PRODUCTION MACHINE TENDER Start Date: 12/08/16 Stop Date: 12/11/16 Status: CompletedPercocet 5/325 oral tablet 1 tab(s), Oral, q6hr, PRN for pain, X 3 days, # 12 tab(s), 0 Refill(s), Start Date: 12/12/14 15:48:00 PRODUCTION MACHINE TENDER Start Date: 12/12/14 Stop Date: 12/15/14 Status: [...] tab(s), 0 Refill(s), Start Date: 12/13/16 21:12:00 PRODUCTION MACHINE TENDER Special Instructions: Do not work or drive with this medication Start Date: 12/13/16 Stop Date: 12/16/16 Status: CompletedPercocet 5/325 oral tablet 2 tab(s), [...] tab(s), 0 Refill(s), Start Date: 09/30/15 12:10:00 PRODUCTION MACHINE TENDER Start Date: 09/30/15 Stop Date: 10/25/15 Status: [...] CompletedPhenergan 25 mg rectal suppository 1 supp, VT, q6hr interval, # 12 supp, 0 Refill(s), Start Date: 01/28/16 4:33:00 CDT Start Date: 01/28/16 Stop Date: 05/22/16 Status: CompletedPhenergan 50 mg rectal suppository 1 supp, VT, q6hr interval, # 12 supp, 0 Refill(s), Start Date: 11/01/16 20:08: 00 PRODUCTION MACHINE TENDER Start Date: 11/01/16 Stop Date: 11/21/16 Status: [...] 0 Refill(s) , Start Date: 10/23/16 11:52:00 PRODUCTION MACHINE TENDER Start Date: 10/23/16 Stop Date: 11/01/16 Status: [...] Discontinuedpromethazine 25 mg rectal suppository 1 supp, VT, q4hr, PRN for nausea/vomiting, # 18 supp, [...] # 90 tab(s), 1 Refill( s), Pharmacy: [facility] [id number] Special Instructions: Take 2-3 tabs qhs for mood and anxiety Start Date: 05/25/14 Stop Date: 06/13/14 Status: DiscontinuedSeptra DS 800 mg-160 mg oral tablet 1 tab(s), Oral, BID, X 10 days, # 20 tab(s), 0 Refill(s), Start Date: 12/26/14 18:44:00 PRODUCTION MACHINE TENDER, Pharmacy: [facility] [id number] Start Date: 12/26/14 Stop Date: 01/05/15 Status: CompletedSEROquel 400 mg, Oral, HS, 0 Refill(s) Start Date: 03/15/14 Stop Date: 06/20/14 Status: DiscontinuedSEROquel 100 mg oral tablet 1 tab(s), Oral, HS, # 30 tab(s), 1 Refill(s), Pharmacy: [facility] [id number] Start Date: 06/29/14 Stop Date: 07/27/14 Status: DiscontinuedSEROquel 200 mg oral tablet 1 tab(s), Oral, HS, # 30 tab(s), 0 Refill(s), Pharmacy: [facility] [id number] Start Date: 06/20/14 Stop Date: 06/29/14 Status: [...] tab(s), 3 Refill(s), Start Date: 11/21/14 12:01:00 PRODUCTION MACHINE TENDER, Pharmacy: [facility] [id number] Start Date: 11/21/14 Stop Date: 12/16/14 Status: CompletedTessalon Perles 100 mg oral capsule 1 cap(s), Oral, TID, # 21 cap(s), 0 Refill(s), Start Date: 10/05/16 15:22:00 PRODUCTION MACHINE TENDER , [facility] [place] Start Date: 10/05/16 Stop Date: 10/23/16 [...] Refill(s), Start Date: 07/24 12:21:00 CDT, Pharmacy: [facility] Start Date: 07/24/16 Stop Date: 07/30/16 Status: CompletedtraMADol 50 mg oral tablet 1 tab(s), Oral, q6hr, PRN for pain, # 30 tab(s), 0 Refill(s), Start Date: 12:10:00 PRODUCTION MACHINE TENDER Start Date: 09/30/15 Stop Date: 11/28/15 Status: CompletedtraMADol 50 mg oral tablet 1 tab(s), Oral, q4hr, PRN for pain, # 16 tab(s), 0 Refill(s), Start Date: 20:08:00 PRODUCTION MACHINE TENDER Start Date: 11/01/16 Stop Date: 11/21/16 Status: CompletedtraMADol 50 mg oral tablet 1 tab(s), Oral, q4hr, PRN for pain, # 20 tab(s), 0 Refill(s) Start Date: 07/10/14 Stop Date: 07/27/14 Status: CompletedtraMADol 50 mg oral tablet 1 tab(s), Oral, q4hr, PRN for pain, # 24 tab(s), 0 Refill(s), Start Date: 16:34:00 PRODUCTION MACHINE TENDER Start Date: 01/21/15 Stop Date: 03/10/15 Status: CompletedtraMADol 50 mg oral tablet 2 tab(s), Oral, q12hr, PRN for pain, # 120 tab(s), 0 Refill(s), Pharmacy: [facility] [id number] Start Date: 06/20/14 Stop Date: 08/16/14 Status: CompletedtraMADol 50 mg oral tablet 2 tab(s), Oral, q4hr, PRN for pain, 1-2 TABS EVERY 4-6 HOURS PRN PAIN, # 90 tab( s), 0 Refill(s), Start Date: 12/07/14 15:23:15 PRODUCTION MACHINE TENDER, other reason (Rx) Special Instructions: 1-2 TABS EVERY 4-6 HOURS PRN PAIN Start Date: 12/07/14 Stop Date: 12/16/14 Status: CompletedtraMADol 50 mg oral tablet 2 tab(s), Oral, q4hr, PRN for pain, # 12 tab(s), 0 Refill(s), Start Date: 17:51:00 PRODUCTION MACHINE TENDER Start Date: 12/06/14 Stop Date: 12/07/14 Status: [...] tab(s), 0 Refill(s), Start Date: 10/23 11:51:00 PRODUCTION MACHINE TENDER Start Date: 10/23/16 Stop Date: 11/01/16 Status: CompletedVESIcare 5 mg oral tablet 1 tab(s), Oral, Daily, # 28 tab(s), 0 Refill(s), Start Date: 12/20/14 11:16:00 PRODUCTION MACHINE TENDER, samples given to patient (Rx), [id number], 09/17/16 Start Date: 12/20/14 Stop Date: 02/06/15 Status: CompletedVESIcare 5 mg oral tablet 1 tab(s), Oral, Daily, # 30 tab(s), 11 Refill(s), Start Date: 12/20/14 11:12:00 PRODUCTION MACHINE TENDER, Pharmacy: [facility] [id number] Start Date: 12/20/14 Stop Date: 02/06/15 Status: CompletedVESIcare 5 mg oral tablet 1 tab(s), Oral, Daily, # 30 tab(s), 0 Refill(s), Start Date: 11/22/14 10:40:00 PRODUCTION MACHINE TENDER, [id number], 11/16/16 Start Date: 11/22/14 Stop Date: 12/20/14 [...] tab(s), 0 Refill(s), Start Date: 10/26/14 13:16:00 [employer] Start Date: 10/26/14 Stop Date: 10/31/14 Status: [...] qAM, 0 Refill(s), Start Date: 12/20/14 10:54:00 [employer] Start Date: 12/20/14 Stop Date: 12/30/14 Status: DiscontinuedVyvanse 30 mg oral capsule See Instructions, 1 cap(s) Oral qAM for 1 week, then switch to 50mg cap, # 7 cap (s), 0 Refill(s), Start Date: 02/06/15 16:12:00 CDT, Pharmacy: [facility] [id number] Special Instructions: 1 cap(s) Oral qAM for [...] Refill(s), Start Date: 02/14/15 8:00:00 CDT, Pharmacy: [facility] [id number] Special Instructions: start taking after you have taken 30mg for 1 week Start Date: 02/14/15 Stop Date: 02/14/15 Status: CompletedVyvanse 50 mg oral capsule 1 cap(s), Oral, qAM, # 30 cap(s), 0 Refill(s), Start Date: 02/20/15 16:08:38 CDT , Pharmacy: [facility] [id number] Start Date: 02/20/15 Stop Date: 03/10/15 Status: [...] 30 tab(s), 1 Refill(s), Start Date: 10:23:00 [employer]INE [employer], Pharmacy: [facility] [id number] Start Date: 12/16/14 Stop Date: 02/27/15 Status: Completedzolpidem 10 mg oral tablet 1 tab(s), Oral, HS, PRN for sleep, # 30 tab(s), 1 Refill(s), Start Date: 9:53:46 CDT, Pharmacy: [facility] [id number] Start Date: 02/27/15 Stop Date: 05/02/15 Status: Completedzolpidem 10 mg oral tablet 1 tab(s), Oral, HS, PRN for sleep, # 30 tab(s), 1 Refill(s), Start Date: 8:49:02 CDT, Pharmacy: [facility] [id number] Start Date: 05/02/15 Stop Date: 05/27/16 Status: Completedzolpidem 5 mg oral tablet 1 tab(s), Oral, HS, PRN for sleep, Start Date: 05/22/16 17:36:00 CDT Start Date: 05/22/16 Stop Date: 09/15/16 Status: Completedzolpidem 5 mg oral tablet 1 tab(s), Oral, HS, PRN for sleep, 0 Refill(s), Start Date: 10/04/16 8:47:00 [employer] Start Date: 10/04/16 Stop Date: 11/01/16 Status: Completed Results Patient Viewable Results Most recent to oldest [Reference Range]: 1 Estimated Creatinine Clearance 157.96 mL/min (2/24/17 4:26 PM) UA Color Yellow *NA* (01/10/17 5:16 PM) Urine Clarity Cloudy *NA* (01/10/17 5:16 PM) Specific [place] [1.000-1.060] 1.018 (01/10/17 5:16 PM) Urine pH [5-8] 6 (01/10/17 5:16 PM) Ketones Negative (01/10/17 5:16 PM) Bilirubin [Negative] Negative (01/10/17 5:16 PM) Urine Protein [Negative] Negative (01/10/17 5:16 PM) Glucose [Negative] Negative (01/10/17 5:16 PM) Urine HGB [Negative] Negative (01/10/17 5:16 PM) Urobilinogen <2.0 *NA* (01/10/17 5:16 PM) Nitrite [Negative] Negative (01/10/17 5:16 PM) Leuk Esterase [Negative] Negative (01/10/17 5:16 PM) UA Ascorbic Acid [Negative] Negative (01/10/17 5:16 PM) Urine WBC [0-5] 0-5 (01/10/17 5:16 PM) Urine RBC [0-2] 0-2 (01/10/17 5:16 PM) Squamous Epi [0-5] 21-30 *ABN* (01/10/17 5:16 PM) Bacteria 1+ *ABN* (01/10/17 5:16 PM) Mucus 1+ (01/10/17 5:16 PM) Urine [Negative] Negative (01/10/17 5:16 PM) UA HCG, Interp. First morning urine specimen is preferred. If the result does not correlate with clinical presentation, then either immediate serum quantitative HCG test or repeat qualitative test in forty-eight hour s recommended. The test is intended as an aid in diagnosing early . *Unknown* (01/10/17 5:16 PM) Immunizations Vaccine Date Refusal Reason tetanus/diphth/pertuss (Tdap) [...] lumpectomy section section9 Cholecystectomy Cholecystectomy Colonoscopy Esophagogastroduodenoscopy [id number] Lateral release of knee11 Lumpectomy of [id number] Procedure on bladder Stent Stent onruorz05 Tubal ligation 1auto-populated from documented surgical [id number]-kgydgmjyq from documented surgical ulau7tpbi-tgtuklora from documented surgical nhqb6mweu-lzmbutymx from documented surgical [id number]-tgvehleio from documented surgical pxuh6uaaf- populated from documented surgical [id number]-fvuiyabtu from documented surgical [id number] in [place]9x 310Wisdom [id number] pbem59Ldbl breast -- [id number] klyt48zeyk duct Social History No data available for this section Assessment and Plan No data available for this section
--- OUTSIDE RECORDS SUMMARY | 2017-01-18 15:10 | XMS REPORT | Summary of Care ---
:1980 Author Organization [facility] Address [address] [place] [id number]- Care Team Providers Name Role Phone Jessy Taylor Primary Care Physician Encounter Date(s): 12/25/16 - 12/25/[address] [address]- [facility] Discharge Diagnosis: Contusion of knee, right Discharge Diagnosis: Contusion of hand, left Discharge Disposition: 01 Discharged to Home or Self Care Attending Physician: Eufemia Perez MD Admitting Physician: Efuemia Perez MD Vital Signs Most recent to oldest [Reference Range]: 1 Temperature Temporal Artery [36.0-38.0 DegC] 36.5 DegC (12/25/16 2:00 PM) Heart Rate Monitored [60-100 bpm] 103 bpm *HI* (12/25/16 2:00 PM) Respiratory Rate [12-20 br/min] 20 br/min (12/25/16 2:00 PM) SpO2 100 % (12/25/16 2:00 PM) Blood Pressure [90-130/60-90 mmHg] 123/70mmHg (12/25/16 2:00 PM) Most recent to oldest [Reference Range]: 1 Weight Estimated 136.36 kg (12/25/16 2:00 PM) Weight Dosing 136.36 kg1 (12/25/16 2:05 PM) 1Result Comment: This result was because the dosing weight was either not entered or it is>30 days old. This result is based off: Weight Estimated December 25, 2016 14:00:00 [employer] by Ellen Osorio RN Problem List Condition Effective Dates Status [...] tab(s), 0 Refill(s), Start Date: 01/03/15 15:28:02 [employer], Pharmacy: [facility] [id number] Special Instructions: take 1 every morning and 1 every noon take on empty stomach Start Date: 01/03/15 Stop Date: 01/10/15 Status: DiscontinuedAdderall 20 mg oral tablet 1 tab(s), Oral, BID, take 1 tab in the morning and 1 tab at noon., # 60 tab(s), 0 Refill(s), Start Date: 03/10/15 9:18:00 CDT, Pharmacy: [facility] [id number] Special Instructions: take 1 tab in the morning and 1 tab at noon. Start Date: 03/10/15 Stop Date: 04/07/15 Status: DiscontinuedAdderall 20 mg oral tablet 1 tab(s), Oral, BID, take 1 tab in the morning and 1 tab at noon., # 60 tab(s), 0 Refill(s), Start Date: 04/07/15 9:32:24 CDT, Pharmacy: [facility] [id number] Special Instructions: take 1 tab in the morning and 1 tab at noon. Start Date: 04/07/15 Stop Date: 05/08/15 Status: CompletedAdderall 20 mg oral tablet 1 tab(s), Oral, BID, take 1 tab in the morning and 1 tab at noon., # 60 tab(s), 0 Refill(s), Start Date: 06/06/15 9:28:56 CDT, Pharmacy: [facility] [id number] Special Instructions: take 1 tab in the morning and 1 tab at noon. Start Date: 06/06/15 Stop Date: 08/14/15 Status: CompletedAdderall 20 mg oral tablet 1 tab(s), Oral, BID, take 1 tab in the morning and 1 tab at noon., # 60 tab(s), 0 Refill(s), Start Date: 05/08/15 11:52:49 CDT, Pharmacy: [facility] [id number] Special Instructions: take 1 tab in the morning and 1 tab at noon. Start Date: 05/08/15 Stop Date: 06/06/15 Status: CompletedAdderall 20 mg oral tablet 1 tab(s), Oral, BID, take 1 tab qam and 1 tab at noon., # 60 tab(s), 0 Refill(s) , Start Date: 01/10/15 10:07:00 [employer], Pharmacy: [facility] [id number] Special Instructions: take 1 tab qam and 1 tab at noon. Start Date: 01/10/15 Stop Date: 02/06/15 Status: Discontinuedalbuterol CFC free 90 mcg/inh inhalation aerosol 2 puff(s), Inhale, QID, PRN for wheezing, X 7 days, # 1 EA, 0 Refill(s), Start Date: 12/16/15 10:00:00 [employer], Pharmacy: [facility] Start Date: 12/16/15 Stop Date: 12/23/15 Status: CompletedAmbien 5 mg oral tablet 1 tab(s), Oral, HS, PRN for sleep, # 30 tab(s), 1 Refill(s), called to pharmacy (Rx) Start Date: 08/16/14 Stop Date: 09/14/14 Status: DiscontinuedAmbien 5 mg oral tablet 1 tab(s), Oral, HS, PRN for sleep, # 30 tab(s), 1 Refill(s), Start Date: 11:37:30 [employer], Pharmacy: [facility] [id number] Start Date: 10/18/14 Stop Date: 11/21/14 Status: DiscontinuedAmbien 5 mg oral tablet 1 tab(s), Oral, HS, PRN for sleep, # 30 tab(s), 3 Refill(s), Start Date: 12:01:43 [employer], Pharmacy: [facility] [id number] Start Date: 11/21/14 Stop Date: 12/16/14 Status: [...] tab(s), 11 Refill(s), Start Date: 11/03/14 10:16:00 [employer] , Pharmacy: [facility] [id number] Start Date: 11/03/14 Stop Date: 11/21/14 Status: Completedamitriptyline 50 mg oral tablet 1 tab(s), Oral, HS, # 30 tab(s), 0 Refill(s), Start Date: 11/21/14 11:30:00 [employer] Start Date: 11/21/14 Stop Date: 02/06/15 Status: Completedamoxicillin 500 mg oral capsule 1 cap(s), Oral, TID, X 10 days, # 30 cap(s), 0 Refill(s), [facility] [place] [place] Start Date: 05/07/14 Stop Date: 05/17/14 [...] tab(s), 0 Refill(s), Start Date: 10/18/14 11:37:13 [employer], Pharmacy: [facility] [id number] Start Date: 10/18/14 Stop Date: 11/21/14 Status: DiscontinuedAtivan 1 mg oral tablet 0.5 - 1 tab, Oral, BID, PRN for anxiety, # 60 tab(s), 3 Refill(s), Start Date: 11/21/14 12:01:39 [employer], [id number] Start Date: 11/21/14 Stop Date: 12/16/14 Status: [...] cap(s), 0 Refill(s), Start Date: 10/15/15 17:02:00 [employer] Start Date: 10/15/15 Stop Date: 01/21/16 Status: [...] cap(s), 0 Refill(s), Start Date: 10/05/16 15:21:00 [employer], [place] Start Date: 10/05/16 Stop Date: 10/23/16 Status: Completedcephalexin 500 mg oral tablet 1 tab(s), Oral, QID, # 28 tab(s), 0 Refill(s) Start Date: 05/13/14 Stop Date: 06/13/14 Status: DiscontinuedCheratussin AC 10 mg-100 mg/5 mL oral syrup 5 mL, Oral, q4hr, PRN for cough, # 120 mL, 0 Refill(s), Start Date: 12/26/14 18: 43:00 [employer] Start Date: 12/26/14 Stop Date: 01/09/15 Status: Completedcimetidine 300 mg oral tablet 1 tab(s), Oral, TID, # 15 tab(s), 0 Refill(s) Start Date: 06/02/14 Stop Date: 06/20/14 Status: DiscontinuedCipro 500 mg oral tablet 1 tab(s), Oral, q12hr, # 2 tab(s), 0 Refill(s), Start Date: 10/26/14 13:16:00 [employer] Start Date: 10/26/14 Stop Date: 11/03/14 Status: CompletedCipro 500 mg oral tablet 1 tab(s), Oral, q12hr, # 20 tab(s), 0 Refill(s) Start Date: 09/01/14 Stop Date: 09/27/14 Status: Discontinuedcitalopram 10 mg oral tablet 1 tab(s), Oral, Daily, # 30 tab(s), 1 Refill(s), Pharmacy: [facility] [id number] Start Date: 05/25/14 Stop Date: 06/13/14 Status: Discontinuedcitalopram 10 mg oral tablet 1 tab(s), Oral, Daily, # 30 tab(s), 0 Refill(s) Start Date: 06/13/14 Stop Date: 06/20/14 Status: DiscontinuedClaritin 10 mg oral tablet 1 tab(s), Oral, Daily, Start Date: 10/23/16 8:23:00 [employer] Start Date: 10/23/16 Stop Date: 11/01/16 Status: CompletedcloNIDine 0.1 mg oral tablet 0.5 tab, Oral, BID, discontinue and call clinic in case of fatigue or dizziness , # 30 tab(s), 0 Refill(s), Start Date: 10/18/14 11:38:00 [employer], Pharmacy: [facility] [id number] Special Instructions: discontinue and call clinic in [...] Refill(s), Start Date: 02/14/15 10:50:00 CDT, Pharmacy: [facility] [id number] Special Instructions: take 1 tab in the morning and 1 tab at noon. Start Date: 02/14/15 Stop Date: 03/10/15 Status: Discontinueddextroamphetamine-amphetamine 20 mg oral tablet 1 tab(s), Oral, BID, # 60 tab(s), 0 Refill(s), Start Date: 02/09/15 9:33:42 CDT , Pharmacy: [facility] [id number] Start Date: 02/09/15 Stop Date: 02/14/15 Status: CompletedDiflucan 150 mg oral tablet 1 tab(s), Oral, Every other day, # 5 tab(s), 0 Refill(s), Start Date: 03/14/16 17:57:30 CDT, Pharmacy: [facility] [id number] Start Date: 03/14/16 Stop Date: 03/26/16 Status: CompletedDiflucan 150 mg oral tablet 1 tab(s), Oral, Every other day, # 5 tab(s), 0 Refill(s), Start Date: 03/13/16 18:45:00 CDT, Pharmacy: [facility] Start Date: 03/13/16 Stop Date: 03/14/16 Status: DiscontinuedDiflucan 150 mg oral tablet 1 tab(s), Oral, ONETIME, # 1 tab(s), 0 Refill(s), Start Date: 12/16/15 9:59:00 [employer], Pharmacy: [facility] Start Date: 12/16/15 Stop Date: 01/21/16 [...] Refill(s), Start Date: 05/04/15 10:05:00 CDT, Pharmacy: [facility] [id number] Start Date: 05/04/15 Stop Date: 05/09/15 Status: [...] tab(s), 0 Refill(s), Start Date: 10/29/14 18:14:00 [employer] Start Date: 10/29/14 Stop Date: 11/21/14 Status: [...] gm, 0 Refill(s), Start Date: 12/26 18:44:00 [employer], Pharmacy: [facility] [id number] Special Instructions: in each nostril Start Date: 12/26/14 Stop Date: 02/06/15 Status: Completedfluconazole 150 mg oral tablet tab(s), Oral, Daily, 0 Refill(s) Start Date: 06/13/14 Stop Date: 06/13/14 Status: Discontinuedfluticasone 50 mcg/inh nasal spray 2 spray(s), Nasal, Daily, X 14 days, # 1 EA, 0 Refill(s), Start Date: 12/16/15 9 :59:00 [employer], Pharmacy: [facility] Start Date: 12/16/15 Stop Date: 12/30/15 [...] HS, # 60 cap(s), 0 Refill(s), Pharmacy: [facility] [id number] Start Date: 06/20/14 Stop Date: 08/16/14 Status: Completedgabapentin 100 mg oral capsule 2 cap(s), Oral, HS, 0 Refill(s) Start Date: 06/20/14 Stop Date: 06/20/14 Status: Discontinuedgabapentin 300 mg oral capsule 1 cap(s), Oral, BID, 0 Refill(s) Start Date: 06/20/14 Stop Date: 06/20/14 Status: Discontinuedgabapentin 300 mg oral capsule 1 cap(s), Oral, BID, # 60 cap(s), 0 Refill(s), Pharmacy: [facility] [id number] Start Date: 06/20/14 Stop Date: 08/16/14 Status: CompletedHYDROcodone Oral, q12hr interval, 0 Refill(s), Start Date: 10/20/14 14:03:00 [employer] Start Date: 10/20/14 Stop Date: 11/21/14 Status: CompletedHYDROcodone-acetaminophen 5 mg-325 mg oral tablet 2 tab(s), Oral, q4hr, PRN for pain, 0 Refill(s), Start Date: 06/23/15 10:20:00 CDT Start Date: 06/23/15 Stop Date: 10/15/15 Status: CompletedHYDROcodone-acetaminophen 5 mg-325 mg oral tablet 1 tab(s), Oral, q6hr, PRN for pain, # 30 tab(s), 0 Refill(s), Start Date: 15:24:00 [employer], other reason (Rx) Start Date: 12/07/14 Stop Date: 02/06/15 Status: CompletedHYDROcodone-acetaminophen 5 mg-325 mg oral tablet 2 tab(s), Oral, q6hr, X 3 days, # 15 tab(s), 0 Refill(s), Start Date: 07/29/15 23:32:00 CDT Start Date: 07/29/15 Stop Date: 08/01/15 Status: CompletedHYDROcodone-acetaminophen 5 mg-325 mg oral tablet 2 tab(s), Oral, q6hr, X 3 days, # 8 tab(s), 0 Refill(s), Start Date: 12/04/15 21 :39:00 [employer] Start Date: 12/04/15 Stop Date: 12/07/15 Status: [...] tab(s), 0 Refill(s), Start Date: 12/02/16 20:14:00 [employer] Start Date: 12/02/16 Stop Date: 12/05/16 Status: CompletedHYDROcodone-acetaminophen 5mg-325mg oral tablet 1 tab(s), Oral, q6hr interval, # 12 tab(s), 0 Refill(s), Start Date: 09/15/16 13 :20:00 CDT Start Date: 09/15/16 Stop Date: 09/17/16 Status: Completedhydrocodone-acetaminophen 5mg-325mg oral tablet 2 tab(s), Oral, q6hr, X 1 days, # 4 tab(s), 0 Refill(s), Start Date: 12/02/16 23 :27:00 [employer] Start Date: 12/02/16 Stop Date: 12/03/16 Status: [...] sleep, # 60 tab(s), 1 Refill(s), Pharmacy: [facility] [id number] Start Date: 06/29/14 Stop Date: 07/27/14 Status: DiscontinuedKeflex 500 mg oral capsule 1 cap(s), Oral, TID, # 9 cap(s), 0 Refill(s), Start Date: 05/01/15 9:36:00 CDT Start Date: 05/01/15 Stop Date: 05/12/15 Status: CompletedKeflex 500 mg oral capsule 1 cap(s), Oral, TID, # 9 cap(s), 0 Refill(s), Start Date: 05/08/15 8:56:00 CDT, Pharmacy: [facility] [id number] Start Date: 05/08/15 Stop Date: 05/09/15 Status: [...] Refill(s), Start Date: 04/07/15 9:32:00 CDT, Pharmacy: [facility] [id number] Start Date: 04/07/15 Stop Date: 05/17/15 Status: CompletedLatuda 120 mg oral tablet 1 tab(s), Oral, Daily, # 30 tab(s), 1 Refill(s), Start Date: 05/17/15 8:34:10 CDT, Pharmacy: [facility] [id number] Start Date: 05/17/15 Stop Date: 11/01/16 Status: CompletedLatuda 20 mg oral tablet 3 tab(s), Oral, qPM, # 90 tab(s), 0 Refill(s), Pharmacy: [facility] [id number] Start Date: 06/20/14 Stop Date: 06/21/14 Status: DiscontinuedLatuda 20 mg oral tablet 3 tab(s), Oral, qPM, 0 Refill(s) Start Date: 06/20/14 Stop Date: 06/20/14 Status: DiscontinuedLatuda 60 mg oral tablet 1 tab(s), Oral, Daily, # 28 tab(s), 1 Refill(s), Pharmacy: [facility] [id number], [id number], 10/16/16 Start Date: 06/29/14 Stop Date: 07/19/14 Status: CompletedLatuda 60 mg oral tablet 1 tab(s), Oral, Daily, # 30 tab(s), 1 Refill(s), Pharmacy: [facility] [id number], 10/16/16 Start Date: 08/16/14 Stop Date: 09/14/14 Status: DiscontinuedLatuda 60 mg oral tablet 1 tab(s), Oral, Daily, # 28 tab(s), 0 Refill(s), Start Date: 10/18/14 11:37:45 [employer], [id number], 12/17/17 Start Date: 10/18/14 Stop Date: 11/21/14 Status: DiscontinuedLatuda 60 mg oral tablet 1 tab(s), Oral, Daily, # 28 tab(s), 0 Refill(s), Pharmacy: [facility] [id number], 10/16/16 Start Date: 07/19/14 Stop Date: 07/27/14 Status: CompletedLatuda 60 mg oral tablet 1 tab(s), Oral, Daily, # 28 tab(s), 0 Refill(s), Start Date: 10/18/14 11:37:15 [employer], samples given to patient (Rx), 10/16/16 Start Date: 10/18/14 Stop Date: 10/24/14 Status: CompletedLatuda 60 mg oral tablet 1 tab(s), Oral, Daily, # 30 tab(s), 1 Refill(s), Start Date: 09/14/14 11:53:31 CDT, Pharmacy: [facility], 10/16/16 Start Date: 09/14/14 Stop Date: 10/18/14 Status: CompletedLatuda 60 mg oral tablet 1 tab(s), Oral, Daily, # 28 tab(s), 0 Refill(s), samples given to patient (Rx), [id number], 10/16/16 Start Date: 06/21/14 Stop Date: 06/29/14 Status: CompletedLatuda 60 mg oral tablet 1 tab(s), Oral, Daily, # 30 tab(s), 1 Refill(s), Pharmacy: [facility] [id number], 10/16/16 Start Date: 07/27/14 Stop Date: 08/16/14 Status: DiscontinuedLatuda 80 mg oral tablet 1 tab(s), Oral, Daily, with food, # 30 tab(s), 1 Refill(s), Start Date: 8:42:36 CDT, Pharmacy: [facility] Special Instructions: with food Start Date: 03/20/15 Stop Date: 04/07/15 Status: DiscontinuedLatuda 80 mg oral tablet 1 tab(s), Oral, Daily, with food, # 30 tab(s), 0 Refill(s), Start Date: 16:51:00 [employer] Special Instructions: with food Start Date: 11/01/16 Status: OrderedLatuda 80 mg oral tablet 1 tab(s), Oral, Daily, with food, # 30 tab(s), 1 Refill(s), Start Date: 17:40:04 [employer], Pharmacy: [facility] [id number] Special Instructions: with food Start Date: 01/12/15 Stop Date: 03/20/15 Status: CompletedLatuda 80 mg oral tablet 1 tab(s), Oral, Daily, with food, # 30 tab(s), 1 Refill(s), Start Date: 12:02:00 [employer], Pharmacy: [facility] [id number] Special Instructions: with food Start Date: 11/21/14 Stop Date: 01/12/15 Status: CompletedLevaquin 500 mg oral tablet 1 tab(s), Oral, Daily, X 10 days, # 10 tab(s), 0 Refill(s), Start Date: 9:59:00 [employer], Pharmacy: [facility] Start Date: 12/16/15 Stop Date: 12/26/15 Status: CompletedLidoderm 5% topical film Topical, HS, 0 Refill(s) Start Date: 06/13/14 Stop Date: 06/20/14 Status: Discontinuedlisdexamfetamine 30 mg oral capsule 1 cap(s), Oral, qAM, # 30 cap(s), 0 Refill(s), Start Date: 12/16/14 10:24:00 [employer] , Pharmacy: [facility] [id number] Start Date: 12/16/14 Stop Date: 12/30/14 Status: Discontinuedlisdexamfetamine 50 mg oral capsule 1 cap(s), Oral, qAM, # 30 cap(s), 0 Refill(s), Start Date: 12/30/14 11:56:00 [employer] , [id number] Start Date: 12/30/14 Stop Date: 01/10/15 Status: DiscontinuedLoestrin Fe /20 oral tablet 1 tab(s), Oral, Daily, # [...] mL, Subcutaneous, Daily, Start Date: 01/21/16 15:05:00 [employer] Start Date: 01/21/16 Stop Date: 05/22/16 Status: CompletedLutera 100 mcg-20 mcg oral tablet 1 tab(s), Oral, Daily, 2 tabs for 3 days, then 1 tab daily. Use continuously by skipping the last 7 pills and starting the next pack., # 56 tab(s), 0 Refill(s) , Start Date: 08/11/15 18:56:00 CDT, Pharmacy: [facility] [id number] Special Instructions: 2 tabs for 3 days, then 1 tab daily. Use continuously by skipping the last 7 pills and starting the next pack. Start Date: 08/11/15 Stop Date: 10/15/15 Status: CompletedLuvox Oral, 0 Refill(s) Start Date: 03/15/14 Stop Date: 05/25/14 Status: Discontinuedmirtazapine 15 mg oral tablet 0.5 - 1 tab, Oral, HS, # 30 tab(s), 1 Refill(s), Pharmacy: [facility] [id number] Start Date: 07/27/14 Stop Date: 08/16/14 Status: [...] 24 tab(s), 0 Refill(s), Start Date: 18:24:00 [employer] Start Date: 11/28/15 Stop Date: 12/03/15 Status: CompletedNorco 5 mg-325 mg oral tablet 1 tab(s), Oral, q4hr, PRN for pain, X 1 days, # 6 tab(s), 0 Refill(s), Start Date: 10/11/16 14:29:00 [employer] Start Date: 10/11/16 Stop Date: 10/12/16 Status: [...] tab(s), 0 Refill(s), Start Date: 11/21/16 13:42:00 [employer] Special Instructions: Do not work or drive [...] Refill(s), Start Date: 01/23/15 13:06:00 CDT, Pharmacy: [facility] [id number] Start Date: 01/23/15 Stop Date: 4/24/15 Status: CompletedoxyCODONE-acetaminophen 5 mg-325 mg oral tablet 1 tab(s), Oral, q4hr, PRN for pain, Dispense, # 2 tab(s), 0 Refill(s), Start Date: 01/20/16 2:59:00 [employer] Special Instructions: Dispense Start Date: 01/20/16 Stop Date: 01/21/16 Status: CompletedoxyCODONE-acetaminophen 5 mg-325 mg oral tablet 1 tab(s), Oral, q4hr, PRN for pain, # 10 tab(s), 0 Refill(s), Start Date: 2:58:00 [employer] Start Date: 01/20/16 Stop Date: 01/22/16 Status: [...] tab(s), 0 Refill(s), Start Date: 12/08/16 21:25:00 [employer] Start Date: 12/08/16 Stop Date: 12/11/16 Status: CompletedPercocet 5/325 oral tablet 1 tab(s), Oral, q6hr, PRN for pain, X 3 days, # 12 tab(s), 0 Refill(s), Start Date: 12/12/14 15:48:00 [employer] Start Date: 12/12/14 Stop Date: 12/15/14 Status: [...] tab(s), 0 Refill(s), Start Date: 12/13/16 21:12:00 [employer] Special Instructions: Do not work or drive [...] tab(s), 0 Refill(s), Start Date: 09/30/15 12:10:00 [employer] Start Date: 09/30/15 Stop Date: 10/25/15 Status: [...] CompletedPhenergan 25 mg rectal suppository 1 supp, [place], q6hr interval, # 12 supp, 0 Refill(s), Start Date: 01/28/16 4:33:00 CDT Start Date: 01/28/16 Stop Date: 05/22/16 Status: CompletedPhenergan 50 mg rectal suppository 1 supp, [place], q6hr interval, # 12 supp, 0 Refill(s), Start Date: 11/01/16 20:08: 00 [employer] Start Date: 11/01/16 Stop Date: 11/21/16 Status: [...] 0 Refill(s) , Start Date: 10/23/16 11:52:00 [employer] Start Date: 10/23/16 Stop Date: 11/01/16 Status: [...] Discontinuedpromethazine 25 mg rectal suppository 1 supp, [place], q4hr, PRN for nausea/vomiting, # 18 supp, [...] # 90 tab(s), 1 Refill( s), Pharmacy: [facility] [id number] Special Instructions: Take 2-3 tabs qhs for mood and anxiety Start Date: 05/25/14 Stop Date: 06/13/14 Status: DiscontinuedSeptra DS 800 mg-160 mg oral tablet 1 tab(s), Oral, BID, X 10 days, # 20 tab(s), 0 Refill(s), Start Date: 12/26/14 18:44:00 [employer], Pharmacy: [facility] [id number] Start Date: 12/26/14 Stop Date: 01/05/15 Status: CompletedSEROquel 400 mg, Oral, HS, 0 Refill(s) Start Date: 03/15/14 Stop Date: 06/20/14 Status: DiscontinuedSEROquel 100 mg oral tablet 1 tab(s), Oral, HS, # 30 tab(s), 1 Refill(s), Pharmacy: [facility] [id number] Start Date: 06/29/14 Stop Date: 07/27/14 Status: DiscontinuedSEROquel 200 mg oral tablet 1 tab(s), Oral, HS, # 30 tab(s), 0 Refill(s), Pharmacy: [facility] [id number] Start Date: 06/20/14 Stop Date: 06/29/14 Status: [...] tab(s), 3 Refill(s), Start Date: 11/21/14 12:01:00 [employer], [facility] [id number] Start Date: 11/21/14 Stop Date: 12/16/14 Status: CompletedTessalon Perles 100 mg oral capsule 1 cap(s), Oral, TID, # 21 cap(s), 0 Refill(s), Start Date: 10/05/16 15:22:00 [employer] , [facility] [facility] [place] [place] Start Date: 10/05/16 Stop Date: 10/23/16 [...] Refill(s), Start Date: 07/24 12:21:00 CDT, Pharmacy: [facility] Start Date: 07/24/16 Stop Date: 07/30/16 Status: CompletedtraMADol 50 mg oral tablet 1 tab(s), Oral, q6hr, PRN for pain, # 30 tab(s), 0 Refill(s), Start Date: 12:10:00 [employer] Start Date: 09/30/15 Stop Date: 11/28/15 Status: CompletedtraMADol 50 mg oral tablet 1 tab(s), Oral, q4hr, PRN for pain, # 16 tab(s), 0 Refill(s), Start Date: 20:08:00 [employer] Start Date: 11/01/16 Stop Date: 11/21/16 Status: CompletedtraMADol 50 mg oral tablet 1 tab(s), Oral, q4hr, PRN for pain, # 20 tab(s), 0 Refill(s) Start Date: 07/10/14 Stop Date: 07/27/14 Status: CompletedtraMADol 50 mg oral tablet 1 tab(s), Oral, q4hr, PRN for pain, # 24 tab(s), 0 Refill(s), Start Date: 16:34:00 [employer] Start Date: 01/21/15 Stop Date: 03/10/15 Status: CompletedtraMADol 50 mg oral tablet 2 tab(s), Oral, q12hr, PRN for pain, # 120 tab(s), 0 Refill(s), Pharmacy: [facility] [id number] Start Date: 06/20/14 Stop Date: 08/16/14 Status: CompletedtraMADol 50 mg oral tablet 2 tab(s), Oral, q4hr, PRN for pain, 1-2 TABS EVERY 4-6 HOURS PRN PAIN, # 90 tab( s), 0 Refill(s), Start Date: 12/07/14 15:23:15 [employer], other reason (Rx) Special Instructions: 1-2 TABS EVERY 4-6 HOURS PRN PAIN Start Date: 12/07/14 Stop Date: 12/16/14 Status: CompletedtraMADol 50 mg oral tablet 2 tab(s), Oral, q4hr, PRN for pain, # 12 tab(s), 0 Refill(s), Start Date: 17:51:00 [employer] Start Date: 12/06/14 Stop Date: 12/07/14 Status: [...] tab(s), 0 Refill(s), Start Date: 10/23 11:51:00 [employer] Start Date: 10/23/16 Stop Date: 11/01/16 Status: CompletedVESIcare 5 mg oral tablet 1 tab(s), Oral, Daily, # 28 tab(s), 0 Refill(s), Start Date: 12/20/14 11:16:00 [employer], samples given to patient (Rx), [id number], 09/17/16 Start Date: 12/20/14 Stop Date: 02/06/15 Status: CompletedVESIcare 5 mg oral tablet 1 tab(s), Oral, Daily, # 30 tab(s), 11 Refill(s), Start Date: 12/20/14 11:12:00 [employer], Pharmacy: [facility] [id number] Start Date: 12/20/14 Stop Date: 02/06/15 Status: CompletedVESIcare 5 mg oral tablet 1 tab(s), Oral, Daily, # 30 tab(s), 0 Refill(s), Start Date: 11/22/14 10:40:00 [employer], [id number], 11/16/16 Start Date: 11/22/14 Stop Date: 12/20/14 [...] tab(s), 0 Refill(s), Start Date: 10/26/14 13:16:00 [employer] Start Date: 10/26/14 Stop Date: 10/31/14 Status: [...] qAM, 0 Refill(s), Start Date: 12/20/14 10:54:00 [employer] Start Date: 12/20/14 Stop Date: 12/30/14 Status: DiscontinuedVyvanse 30 mg oral capsule See Instructions, 1 cap(s) Oral qAM for 1 week, then switch to 50mg cap, # 7 cap (s), 0 Refill(s), Start Date: 02/06/15 16:12:00 CDT, Pharmacy: [facility] [id number] Special Instructions: 1 cap(s) Oral qAM for [...] Refill(s), Start Date: 02/14/15 8:00:00 CDT, Pharmacy: [facility] [id number] Special Instructions: start taking after you have taken 30mg for 1 week Start Date: 02/14/15 Stop Date: 02/14/15 Status: CompletedVyvanse 50 mg oral capsule 1 cap(s), Oral, qAM, # 30 cap(s), 0 Refill(s), Start Date: 02/20/15 16:08:38 CDT , Pharmacy: [facility] [id number] Start Date: 02/20/15 Stop Date: 03/10/15 Status: [...] 30 tab(s), 1 Refill(s), Start Date: 10:23:00 [employer], Pharmacy: [facility] [id number] Start Date: 12/16/14 Stop Date: 02/27/15 Status: Completedzolpidem 10 mg oral tablet 1 tab(s), Oral, HS, PRN for sleep, # 30 tab(s), 1 Refill(s), Start Date: 9:53:46 CDT, Pharmacy: [facility] [id number] Start Date: 02/27/15 Stop Date: 05/02/15 Status: Completedzolpidem 10 mg oral tablet 1 tab(s), Oral, HS, PRN for sleep, # 30 tab(s), 1 Refill(s), Start Date: 8:49:02 CDT, Pharmacy: [facility] [id number] Start Date: 05/02/15 Stop Date: 05/27/16 Status: Completedzolpidem 5 mg oral tablet 1 tab(s), Oral, HS, PRN for sleep, Start Date: 05/22/16 17:36:00 CDT Start Date: 05/22/16 Stop Date: 09/15/16 Status: Completedzolpidem 5 mg oral tablet 1 tab(s), Oral, HS, PRN for sleep, 0 Refill(s), Start Date: 10/04/16 8:47:00 [employer] Start Date: 10/04/16 Stop Date: 11/01/16 Status: Completed Results Patient Viewable Results Most recent to oldest [Reference Range]: 1 Estimated Creatinine Clearance 156.67 mL/min (12/25/16 2:05 PM) Immunizations Vaccine Date Refusal Reason tetanus/diphth/pertuss (Tdap) adult/adol 05/13/14 influenza virus vaccine, inactivated1 08/30/15 1Result Comment: [09/05/2015] Per Pt states she revieved flu vaccine thru [facility]. Procedures Procedure Date Related Diagnosis Body Site Diagnostic Laparoscopy1 08/16/15 Arthrotomy Knee2 06/27/15 Insertion Interstim Generator Stage 23 05/09/15 Insertion Interstim Generator Stage 24 05/08/15 Insertion Interstim Electrode Stage 1 05/01/15 NonParalytic5 UDS - Urodynamics 03/20/15 Cystoscopy - SN6 10/26/14 Colonoscopy7 07/25/14 Tubal ligation8 01/16/05 Appendectomy Appendectomy Breast lumpectomy section section9 Cholecystectomy Cholecystectomy Colonoscopy Esophagogastroduodenoscopy [id number] Lateral release of knee11 Lumpectomy of hakswd78 Procedure on bladder Stent ksucnvvzs28 Stent fmqnnma44 Tubal ligation 1auto-populated from documented surgical tdbp6gywa-kmvsvajqc from documented surgical jxpd3ravp-pjoumzsne from documented surgical jndq3bbqs-mftjaburv from documented surgical cxmv0eaop-qnuronpgb from documented surgical dmxz3rjjd- populated from documented surgical agmr6fbcz-tzxlmommy from documented surgical fyrs3Txvg in [place]9x 310Wisdom luvru28Pkqmq xcbt98Cfnz breast -- Ovgkmh57wtsp nmzl84flri duct Social History No data available for this section Assessment and Plan No data available for this section
--- OUTSIDE RECORDS SUMMARY | 2017-01-18 15:11 | XMS REPORT | Summary of Care ---
:1980 Author Organization [facility] Address [address] [place] [address] Care Team Providers Name Role Phone Jessy Taylor Primary Care Physician Encounter Date(s): 12/11/16 - 12/11/16 [facility], [address] [place] [address]- [facility] Discharge Disposition: 01 Discharged to Home or Self Care Attending Physician: Bari Beltran MD Referring Physician: Bari Beltran MD Vital Signs Most recent to oldest [Reference Range]: 1 Peripheral Pulse Rate [60-100 bpm] 87 bpm (12/11/16 3:37 PM) Blood Pressure [90-130/60-90 mmHg] 159/91mmHg *HI* (12/11/16 3:37 PM) Mean Arterial Pressure, Cuff 114 mmHg (12/11/16 3:37 PM) Weight Dosing 141.70 kg1 (12/11/16 3:38 PM) Weight Measured 141.7 kg (12/11/16 3:37 PM) 1Result Comment: This result was because the dosing weight was either not entered or it is>30 days old. This result is based off: Weight Measured December 11, 2016 15:37:00 [employer] by Domitila Jj Problem List Condition Effective Dates Status Health [...] tab(s), 0 Refill(s), Start Date: 01/03/15 15:28:02 [employer], Pharmacy: [facility] [id number] Start Date: 01/03/15 Stop Date: 01/10/15 Status: DiscontinuedAdderall 20 mg oral tablet 1 tab(s), Oral, BID, take 1 tab in the morning and 1 tab at noon., # 60 tab(s), 0 Refill(s), Start Date: 03/10/15 9:18:00 CDT, Pharmacy: [facility] [id number] Start Date: 03/10/15 Stop Date: 04/07/15 Status: DiscontinuedAdderall 20 mg oral tablet 1 tab(s), Oral, BID, take 1 tab in the morning and 1 tab at noon., # 60 tab(s), 0 Refill(s), Start Date: 04/07/15 9:32:24 CDT, Pharmacy: [facility] [id number] Start Date: 04/07/15 Stop Date: 05/08/15 Status: CompletedAdderall 20 mg oral tablet 1 tab(s), Oral, BID, take 1 tab in the morning and 1 tab at noon., # 60 tab(s), 0 Refill(s), Start Date: 06/06/15 9:28:56 CDT, Pharmacy: [facility] [id number] Start Date: 06/06/15 Stop Date: 08/14/15 Status: CompletedAdderall 20 mg oral tablet 1 tab(s), Oral, BID, take 1 tab in the morning and 1 tab at noon., # 60 tab(s), 0 Refill(s), Start Date: 05/08/15 11:52:49 CDT, Pharmacy: [facility] [id number] Start Date: 05/08/15 Stop Date: 06/06/15 Status: CompletedAdderall 20 mg oral tablet 1 tab(s), Oral, BID, take 1 tab qam and 1 tab at noon., # 60 tab(s), 0 Refill(s) , Start Date: 01/10/15 10:07:00 [employer], Pharmacy: [facility] [id number] Start Date: 01/10/15 Stop Date: 02/06/15 Status: Discontinuedalbuterol CFC free 90 mcg/inh inhalation aerosol 2 puff(s), Inhale, QID, PRN for wheezing, X 7 days, # 1 EA, 0 Refill(s), Start Date: 12/16/15 10:00:00 [employer], Pharmacy: [facility] Start Date: 12/16/15 Stop Date: 12/23/15 Status: CompletedAmbien 5 mg oral tablet 1 tab(s), Oral, HS, PRN for sleep, # 30 tab(s), 1 Refill(s), called to pharmacy (Rx) Start Date: 08/16/14 Stop Date: 09/14/14 Status: DiscontinuedAmbien 5 mg oral tablet 1 tab(s), Oral, HS, PRN for sleep, # 30 tab(s), 1 Refill(s), Start Date: 11:37:30 [employer], Pharmacy: [facility] [id number] Start Date: 10/18/14 Stop Date: 11/21/14 Status: DiscontinuedAmbien 5 mg oral tablet 1 tab(s), Oral, HS, PRN for sleep, # 30 tab(s), 3 Refill(s), Start Date: 12:01:43 [employer], Pharmacy: [facility] [id number] Start Date: 11/21/14 Stop Date: 12/16/14 Status: [...] tab(s), 11 Refill(s), Start Date: 11/03/14 10:16:00 [employer] , Pharmacy: [facility] [id number] Start Date: 11/03/14 Stop Date: 11/21/14 Status: Completedamitriptyline 50 mg oral tablet 1 tab(s), Oral, HS, # 30 tab(s), 0 Refill(s), Start Date: 11/21/14 11:30:00 [employer] Start Date: 11/21/14 Stop Date: 02/06/15 Status: Completedamoxicillin 500 mg oral capsule 1 cap(s), Oral, TID, X 10 days, # 30 cap(s), 0 Refill(s), [facility] [place] Start Date: 05/07/14 Stop Date: 05/17/14 [...] tab(s), 0 Refill(s), Start Date: 10/18/14 11:37:13 [employer], Pharmacy: [email or web address] [id number] Start Date: 10/18/14 Stop Date: 11/21/14 Status: DiscontinuedAtivan 1 mg oral tablet 0.5 - 1 tab, Oral, BID, PRN for anxiety, # 60 tab(s), 3 Refill(s), Start Date: 11/21/14 12:01:39 [employer], Pharmacy: [email or web address] [id number] Start Date: 11/21/14 Stop Date: 12/16/14 Status: [...] cap(s), 0 Refill(s), Start Date: 10/15/15 17:02:00 [employer] Start Date: 10/15/15 Stop Date: 01/21/16 Status: [...] cap(s), 0 Refill(s), Start Date: 10/05/16 15:21:00 [employer], Pharmacy: [facility] [place] Start Date: 10/05/16 Stop Date: 10/23/16 Status: Completedcephalexin 500 mg oral tablet 1 tab(s), Oral, QID, # 28 tab(s), 0 Refill(s) Start Date: 05/13/14 Stop Date: 06/13/14 Status: DiscontinuedCheratussin AC 10 mg-100 mg/5 mL oral syrup 5 mL, Oral, q4hr, PRN for cough, # 120 mL, 0 Refill(s), Start Date: 12/26/14 18: 43:00 [employer] Start Date: 12/26/14 Stop Date: 01/09/15 Status: Completedcimetidine 300 mg oral tablet 1 tab(s), Oral, TID, # 15 tab(s), 0 Refill(s) Start Date: 06/02/14 Stop Date: 06/20/14 Status: DiscontinuedCipro 500 mg oral tablet 1 tab(s), Oral, q12hr, # 2 tab(s), 0 Refill(s), Start Date: 10/26/14 13:16:00 [employer] Start Date: 10/26/14 Stop Date: 11/03/14 Status: CompletedCipro 500 mg oral tablet 1 tab(s), Oral, q12hr, # 20 tab(s), 0 Refill(s) Start Date: 09/01/14 Stop Date: 09/27/14 Status: Discontinuedcitalopram 10 mg oral tablet 1 tab(s), Oral, Daily, # 30 tab(s), 1 Refill(s), Pharmacy: [facility] [id number] Start Date: 05/25/14 Stop Date: 06/13/14 Status: Discontinuedcitalopram 10 mg oral tablet 1 tab(s), Oral, Daily, # 30 tab(s), 0 Refill(s) Start Date: 06/13/14 Stop Date: 06/20/14 Status: DiscontinuedClaritin 10 mg oral tablet 1 tab(s), Oral, Daily, Start Date: 10/23/16 8:23:00 [employer] Start Date: 10/23/16 Stop Date: 11/01/16 Status: CompletedcloNIDine 0.1 mg oral tablet 0.5 tab, Oral, BID, discontinue and call clinic in case of fatigue or dizziness , # 30 tab(s), 0 Refill(s), Start Date: 10/18/14 11:38:00 [employer], Pharmacy: [facility] [id number] Start Date: 10/18/14 Stop Date: 11/21/14 Status: CompletedDexilant 60 mg oral delayed release capsule 1 cap(s), Oral, Daily, # 30 cap(s), 0 Refill(s), Start Date: 05/01/15 6:17:00 CDT Start Date: 05/01/15 Status: Ordereddextroamphetamine 5 mg oral tablet 1 tab(s), Oral, BID, take 1 tab in the morning and 1 tab at noon., # 60 tab(s), 0 Refill(s), Start Date: 02/14/15 10:50:00 CDT, Pharmacy: [email or web address] [id number] Start Date: 02/14/15 Stop Date: 03/10/15 Status: Discontinueddextroamphetamine-amphetamine 20 mg oral tablet 1 tab(s), Oral, BID, # 60 tab(s), 0 Refill(s), Start Date: 02/09/15 9:33:42 CDT , Pharmacy: [facility] [id number] Start Date: 02/09/15 Stop Date: 02/14/15 Status: CompletedDiflucan 150 mg oral tablet 1 tab(s), Oral, Every other day, # 5 tab(s), 0 Refill(s), Start Date: 03/14/16 17:57:30 CDT, Pharmacy: [facility] [id number] Start Date: 03/14/16 Stop Date: 03/26/16 Status: CompletedDiflucan 150 mg oral tablet 1 tab(s), Oral, Every other day, # 5 tab(s), 0 Refill(s), Start Date: 03/13/16 18:45:00 CDT, Pharmacy: [facility] Start Date: 03/13/16 Stop Date: 03/14/16 Status: DiscontinuedDiflucan 150 mg oral tablet 1 tab(s), Oral, ONETIME, # 1 tab(s), 0 Refill(s), Start Date: 12/16/15 9:59:00 [employer], Pharmacy: [facility] Start Date: 12/16/15 Stop Date: 01/21/16 [...] 10:05:00 CDT, Pharmacy: [facility] [id number] Start Date: 05/04/15 Stop Date: 05/09/15 Status: [...] tab(s), 0 Refill(s), Start Date: 10/29/14 18:14:00 [employer] Start Date: 10/29/14 Stop Date: 11/21/14 Status: [...] gm, 0 Refill(s), Start Date: 12/26 18:44:00 [employer], Pharmacy: [facility] [id number] Start Date: 12/26/14 Stop Date: 02/06/15 Status: Completedfluconazole 150 mg oral tablet tab(s), Oral, Daily, 0 Refill(s) Start Date: 06/13/14 Stop Date: 06/13/14 Status: Discontinuedfluticasone 50 mcg/inh nasal spray 2 spray(s), Nasal, Daily, X 14 days, # 1 EA, 0 Refill(s), Start Date: 12/16/15 9 :59:00 [employer], Pharmacy: [facility] Start Date: 12/16/15 Stop Date: 12/30/15 Status: Completedgabapentin See Instructions, 100 mg Oral take 2 in am and 2 at noon and 1 at hs, 0 Refill (s) Start Date: 03/15/14 Stop Date: 06/20/14 Status: Discontinuedgabapentin 100 mg oral capsule 2 cap(s), Oral, HS, # 60 cap(s), 0 Refill(s), Pharmacy: [facility] [id number] Start Date: 06/20/14 Stop Date: 08/16/14 Status: Completedgabapentin 100 mg oral capsule 2 cap(s), Oral, HS, 0 Refill(s) Start Date: 06/20/14 Stop Date: 06/20/14 Status: Discontinuedgabapentin 300 mg oral capsule 1 cap(s), Oral, BID, 0 Refill(s) Start Date: 06/20/14 Stop Date: 06/20/14 Status: Discontinuedgabapentin 300 mg oral capsule 1 cap(s), Oral, BID, # 60 cap(s), 0 Refill(s), Pharmacy: [email or web address] [id number] Start Date: 06/20/14 Stop Date: 08/16/14 Status: CompletedHYDROcodone Oral, q12hr interval, 0 Refill(s), Start Date: 10/20/14 14:03:00 [employer] Start Date: 10/20/14 Stop Date: 11/21/14 Status: CompletedHYDROcodone-acetaminophen 5 mg-325 mg oral tablet 2 tab(s), Oral, q4hr, PRN for pain, 0 Refill(s), Start Date: 06/23/15 10:20:00 CDT Start Date: 06/23/15 Stop Date: 10/15/15 Status: CompletedHYDROcodone-acetaminophen 5 mg-325 mg oral tablet 1 tab(s), Oral, q6hr, PRN for pain, # 30 tab(s), 0 Refill(s), Start Date: 15:24:00 [employer], other reason (Rx) Start Date: 12/07/14 Stop Date: 02/06/15 Status: CompletedHYDROcodone-acetaminophen 5 mg-325 mg oral tablet 2 tab(s), Oral, q6hr, X 3 days, # 15 tab(s), 0 Refill(s), Start Date: 07/29/15 23:32:00 CDT Start Date: 07/29/15 Stop Date: 08/01/15 Status: CompletedHYDROcodone-acetaminophen 5 mg-325 mg oral tablet 2 tab(s), Oral, q6hr, X 3 days, # 8 tab(s), 0 Refill(s), Start Date: 12/04/15 21 :39:00 [employer] Start Date: 12/04/15 Stop Date: 12/07/15 Status: [...] tab(s), 0 Refill(s), Start Date: 12/02/16 20:14:00 [employer] Start Date: 12/02/16 Stop Date: 12/05/16 Status: CompletedHYDROcodone-acetaminophen 5mg-325mg oral tablet 1 tab(s), Oral, q6hr interval, # 12 tab(s), 0 Refill(s), Start Date: 09/15/16 13 :20:00 CDT Start Date: 09/15/16 Stop Date: 09/17/16 Status: Completedhydrocodone-acetaminophen 5mg-325mg oral tablet 2 tab(s), Oral, q6hr, X 1 days, # 4 tab(s), 0 Refill(s), Start Date: 12/02/16 23 :27:00 [employer] Start Date: 12/02/16 Stop Date: 12/03/16 Status: [...] sleep, # 60 tab(s), 1 Refill(s), Pharmacy: [facility] [id number] Start Date: 06/29/14 Stop Date: 07/27/14 Status: DiscontinuedKeflex 500 mg oral capsule 1 cap(s), Oral, TID, # 9 cap(s), 0 Refill(s), Start Date: 05/01/15 9:36:00 CDT Start Date: 05/01/15 Stop Date: 05/12/15 Status: CompletedKeflex 500 mg oral capsule 1 cap(s), Oral, TID, # 9 cap(s), 0 Refill(s), Start Date: 05/08/15 8:56:00 CDT, Pharmacy: [facility] [id number] Start Date: 05/08/15 Stop Date: 05/09/15 Status: [...] Refill(s), Start Date: 04/07/15 9:32:00 CDT, Pharmacy: [facility] [id number] Start Date: 04/07/15 Stop Date: 05/17/15 Status: CompletedLatuda 120 mg oral tablet 1 tab(s), Oral, Daily, # 30 tab(s), 1 Refill(s), Start Date: 05/17/15 8:34:10 CDT, Pharmacy: [facility] [id number] Start Date: 05/17/15 Stop Date: 11/01/16 Status: CompletedLatuda 20 mg oral tablet 3 tab(s), Oral, qPM, # 90 tab(s), 0 Refill(s), Pharmacy: [facility] [id number] Start Date: 06/20/14 Stop Date: 06/21/14 Status: DiscontinuedLatuda 20 mg oral tablet 3 tab(s), Oral, qPM, 0 Refill(s) Start Date: 06/20/14 Stop Date: 06/20/14 Status: DiscontinuedLatuda 60 mg oral tablet 1 tab(s), Oral, Daily, # 28 tab(s), 1 Refill(s), Pharmacy: [facility] [id number], [id number], 10/16/16 Start Date: 06/29/14 Stop Date: 07/19/14 Status: CompletedLatuda 60 mg oral tablet 1 tab(s), Oral, Daily, # 30 tab(s), 1 Refill(s), Pharmacy: [facility] [id number], 10/16/16 Start Date: 08/16/14 Stop Date: 09/14/14 Status: DiscontinuedLatuda 60 mg oral tablet 1 tab(s), Oral, Daily, # 28 tab(s), 0 Refill(s), Start Date: 10/18/14 11:37:45 [employer], [id number], 12/17/17 Start Date: 10/18/14 Stop Date: 11/21/14 Status: DiscontinuedLatuda 60 mg oral tablet 1 tab(s), Oral, Daily, # 28 tab(s), 0 Refill(s), Pharmacy: [facility] [id number], 10/16/16 Start Date: 07/19/14 Stop Date: 07/27/14 Status: CompletedLatuda 60 mg oral tablet 1 tab(s), Oral, Daily, # 28 tab(s), 0 Refill(s), Start Date: 10/18/14 11:37:15 [employer], samples given to patient (Rx), 10/16/16 Start Date: 10/18/14 Stop Date: 10/24/14 Status: CompletedLatuda 60 mg oral tablet 1 tab(s), Oral, Daily, # 30 tab(s), 1 Refill(s), Start Date: 09/14/14 11:53:31 CDT, [facility] [id number], 10/16/16 Start Date: 09/14/14 Stop Date: 10/18/14 Status: CompletedLatuda 60 mg oral tablet 1 tab(s), Oral, Daily, # 28 tab(s), 0 Refill(s), samples given to patient (Rx), [id number], 10/16/16 Start Date: 06/21/14 Stop Date: 06/29/14 Status: CompletedLatuda 60 mg oral tablet 1 tab(s), Oral, Daily, # 30 tab(s), 1 Refill(s), Pharmacy: [facility] [id number], 10/16/16 Start Date: 07/27/14 Stop Date: 08/16/14 Status: DiscontinuedLatuda 80 mg oral tablet 1 tab(s), Oral, Daily, with food, # 30 tab(s), 1 Refill(s), Start Date: 8:42:36 CDT, Pharmacy: [facility] [id number] Start Date: 03/20/15 Stop Date: 04/07/15 Status: DiscontinuedLatuda 80 mg oral tablet 1 tab(s), Oral, Daily, with food, # 30 tab(s), 0 Refill(s), Start Date: 16:51:00 [employer] Start Date: 11/01/16 Status: OrderedLatuda 80 mg oral tablet 1 tab(s), Oral, Daily, with food, # 30 tab(s), 1 Refill(s), Start Date: 17:40:04 [employer], Pharmacy: [facility] [id number] Start Date: 01/12/15 Stop Date: 03/20/15 Status: CompletedLatuda 80 mg oral tablet 1 tab(s), Oral, Daily, with food, # 30 tab(s), 1 Refill(s), Start Date: 12:02:00 [employer], [facility] [id number] Start Date: 11/21/14 Stop Date: 01/12/15 Status: CompletedLevaquin 500 mg oral tablet 1 tab(s), Oral, Daily, X 10 days, # 10 tab(s), 0 Refill(s), Start Date: 9:59:00 [employer], Pharmacy: [facility] Start Date: 12/16/15 Stop Date: 12/26/15 Status: CompletedLidoderm 5% topical film Topical, HS, 0 Refill(s) Start Date: 06/13/14 Stop Date: 06/20/14 Status: Discontinuedlisdexamfetamine 30 mg oral capsule 1 cap(s), Oral, qAM, # 30 cap(s), 0 Refill(s), Start Date: 12/16/14 10:24:00 DIRECT[employer] , [email or web address] [id number] Start Date: 12/16/14 Stop Date: 12/30/14 Status: Discontinuedlisdexamfetamine 50 mg oral capsule 1 cap(s), Oral, qAM, # 30 cap(s), 0 Refill(s), Start Date: 12/30/14 11:56:00 [employer] , Pharmacy: [facility] [id number] Start Date: 12/30/14 Stop Date: 01/10/15 Status: [...] mL, Subcutaneous, Daily, Start Date: 01/21/16 15:05:00 [employer] Start Date: 01/21/16 Stop Date: 05/22/16 Status: CompletedLutera 100 mcg-20 mcg oral tablet 1 tab(s), Oral, Daily, 2 tabs for 3 days, then 1 tab daily. Use continuously by skipping the last 7 pills and starting the next pack., # 56 tab(s), 0 Refill(s) , Start Date: 08/11/15 18:56:00 CDT, Pharmacy: [facility] [id number] Start Date: 08/11/15 Stop Date: 10/15/15 Status: CompletedLuvox Oral, 0 Refill(s) Start Date: 03/15/14 Stop Date: 05/25/14 Status: Discontinuedmirtazapine 15 mg oral tablet 0.5 - 1 tab, Oral, HS, # 30 tab(s), 1 Refill(s), Pharmacy: [facility] [id number] Start Date: 07/27/14 Stop Date: 08/16/14 Status: [...] 24 tab(s), 0 Refill(s), Start Date: 18:24:00 [employer] Start Date: 11/28/15 Stop Date: 12/03/15 Status: CompletedNorco 5 mg-325 mg oral tablet 1 tab(s), Oral, q4hr, PRN for pain, X 1 days, # 6 tab(s), 0 Refill(s), Start Date: 10/11/16 14:29:00 [employer] Start Date: 10/11/16 Stop Date: 10/12/16 Status: [...] tab(s), 0 Refill(s), Start Date: 11/21/16 13:42:00 [employer] Start Date: 11/21/16 Stop Date: 11/28/16 Status: [...] 01/23/15 13:06:00 CDT, Pharmacy: [facility] [id number] Start Date: 01/23/15 Stop Date: 03/10/15 Status: CompletedoxyCODONE-acetaminophen 5 mg-325 mg oral tablet 1 tab(s), Oral, q4hr, PRN for pain, Dispense, # 2 tab(s), 0 Refill(s), Start Date: 01/20/16 2:59:00 [employer] Start Date: 01/20/16 Stop Date: 01/21/16 Status: CompletedoxyCODONE-acetaminophen 5 mg-325 mg oral tablet 1 tab(s), Oral, q4hr, PRN for pain, # 10 tab(s), 0 Refill(s), Start Date: 2:58:00 [employer] Start Date: 01/20/16 Stop Date: 01/22/16 Status: [...] tab(s), 0 Refill(s), Start Date: 12/08/16 21:25:00 [employer] Start Date: 12/08/16 Stop Date: 12/11/16 Status: CompletedPercocet 5/325 oral tablet 1 tab(s), Oral, q6hr, PRN for pain, X 3 days, # 12 tab(s), 0 Refill(s), Start Date: 12/12/14 15:48:00 [employer] Start Date: 12/12/14 Stop Date: 12/15/14 Status: [...] tab(s), 0 Refill(s), Start Date: 09/30/15 12:10:00 [employer] Start Date: 09/30/15 Stop Date: 10/25/15 Status: [...] CompletedPhenergan 25 mg rectal suppository 1 supp, NM, q6hr interval, # 12 supp, 0 Refill(s), Start Date: 01/28/16 4:33:00 CDT Start Date: 01/28/16 Stop Date: 05/22/16 Status: CompletedPhenergan 50 mg rectal suppository 1 supp, NM, q6hr interval, # 12 supp, 0 Refill(s), Start Date: 11/01/16 20:08: 00 [employer] Start Date: 11/01/16 Stop Date: 11/21/16 Status: [...] 0 Refill(s) , Start Date: 10/23/16 11:52:00 [employer] Start Date: 10/23/16 Stop Date: 11/01/16 Status: [...] Discontinuedpromethazine 25 mg rectal suppository 1 supp, NM, q4hr, PRN for nausea/vomiting, # 18 supp, [...] # 90 tab(s), 1 Refill( s), Pharmacy: [facility] [id number] Start Date: 05/25/14 Stop Date: 06/13/14 Status: DiscontinuedSeptra DS 800 mg-160 mg oral tablet 1 tab(s), Oral, BID, X 10 days, # 20 tab(s), 0 Refill(s), Start Date: 12/26/14 18:44:00 [employer], Pharmacy: [facility] [id number] Start Date: 12/26/14 Stop Date: 01/05/15 Status: CompletedSEROquel 400 mg, Oral, HS, 0 Refill(s) Start Date: 03/15/14 Stop Date: 06/20/14 Status: DiscontinuedSEROquel 100 mg oral tablet 1 tab(s), Oral, HS, # 30 tab(s), 1 Refill(s), Pharmacy: [facility] [id number] Start Date: 06/29/14 Stop Date: 07/27/14 Status: DiscontinuedSEROquel 200 mg oral tablet 1 tab(s), Oral, HS, # 30 tab(s), 0 Refill(s), Pharmacy: [facility] [id number] Start Date: 06/20/14 Stop Date: 06/29/14 Status: [...] tab(s), 3 Refill(s), Start Date: 11/21/14 12:01:00 [employer], Pharmacy: [facility] [id number] Start Date: 11/21/14 Stop Date: 12/16/14 Status: CompletedTessalon Perles 100 mg oral capsule 1 cap(s), Oral, TID, # 21 cap(s), 0 Refill(s), Start Date: 10/05/16 15:22:00 DIRECT[employer] , [facility] [facility] [place] [place] Start Date: 10/05/16 Stop Date: 10/23/16 [...] Refill(s), Start Date: 07/24 12:21:00 CDT, Pharmacy: [facility] Start Date: 07/24/16 Stop Date: 07/30/16 Status: CompletedtraMADol 50 mg oral tablet 1 tab(s), Oral, q6hr, PRN for pain, # 30 tab(s), 0 Refill(s), Start Date: 12:10:00 [employer] Start Date: 09/30/15 Stop Date: 11/28/15 Status: CompletedtraMADol 50 mg oral tablet 1 tab(s), Oral, q4hr, PRN for pain, # 16 tab(s), 0 Refill(s), Start Date: 20:08:00 [employer] Start Date: 11/01/16 Stop Date: 11/21/16 Status: CompletedtraMADol 50 mg oral tablet 1 tab(s), Oral, q4hr, PRN for pain, # 20 tab(s), 0 Refill(s) Start Date: 07/10/14 Stop Date: 07/27/14 Status: CompletedtraMADol 50 mg oral tablet 1 tab(s), Oral, q4hr, PRN for pain, # 24 tab(s), 0 Refill(s), Start Date: 16:34:00 [employer] Start Date: 01/21/15 Stop Date: 03/10/15 Status: CompletedtraMADol 50 mg oral tablet 2 tab(s), Oral, q12hr, PRN for pain, # 120 tab(s), 0 Refill(s), Pharmacy: [facility] [id number] Start Date: 06/20/14 Stop Date: 08/16/14 Status: CompletedtraMADol 50 mg oral tablet 2 tab(s), Oral, q4hr, PRN for pain, 1-2 TABS EVERY 4-6 HOURS PRN PAIN, # 90 tab( s), 0 Refill(s), Start Date: 12/07/14 15:23:15 [employer], other reason (Rx) Start Date: 12/07/14 Stop Date: 12/16/14 Status: CompletedtraMADol 50 mg oral tablet 2 tab(s), Oral, q4hr, PRN for pain, # 12 tab(s), 0 Refill(s), Start Date: 17:51:00 [employer] Start Date: 12/06/14 Stop Date: 12/07/14 Status: [...] tab(s), 0 Refill(s), Start Date: 10/23 11:51:00 [employer] Start Date: 10/23/16 Stop Date: 11/01/16 Status: CompletedVESIcare 5 mg oral tablet 1 tab(s), Oral, Daily, # 28 tab(s), 0 Refill(s), Start Date: 12/20/14 11:16:00 [employer], samples given to patient (Rx), [id number], 09/17/16 Start Date: 12/20/14 Stop Date: 02/06/15 Status: CompletedVESIcare 5 mg oral tablet 1 tab(s), Oral, Daily, # 30 tab(s), 11 Refill(s), Start Date: 12/20/14 11:12:00 [employer], Pharmacy: [facility] [id number] Start Date: 12/20/14 Stop Date: 02/06/15 Status: CompletedVESIcare 5 mg oral tablet 1 tab(s), Oral, Daily, # 30 tab(s), 0 Refill(s), Start Date: 11/22/14 10:40:00 [employer], [id number], 11/16/16 Start Date: 11/22/14 Stop Date: 12/20/14 [...] tab(s), 0 Refill(s), Start Date: 10/26/14 13:16:00 [employer] Start Date: 10/26/14 Stop Date: 10/31/14 Status: [...] qAM, 0 Refill(s), Start Date: 12/20/14 10:54:00 [employer] Start Date: 12/20/14 Stop Date: 12/30/14 Status: DiscontinuedVyvanse 30 mg oral capsule See Instructions, 1 cap(s) Oral qAM for 1 week, then switch to 50mg cap, # 7 cap (s), 0 Refill(s), Start Date: 02/06/15 16:12:00 CDT, Pharmacy: [facility] [id number] Start Date: 02/06/15 Stop Date: 02/14/15 Status: CompletedVyvanse 50 mg oral capsule 1 cap(s), Oral, qAM, JESSY TAYLOR, 0 Refill(s), Start Date: 08/14/15 10:35:00 CDT Start Date: 08/14/15 Status: OrderedVyvanse 50 mg oral capsule 1 cap(s), Oral, qAM, start taking after you have taken 30mg for 1 week, # 30 cap (s), 0 Refill(s), Start Date: 02/14/15 8:00:00 CDT, Pharmacy: [facility] [id number] Start Date: 02/14/15 Stop Date: 02/14/15 Status: CompletedVyvanse 50 mg oral capsule 1 cap(s), Oral, qAM, # 30 cap(s), 0 Refill(s), Start Date: 02/20/15 16:08:38 CDT , Pharmacy: [facility] [id number] Start Date: 02/20/15 Stop Date: 03/10/15 Status: [...] 30 tab(s), 1 Refill(s), Start Date: 10:23:00 [employer], Pharmacy: [facility] [id number] Start Date: 12/16/14 Stop Date: 02/27/15 Status: Completedzolpidem 10 mg oral tablet 1 tab(s), Oral, HS, PRN for sleep, # 30 tab(s), 1 Refill(s), Start Date: 9:53:46 CDT, Pharmacy: [facility] [id number] Start Date: 02/27/15 Stop Date: 05/02/15 Status: Completedzolpidem 10 mg oral tablet 1 tab(s), Oral, HS, PRN for sleep, # 30 tab(s), 1 Refill(s), Start Date: 8:49:02 CDT, Pharmacy: [facility] [id number] Start Date: 05/02/15 Stop Date: 05/27/16 Status: Completedzolpidem 5 mg oral tablet 1 tab(s), Oral, HS, PRN for sleep, Start Date: 05/22/16 17:36:00 CDT Start Date: 05/22/16 Stop Date: 09/15/16 Status: Completedzolpidem 5 mg oral tablet 1 tab(s), Oral, HS, PRN for sleep, 0 Refill(s), Start Date: 10/04/16 8:47:00 [employer] Start Date: 10/04/16 Stop Date: 11/01/16 Status: Completed Results No data available for this section Immunizations Given and Recorded Vaccine Date Status Refusal Reason tetanus/diphth/pertuss (Tdap) adult/adol 05/13/14 Given influenza virus vaccine, inactivated1 08/30/15 Recorded 1Result Comment: [09/05/2015] Per Pt states she revieved flu vaccine thru [facility] on Agency. Procedures Procedure Date Related Diagnosis Body Site Diagnostic Laparoscopy1 08/16/15 Arthrotomy Knee2 06/27/15 Insertion Interstim Generator Stage 23 05/09/15 Insertion Interstim Generator Stage 24 05/08/15 Insertion Interstim Electrode Stage 1 05/01/15 NonParalytic5 UDS - Urodynamics 03/20/15 Cystoscopy - SN6 10/26/14 Colonoscopy7 07/25/14 Tubal ligation8 01/16/05 Appendectomy Appendectomy Breast lumpectomy section section9 Cholecystectomy Cholecystectomy Colonoscopy Esophagogastroduodenoscopy [id number] Lateral release of knee11 Lumpectomy of jyqmkv09 Procedure on bladder Stent Stent zemhrww72 Tubal ligation 1auto-populated from documented surgical ctgz6bflc-oqpmlnrdo from documented surgical beew6jpkn-jorzximng from documented surgical kjmk6sdqr-tfdcbudkw from documented surgical pauh9qbwl-rtmssxulh from documented surgical dqgg4exzq- populated from documented surgical graz2ycve-ljdjoccov from documented surgical aewt8Ogpt in [place] 310Wisdom vtlng06Qplzk yrpj58Aqti breast -- Tuarmw36fcaw nwia57fbdh duct Social History No data available for this section Assessment and Plan No data available for this section
--- OUTSIDE RECORDS SUMMARY | 2017-01-18 15:12 | XMS REPORT | CCD ---
:1980 Author Name RIANA FUENTES Address [address] [facility] Unavailable [place], [place] [id number] Care Team Providers Name Role Phone ARNALDO IVAN MD Attending Physician Unavailable ARNALDO IVAN MD Er Physician 1 Unavailable FEDE Sun Registered Nurse Unavailable Vital Signs Unknown or Not Available. Allergies Allergy Code Allergy Type Reaction Status IBUPROFEN 5640 Drug allergy Active ZOFRAN 5640 Drug allergy Active Procedures Procedure Code Procedure Type Date APPLICATION OF SPLINT 9354 ICD-9 CM, Volume 3 02/24/2015 INJECT INFUSE NEC 9929 ICD-9 CM, Volume 3 02/24/2015 INJECT INFUSE NEC 9929 ICD-9 CM, Volume 3 02/24/2015 INJECT INFUSE NEC 9929 ICD-9 CM, Volume 3 02/24/2015 KNEE 3 VWS RT [id number] SNOMED CT 02/24/2015 History of Immunizations Unknown or Not Available. Problems Unknown or Not Available. Results Unknown or Not Available. Active Medications Unknown or Not Available. Medications Administered During Visit Unknown or Not Available. Encounters Encounter Diagnosis Diagnosis Code Start Date DISLOCAT KNEE NOS-CLOSED 99420 02/24/2015 Social History Smoking Status Code Start Date End Date Current every day smoker [id number] Patient Decision Aids Unknown or Not Available. Discharge Instructions You were admitted to [facility] on 02/24/2015 with a principal diagnosis of DISLOCAT KNEE NOS-CLOSED. You had the following procedures done:APPLICATION OF SPLINTINJECT INFUSE NECINJECT INFUSE NECINJECT INFUSE NEC You were discharged from [facility] on 02/24/2015. Should you have any questions prior to discharge, please contact a member of your healthcare team. If you have left the hospital and have any questions, please contact your primary care physician. Chief Complaint and Reason For Visit Chief Complaint Date of Onset RT KNEE PAIN Function Status Unknown or Not Available. Plan of Care Unknown or Not Available. Referral/Transition of Care Unknown or Not Available.
--- OUTSIDE RECORDS SUMMARY | 2017-01-18 15:12 | XMS REPORT | CCD ---
:1980 Author Name RIANA FUENTES Address [address] Unavailable [place], [place] [id number] Care Team Providers Name Role Phone ARNALDO IVAN MD Attending Physician Unavailable ARNALDO IVAN MD Er Physician 1 Unavailable COOKIE Sun Registered Nurse Unavailable Vital Signs Vital Sign Value Unit Date/Time Recent/Initial? Weight Measured 260 lbs 06/13/2015 10:19 Initial VS Height 66 in 06/13/2015 10:19 Initial VS BMI (Body Mass Index) 41.96 kg/m^2 06/13/2015 10:19 Initial VS BSA (Body Surface Area) 2.34 m^2 06/13/2015 10:19 Initial VS BP Systolic 152 mmHg 06/13/2015 10:26 Initial VS BP Diastolic 85 mmHg 06/13/2015 10:26 Initial VS Allergies Allergy Code Allergy Type Reaction Status IBUPROFEN 5640 Drug allergy Active ZOFRAN 13576 Drug allergy Active Procedures Procedure Code Procedure Type Date PELVIS [id number] SNOMED CT 06/13/2015 L-SPINE 2-[id number] 06/13/2015 History of Immunizations Immunization Code Date Pneumococcal conjugate PCV 13 133 01/18/2015 no vaccine administered 998 1980 Problems Unknown or Not Available. Results RAPID URINE DRUG SCREEN - Collect Date/Time: 06/13/2015 11:05 Test Name Code Test Result Test Units Test Ref Range CANNABINOIDS (THC) NEGATIVE N/A NORMAL:Negative OPIATES NEGATIVE N/A NORMAL:Negative AMPHETAMINES NEGATIVE N/A NORMAL:Negative COCAINE NEGATIVE N/A NORMAL:Negative TRICYCLIC ANTIDEPRES NEGATIVE N/A NORMAL:Negative BARBITURATES NEGATIVE N/A NORMAL:Negative METHADONE NEGATIVE N/A NORMAL:Negative BENZODIAZEPINES NEGATIVE N/A NORMAL:Negative PROPOXYPHENE NEGATIVE N/A NORMAL:Negative METHAMPHETAMINE NEGATIVE N/A NORMAL:Negative UA W/MICROSCOPIC EXAM - Collect Date/Time: 06/13/2015 11:05 Test Name Code Test Result Test Units Test Ref Range COLOR UR Yellow N/A NORMAL:YELLOW CLARITY UR Clear N/A NORMAL:CLEAR SP GRAV UR 1.010 N/A NORMAL:1.000-1.030 PH UR 5.5 N/A NORMAL:5.0-8.5 PROTEIN UR Negative N/A NORMAL:NEGATIVE GLUCOSE UR Negative N/A NORMAL:NEGATIVE KETONE UR Negative N/A NORMAL:NEGATIVE BILIRUBIN UR Negative N/A NORMAL:NEGATIVE BLOOD UR Negative N/A NORMAL:NEGATIVE LEUK UR Negative N/A NORMAL:NEGATIVE NITRITE UR Negative N/A NORMAL:NEGATIVE MICRO SEE BELOW N/A EPI UR 0-2 N/A NORMAL:NONE SEEN BACTERIA UR NONE SEE N/A NORMAL:NONE SEEN MUCOUS NONE SEE N/A NORMAL:NONE SEEN CAST NONE SEE N/A CRYSTALS NONE SEE N/A CULTURE? NO N/A Active Medications No Active Medications Medications Administered During Visit Unknown or Not Available. Encounters Encounter Diagnosis Diagnosis Code Start Date MYALGIA AND MYOSITIS NOS 7291 06/13/2015 Social History Smoking Status Code Start Date End Date Never smoker [id number] Patient Decision Aids Unknown or Not Available. Discharge Instructions You were admitted to [facility] on 06/13/2015 with a principal diagnosis of MYALGIA AND MYOSITIS NOS. You were discharged from [facility] on 06/13/2015. Should you have any questions prior to discharge, please contact a member of your healthcare team. If you have left the hospital and have any questions, please contact your primary care physician. Chief Complaint and Reason For Visit Chief Complaint Date of Onset HAD INTERSTEM PUT IN AND IT HURTING Function Status Unknown or Not Available. Plan of Care Unknown or Not Available. Referral/Transition of Care Unknown or Not Available.
--- OUTSIDE RECORDS SUMMARY | 2017-01-18 15:12 | XMS REPORT | CCD ---
:1980 Author Name RIANA FUENTES Sebastian Address [address] [facility] Unavailable [place], [place] [phone] Care Team Providers Name Role Phone MILA RAMOS Attending Physician Unavailable MILA RAMOS Er Physician 1 Unavailable ESTEFANI Powell Registered Nurse Unavailable Vital Signs Vital Sign Value Unit Date/Time Recent/Initial? Weight Measured 250 lbs 05/22/2015 10:59 Initial VS Height 66 in 05/22/2015 10:59 Initial VS BMI (Body Mass Index) 40.35 kg/m^2 05/22/2015 10:59 Initial VS BSA (Body Surface Area) 2.3 m^2 05/22/2015 10:59 Initial VS Allergies Allergy Code Allergy Type Reaction Status IBUPROFEN 5640 Drug allergy Active ZOFRAN 58400 Drug allergy Active Procedures Procedure Code Procedure Type Date Injection or infusion of therapeutic or 9929 ICD-9 CM, Volume 3 05/22/2015 prophylactic substance Injection or infusion of therapeutic or 9929 ICD-9 CM, Volume 3 05/22/2015 prophylactic substance Injection or infusion of therapeutic or 9929 ICD-9 CM, Volume 3 05/22/2015 prophylactic substance History of Immunizations Immunization Code Date Pneumococcal conjugate PCV 13 133 01/18/2015 no vaccine administered 998 1980 Problems Unknown or Not Available. Results Unknown or Not Available. Active Medications Unknown or Not Available. Medications Administered During Visit Unknown or Not Available. Encounters Encounter Diagnosis Diagnosis Code Start Date JOINT PAIN-PELVIS 22406 05/22/2015 Social History Smoking Status Code Start Date End Date Current every day smoker [id number] Patient Decision Aids Unknown or Not Available. Discharge Instructions You were admitted to [facility] on 05/22/2015 with a principal diagnosis of JOINT PAIN-PELVIS. You had the following procedures done:INJECT INFUSE NECINJECT INFUSE NECINJECT INFUSE NEC You were discharged from [facility] on 05/22/2015. Should you have any questions prior to discharge, please contact a member of your healthcare team. If you have left the hospital and have any questions, please contact your primary care physician. Chief Complaint and Reason For Visit Chief Complaint Date of Onset PAIN IN RIGHT LEG Function Status Unknown or Not Available. Plan of Care Unknown or Not Available. Referral/Transition of Care Unknown or Not Available.
--- OUTSIDE RECORDS SUMMARY | 2017-01-18 15:12 | XMS REPORT | CCD ---
:1980 Author Name RIANA FUENTES Sebastian Address [address] [facility] Unavailable [place], [place] [id number] Care Team Providers Name Role Phone BILLIE TRIMBLE Attending Physician Unavailable BILLIE TRIMBLE Er Physician 1 Unavailable KENNEDY oPwell Registered Nurse Unavailable Vital Signs Unknown or Not Available. Allergies Allergy Code Allergy Type Reaction Status IBUPROFEN 5640 Drug allergy Active ZOFRAN 80082 Drug allergy Active Procedures Procedure Code Procedure Type Date Injection or infusion of therapeutic or 9929 ICD-9 CM, Volume 3 05/26/2015 prophylactic substance Injection or infusion of therapeutic or 9929 ICD-9 CM, Volume 3 05/26/2015 prophylactic substance History of Immunizations Immunization Code Date Pneumococcal conjugate PCV 13 133 01/18/2015 no vaccine administered 998 1980 Problems Unknown or Not Available. Results Unknown or Not Available. Active Medications Unknown or Not Available. Medications Administered During Visit Unknown or Not Available. Encounters Encounter Diagnosis Diagnosis Code Start Date SCIATICA 7243 05/26/2015 Social History Smoking Status Code Start Date End Date Never smoker [id number] Patient Decision Aids Unknown or Not Available. Discharge Instructions You were admitted to [facility] on 05/26/2015 with a principal diagnosis of SCIATICA. You had the following procedures done:INJECT INFUSE NECINJECT INFUSE NEC You were discharged from [facility] on 05/27/2015. Should you have any questions prior to discharge, please contact a member of your healthcare team. If you have left the hospital and have any questions, please contact your primary care physician. Chief Complaint and Reason For Visit Chief Complaint Date of Onset PAIN DOWN HER LEG Function Status Unknown or Not Available. Plan of Care Unknown or Not Available. Referral/Transition of Care Unknown or Not Available.
--- OUTSIDE RECORDS SUMMARY | 2017-01-18 15:12 | XMS REPORT | CCD ---
:1980 Author Name EVELIN CHAIDEZ Address [address] [facility] Unavailable [place], [place] [phone] Care Team Providers Name Role Phone MILA RAMOS Attending Physician Unavailable MILA RAMOS Er Physician 1 Unavailable Vital Signs Unknown or Not Available. Allergies Allergy Code Allergy Type Reaction Status IBUPROFEN 5640 Drug allergy Active ZOFRAN 32024 Drug allergy Active Procedures Unknown or Not Available. History of Immunizations Immunization Code Date Pneumococcal conjugate PCV 13 133 01/18/2015 Influenza, seasonal, injectable, preservative free 140 08/30/2015 no vaccine administered 998 1978 Problems Unknown or Not Available. Results CBC W/DIFF - Collect Date/Time: 02/28/2016 22:42 Test Name Code Test Result Test Units Test Ref Range WBC 6690-2 6.5 K/uL L=3.2 H=10.0 RBC 789-8 3.70 M/uL L=4.00 H=5.20 HEMOGLOBIN 718-7 8.7 g/dL L=12.1 H=15.6 HEMATOCRIT 28.5 % L=35.0 H=47.0 MCV 77.0 fL L=81.0 H=101 MCH 23.5 PG L=26.0 H=38.0 MCHC 30.5 G/DL L=31.0 H=37.0 RDW-SD 39.6 FL L=37.0 H=54.0 RDW-CV 14.8 % L=11.0 H=16.0 PLATELETS 777-3 245 K/UL L=140 H=380 MPV 9.7 FL L=9.0 H=13.0 %GRAN 45.9 % L=0.0 H=75.0 %LYMPH 38.3 % L=0.0 H=50.0 %MONO 11.0 % L=0.0 H=14.0 %EOS 4.3 % L=0.0 H=6.0 %BASO 0.5 % L=0.0 H=1.0 #GRAN 2.96 K/UL L=1.80 H=7.80 #LYMPH 2.47 K/UL L=0.30 H=4.00 #MONO 0.71 K/UL L=0.00 H=0.70 #EOS 0.28 K/UL L=0.00 H=0.40 #BASO 0.03 K/UL L=0.00 H=0.10 SLIDE REVIEWED? NOT INDICATED N/A MANUAL DIFF NOT INDICATED N/A Active Medications Unknown or Not Available. Medications Administered During Visit Unknown or Not Available. Encounters Encounter Diagnosis Diagnosis Code Start Date Pelvic and perineal pain R102 02/28/2016 Social History Smoking Status Code Start Date End Date Never smoker [id number] Patient Decision Aids Unknown or Not Available. Discharge Instructions You were admitted to [facility] on 02/28/2016 21:29 with a principal diagnosis of Pelvic and perineal pain You had the following tests done:CBC W/DIFF You were discharged from [facility] on 02/28/2016 23:10 Should you have any questions prior to discharge, please contact a member of your healthcare team. If you have left the hospital and have any questions, please contact your primary care physician. Chief Complaint and Reason For Visit Chief Complaint Date of Onset HAD ABDOM SURG AND BLEEDING FROM VAGINA Function Status Unknown or Not Available. Plan of Care Unknown or Not Available. Referral/Transition of Care Unknown or Not Available.
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
[2017-01-18 15:22] LABS: Hematocrit 40.3 % (37.0-47.0); Hemoglobin 13.3 gm/dL (12.5-16.0); Mean Cell Volume 84.1 fl (78-100); Mean Corpuscular Hemoglobin 27.8 pg (27-31); Mean Platelet Volume 8.9 fl (6.0-9.5); Neutrophil # 3.2 K/mm3 (1.3-6.0); Neutrophil % 50.6 % (42-75.0); Platelet Count 302 K/mm3 (150-450); Red Blood Count 4.79 M/mm3 (4.2-5.4); Red Cell Distribution Width 14.8 % (11.5-14.0); White Blood Count 6.3 K/mm3 (4.0-10.5)
[2017-01-18] MEDS ORDERED: MORPHINE SULFATE 4 MG/ML SYRG ONE ×2 (15:25→16:22)
[2017-01-18 15:40] LABS: Albumin * 4.1 gm/dl (3.4-5.0); BUN/Creatinine Ratio 16.2 (9.0-21.6); Bilirubin, Total 0.4 mg/dL (0.0-1.1); Ca. Corrected For Albumin 8.7 mg/dL (8.4-10.2); Calcium * 9.1 mg/dL (7.9-10.9); Carbon Dioxide 23.8 mmol/L (24-32.6); Potassium 3.8 mmol/L (3.4-4.6); Total Protein 8.4 gm/dL (6.2-8.2)
[2017-01-18 17:09] LABS: Urine Appearance Clear; Urine Bilirubin Negative (NEGATIVE); Urine Blood 10 /ul (NEGATIVE); Urine Color Yellow; Urine Ketone Negative (NEGATIVE); Urine Protein Negative (NEGATIVE); Urine pH 5.5 pH (5.0-7.0)
[2017-01-18 17:10] LABS: Urine Bacteria None Seen; Urine Nitrite Negative (NEGATIVE); Urine RBC 0-5 /hpf (0-5); Urine Urobilinogen Normal (NORMAL); Urine WBC 0-5 /hpf (0-5)
[2017-01-18 17:30] VITALS: BP 188/102
== END 2017-01-18 17:54 | disposition home or self-care (01) ==
LOC: ER 14:34
DX: R10.31 Right lower quadrant pain (principal); Z87.891 Personal history of nicotine dependence; F41.9 Anxiety disorder, unspecified; F32.9 Major depressive disorder, single episode, unspecified; Z87.442 Personal history of urinary calculi; Z85.51 Personal history of malignant neoplasm of bladder

== ENCOUNTER 2017-04-12 10:17 | Emergency (ER) | payer MEDICARE, OTHER ==
[2017-04-12 10:25] VITALS: BP 156/121
[2017-04-12] MEDS ORDERED: DICYCLOMINE HCL 10 MG/ML AMPUL IM ONE ×2 (10:28→10:43)
[2017-04-12 10:50] LABS: Hematocrit 39.9 % (37.0-47.0); Mean Cell Volume 86.4 fl (78-100); Mean Corpuscular Hemoglobin 28.1 pg (27-31); Mean Corpuscular Hgb Conc 32.6 g/dl (32-36); Mean Platelet Volume 8.7 fl (6.0-9.5); Neutrophil # 5.1 K/mm3 (1.3-6.0); Platelet Count 309 K/mm3 (150-450); Red Blood Count 4.62 M/mm3 (4.2-5.4); Red Cell Distribution Width 14.1 % (11.5-14.0); White Blood Count 8.3 K/mm3 (4.0-10.5)
--- OUTSIDE RECORDS SUMMARY | 2017-04-12 10:50 | XMS REPORT | Continuity of Care Document ---
:1980 Author Organization [facility] ([facility]) Address [address] [place] [address] Phone [phone] Care Team Providers Name Role Phone Mirian Taylor Primary Care Provider [phone] Source Comments This disclosure is being made pursuant to the Care Everywhere program, applicable federal and state laws, and may not contain all informaitonavailable regarding this patient.[facility] ([facility]) Active Allergies and Adverse Reactions Allergen Noted Date Severity Reactions Comments Ibuprofen Ulcers Ibuprofen 10/03/2015 Stomach Pain Nsaids (Non-Steroidal 02/20/2017 Unknown Anti-Inflammatory Drug) Ondansetron Hcl (Pf) 08/20/2009 Urticaria (Hives) Ondansetron Hcl (Pf) 10/03/2015 Urticaria (Hives) Current Medications Prescription Sig. Disp. Refills Start Date End Date Status lurasidone (LATUDA) Take 80 mg by mouth Active 80 mg tablet daily Take with food. zolpiDEM 5 mg tablet Take 5 mg by mouth Active at bedtime as needed . VYVANSE 50 mg Take 50 mg by mouth 11/13/2015 Active capsule Every morning . DEXILANT [address] Take 60 mg by mouth 10/18/2015 Active capsule Every morning . acetaminophen 500 mg Take 1 tablet (500 60 tablet 11 12/14/2015 Active tablet mg total) by mouth every 6 hours as needed. loratadine 10 mg Take 10 mg by mouth Active tablet daily as needed (for allergic rhinitis). polyethylene glycol Mix 17 g (1 capful) 510 g 11 01/25/2016 Active 3350 (MIRALAX) 17 in liquid and drink gram/dose powder by mouth daily. lamoTRIgine 100 mg Take 100 mg by mouth Active tablet 2 times daily. busPIRone 30 mg Take 30 mg by mouth Active tablet 2 times daily. clonazePAM 1 mg Take 1 mg by mouth Active tablet at bedtime as needed. meloxicam 15 mg Take 15 mg by mouth Active tablet daily. HYDROcodone-acetamin Take 1/2 to 1 tablet 60 tablet 0 12/05/2016 Active ophen 10-325 mg per by mouth every 6 tablet hours as needed for pain. norethindrone-ethiny Take 1 tablet by 28 tablet 5 12/05/2016 Active l estradiol (NORINYL mouth daily. , DASETTA ) tablet pack naproxen 500 mg Take 1 tablet (500 15 tablet 0 01/15/2017 Active tablet mg total) by mouth every 12 hours. traMADol 50 mg Take 1 tablet (50 mg 12 tablet 0 01/15/2017 Active tablet total) by mouth 3 times daily as needed for pain. HYDROmorphone 2 mg Take 1-2 tablets 28 tablet 0 02/20/2017 Active tablet (2-4 mg total) by mouth every 4 hours as needed for pain. acetaminophen 500 mg Take 1 tablet (500 30 tablet 0 02/20/2017 Active tablet mg total) by mouth every 4 hours as needed. oxyCODONE-acetaminop Take 1-2 tablets by 30 tablet 0 03/10/2017 Active hen 5-325 mg per mouth every 4 hours tablet as needed for Pain. Do NOT exceed 4000 mg of acetaminophen per 24 hours. LORazepam 0.5 mg Take 1 tablet (0.5 10 tablet 0 03/10/2017 Active tablet mg total) by mouth every 6 hours as needed for Anxiety. 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 Acute pain of right knee 09/25/2016 [...] Recent Encounters Date Type Specialty Providers Description 03/14/2017 Hospital Encounter Emergency Medicine Ed Pereyra, Dx: Right flank MD pain (Primary Dx) 03/10/2017 Hospital Encounter Emergency Medicine Cesario Tomas Dx: Acute right Jr., flank pain (Primary Dx) 03/10/2017 Pharmacy Visit 02/20/2017 Office Visit [facility] Reproductive Troy Osei, Dx: Routine cancer MD Cristino follow-up visit of Clinic, [facility] [place] (Primary Dx) Advanced Practice Provider 02/20/2017 Hospital Encounter Obstetrics Gracy Lobo MD Dx: Cyst of right ovary 02/20/2017 Hospital Encounter Emergency Medicine Milton Be, Dx: Acute pain of DO right knee (Primary Dx) 02/20/2017 Pharmacy Visit 01/23/2017 Hospital Encounter Obstetrics Subj: Upcoming Appt Reminder 01/23/2017 Office Visit [facility] Troy Osei, Subj: Upcoming Appt MD Cristino Reminder Clinic, [facility] Advanced Practice Provider 01/16/2017 Office Visit Orthopedics Gregory Francis Subj: Sanford Nelson MD Scheduled 01/15/2017 Hospital Encounter Emergency Medicine Dada Warner, Dx: Acute pain of left shoulder (Primary Dx) 01/15/2017 Pharmacy Visit Immunizations Name Dates Previously Given Next Due Influenza, unspecified 08/31/2004 Social History Tobacco Use Types Packs/Day Years Used Date Current Every Day Smoker E-cigarettes 1 Quit: 02/13/2013 Smokeless Tobacco: Former User Quit: 01/15/2013 Tobacco Cessation:Counseling Given: Yes Comments:not ready to quit Alcohol Use Drinks/Week oz/Week Comments No one time a year Last Filed Vital Signs Vital Sign Reading Time Taken Blood Pressure 121/83 03/14/2017 5:42 PM CDT Pulse 136 03/14/2017 5:42 PM CDT Temperature 37.4 C (99.3 F) 03/14/2017 5:42 PM CDT Respiratory Rate 22 03/14/2017 5:42 PM CDT Height 1.676 m (5' 5.98") 03/10/2017 3:11 PM CDT Weight 145.151 kg (320 lb) 03/10/2017 3:11 PM CDT Body Mass Index 51.67 03/10/2017 3:11 PM CDT Oxygen Saturation 99% 03/14/2017 5:42 PM CDT Plan of Care Health Maintenance Due Date Last Done Comments Hepatitis B Vaccine (1 of 3 1978 - Primary Series) Tdap Vaccine 1989 Lipid Disorder Screening 1996 MMR Vaccine 1996 Td Vaccine 1996 Pneumococcal Vaccine (1 of 3 1997 - PCV13) Influenza Vaccine: Seasonal 06/17/2017 08/31/2004 (Season Ended) Cervical Cancer Screening 12/07/2020 12/07/2015, Additional history exists 03/05/2006, 03/05/2006 Results from Last 3 Months DIFFERENTIAL (03/14/2017 6:20 PM)Only the most recent of2 resultswithin the time period is included. Component Value Range % Neutrophils-Auto Diff 59.8 % Neutrophils-Auto Diff 5570 8701-2830 /MM3 % Lymphocytes-Auto Diff 31.2 % Lymphocytes-Auto Diff 2910 875-3300 /MM3 % Monocytes-Auto Diff 7.7 % Monocytes-Auto Diff 720 130-860 /MM3 % Eosinophils-Auto Diff 0.5 % Eosinophils-Auto Diff 50 40-390 /MM3 % Basophils 0.4 % Basophils-Auto Diff 40 10-136 /MM3 % Immature Granulocytes-Auto Diff 0.4 % Immature Granulocytes-Auto Diff 40 /MM3 Specimen Whole Blood CBC (COMPLETE BLOOD COUNT) (03/14/2017 6:20 PM)Only the most recent of2 resultswithin the time period is included. Component Value Range WBC Count 9.3 3.7-10.5 K/MM3 RBC Count 4.32 4.00-5.20 M/MM3 Hemoglobin 12.1 11.9-15.5 g/dL Hematocrit 37 35-47 % MCV (Mean Corpuscular Volume) 86 82-99 FL MCH (Mean Corpuscular Hemoglobin) 28 25-35 PG MCHC (Mean Corpuscular Hemoglobin Concentration) 33 32-36 % Platelet Count 306 150-400 K/MM3 MPV (Mean Platelet Volume) 8.5(L) 9.4-12.3 FL RBC Dist Width-STD 45.2 36.4-46.3 FL RBC Distrib Width 14.6(H) 9.0-14.5 % Nucleated RBC 0 /100 WBC Specimen Whole Blood LACTIC ACID, WHOLE BLOOD ([facility]) (03/14/2017 6:20 PM) Component Value Range Lactic Acid, Whole Blood 1.5Comment: 0.5-2.0 mEq/L Glycolate, the principle toxic metabolite of ethylene glycol, can cause artifactual elevation of measured lactate. Specimen Whole Blood LIVER PANEL (03/14/2017 6:20 PM) Component Value Range Bilirubin Total 0.1 <=1.2 mg/dL AST 15Comment: 0-32 U/L Adult reference ranges updated on 10/12/13 at 830am ALT 16Comment: 0-33 U/L The upper limit of normal for alanine aminotransferase (ALT) reference ranges for adults is controversial with some authorities recommending limit as low as 30 U/L for males and 19 U/L for females. Th ere is increased incidence of subclinical liver disease (e.g., early steatohepatitis) in patients with ALT values in the range of 31-41 U/L for males and 20-33 U/L for females. ALT values should alway s be interpreted in conjunction with clinical history, physical examination findings, and, if applicable, data from other diagnostic tests. ALP 87 35-104 U/L GGT 134(H) 5-36 U/L Albumin 3.9 3.4-4.8 g/dL Total Protein 7.8 6.0-8.0 g/dL Specimen Blood CBC WITH DIFFERENTIAL (03/14/2017 6:20 PM)Only the most recent of2 resultswithin the time period is included. Specimen Whole Blood Narrative The following orders were created for panel order CBC WITH DIFFERENTIAL. Procedure Abnormality Status --------- ------ CBC (COMPLETE BLOOD COUNT)[[id number]] AbnormalFinal result DIFFERENTIAL[[id number]] Final result Please view results for these tests on the individual orders. BASIC METABOLIC PANEL W/ CALCIUM (CHEM 8) (03/14/2017 6:20 PM)Only the most recent of2 resultswithin the time period is included. Component Value Range Sodium 138 135-145 mEq/L Potassium 3.8 3.5-5.0 mEq/L Chloride 101 95-107 mEq/L CO2 24 22-29 mEq/L BUN 9(L) 10-20 mg/dL Creatinine 0.8Comment: 0.5-1.0 mg/dL Creatinine switched to enzymatic method on 03/26/2011.GFR equation switched to IDMS-traceable MDRD equation on 03/26/2011. Calculated GFR values are not valid in clinical settings where serum creatinine is changing. Glucose 132(H)Comment: 65-99 mg/dL The Expert Committee on the Diagnosis and Classification of Diabetes has defined impaired fasting glucose as greater than or equal to 100 mg/dL but less than 126 mg/dL.(Diabetes Care 28 (Suppl 1)S41,2005) Calcium 9.0 8.5-10.5 mg/dL Anion Gap 13 <17 mEq/L Calculated GFR 80 >60 mL/min/1.[address] ABDOMEN& PELVIS WO CONTRAST ([id number]) (03/14/2017 6:13 PM) Impressions Impression: No renal or ureteral stones. This final report is in agreement with the critical and emergent preliminary findings reported by the radiology assistant personnel training officer. Narrative Procedure: CT ABDOMEN & PELVIS WO CONTRAST ([id number]) Clinical Indication: Right flank pain. Rule out stones. Technique: CT exam of the abdomen and pelvis is performed without IV contrast. Comparison: 11/05/2016, 02/21/2016, 01/23/2016 Findings: The absence of IV contrast limits assessment of the solid organs, bowel, and vascular structures. Lower chest: The visualized lung bases are clear. Liver: Normal Bile ducts: Not dilated. Gallbladder: Surgically absent Pancreas: Normal Spleen: Normal Adrenal glands: Normal Kidneys: Normal. No renal stones are identified. Ureters: Normal. No ureteral stones are identified. Bladder: Collapsed. Aorta: Normal Retroperitoneum: No lymphadenopathy. Peritoneum: No ascites. Mesentery: Normal Stomach: Not distended. Small bowel: Not distended. Colon: Not distended. Appendix: Surgically absent. Extraperitoneal pelvis: No lymphadenopathy. Uterus: Surgically absent Ovaries: Interval decrease in size of the left ovarian follicle. No adnexal masses. Abdominal wall: Post surgical changes of prior lower abdominal midline laparotomy. Stable appearance of right sacral stimulator with generator in the right posterior buttock subcutaneous tissues. Bones: No acute fracture or destructive bone lesion. Procedure Note Azeem, Incoming Imaging Results - Sat Mar 15, 2017 11:31 AM CDT Procedure: CT ABDOMEN & PELVIS WO CONTRAST ([id number]) Clinical Indication: Right flank pain. Rule out stones. Technique: CT exam of the abdomen and pelvis is performed without IV contrast. Comparison: 11/05/2016, 02/21/2016, 01/23/2016 Findings: The absence of IV contrast limits assessment of the solid organs, bowel, and vascular structures. Lower chest: The visualized lung bases are clear. Liver: Normal Bile ducts: Not dilated. Gallbladder: Surgically absent Pancreas: Normal Spleen: Normal Adrenal glands: Normal Kidneys: Normal. No renal stones are identified. Ureters: Normal. No ureteral stones are identified. Bladder: Collapsed. Aorta: Normal Retroperitoneum: No lymphadenopathy. Peritoneum: No ascites. Mesentery: Normal Stomach: Not distended. Small bowel: Not distended. Colon: Not distended. Appendix: Surgically absent. Extraperitoneal pelvis: No lymphadenopathy. Uterus: Surgically absent Ovaries: Interval decrease in size of the left ovarian follicle. No adnexal masses. Abdominal wall: Post surgical changes of prior lower abdominal midline laparotomy. Stable appearance of right sacral stimulator with generator in the right posterior buttock subcutaneous tissues. Bones: No acute fracture or destructive bone lesion. IMPRESSION Impression: No renal or ureteral stones. This final report is in agreement with the critical and emergent preliminary findings reported by the radiology assistant personnel training officer. URINE MICROSCOPIC (03/14/2017 6:02 PM) Component Value Range White Blood Cells, Urine 1 0-5 /HPF Red Blood Cells, Urine <1 0-2 /HPF Squamous Epithelial Cells, Urine 30(H) <=10 /LPF Mucous-Urine Rare None, Rare Specimen Urine URINALYSIS (03/14/2017 6:02 PM) Component Value Range Color, Urine Yellow Straw, Pale Yellow, Yellow, Clear, None Clarity, Urine Clear Clear pH, Urine 5.0 <9.0 Glucose, Urine Negative Negative Blood, Urine 3+(A) Negative Ketones, Urine Negative Negative Protein, Urine Negative Negative Urobilinogen, Urine Normal Normal Bilirubin, Urine Negative Negative Leukocyte Esterase, Urine Negative Negative Nitrite, Urine Negative Negative Spec [place], Urine 1.010 1.000-1.030 Specimen Urine SCREEN, QUALITATIVE, URINE (03/14/2017 6:02 PM) Component Value Range Screen, Qualitative, Urine NegativeComment: Negative Cutoff is 20 mIU/mL HCG in urine. If results are unexpectedly positive, consider testing using quantitative serum HCG assay.False negative result may occur when the levels of HCG are slightly belo w the cutoff.When is still suspected, a repeat urine HCG 48 hours later or a quantitative serum HCG should be considered. Results should always be assessed in conjunction with the patien t's medical history, clinical examination and other findings. Specimen Urine MICROSCOPIC URINALYSIS (03/10/2017 4:28 PM) Component Value Range White Blood Cells, Urine 1 0-5 /HPF Red Blood Cells, Urine 2 0-2 /HPF Bacteria, Urine Few(A) /HPF Squamous Epithelial Cells, Urine 224(H) <=10 /LPF Mucous-Urine Moderate(A) None, Rare Specimen Urine URINALYSIS WITH REFLEX CULTURE (03/10/2017 4:28 PM) Component Value Range Color, Urine Yellow Straw, Pale Yellow, Yellow, Clear, None Clarity, Urine Slightly Cloudy(A) Clear pH, Urine 5.0 <9.0 Spec [place], Urine 1.025 1.000-1.030 Glucose, Urine Negative Negative Blood, Urine 3+(A) Negative Ketones, Urine Negative Negative Protein, Urine Negative Negative Urobilinogen, Urine Normal Normal Bilirubin, Urine Negative Negative Leukocyte Esterase, Urine Negative Negative Nitrite, Urine Negative Negative Specimen Urine URINALYSIS WITH REFLEXED CULTURE AND MICROSCOPIC EXAM (03/10/2017 4:28 PM) Specimen Culture - Urine, Midstream clean catch Narrative The following orders were created for panel order URINALYSIS WITH REFLEXED CULTURE AND MICROSCOPIC EXAM. Procedure Abnormality Status --------- ------ URINALYSIS WITH REFLEX C...[[id number]]AbnormalFinal result MICROSCOPIC URINALYSIS[[id number]] Abnormal Final result URINE CULTURE, REFLEXED[[id number]] Please view results for these tests on the individual orders. PT/INR (PROTHROMBIN TIME/INR) VENOUS (03/10/2017 3:52 PM) Component Value Range PT (Prothrombin Time) 10 9-12 secs INR 1.0 <4.0 Specimen Blood RIGHT KNEE AP, LATERAL& MERCHANT (02/20/2017 1:28 PM) Impressions Findings / Impression: No acute fracture or dislocation. Neutral patellar tracking. Minimal osteophytes. Moderate capsular distention. Consider correlation with CBC or CRP to evaluate for infection as clinically warranted. Results of the procedure were given to: PERSON CONTACTED:CosmosID DATE: 02/20/17 TIME CALLED:[id number] PHONE/PAGER:[email or web address] Narrative Procedure: RIGHT KNEE AP, LATERAL & MERCHANT Clinical Indication: Right anterior knee pain. Nontraumatic. Prior history of lateral ligamentous release. Comparison: 09/25/2016 Procedure Note Azeem, Incoming Imaging Results - Deysi Feb 20, 2017 3:20 PM CDT Procedure: RIGHT KNEE AP, LATERAL & MERCHANT Clinical Indication: Right anterior knee pain. Nontraumatic. Prior history of lateral ligamentous release. Comparison: 09/25/2016 IMPRESSION Findings / Impression: No acute fracture or dislocation. Neutral patellar tracking. Minimal osteophytes. Moderate capsular distention. Consider correlation with CBC or CRP to evaluate for infection as clinically warranted. Results of the procedure were given to: PERSON CONTACTED: CosmosID DATE: 02/20/17 TIME CALLED: [id number] PHONE/PAGER: [email or web address] LEFT SHOULDER AP, AX,& Y SCAPULAR VIEW (01/15/2017 7:28 PM) Impressions Findings / Impression: No definite acute displaced fractures or dislocations. Narrative Procedure: LEFT SHOULDER AP, AX, & Y SCAPULAR VIEW Clinical Indication: Left shoulder pain Comparison: 01/04/2017 Procedure Note Azeem, Incoming Imaging Results - FriJan 15, 2017 9:54 PM GRAZING AIDE Procedure: LEFT SHOULDER AP, AX, & Y SCAPULAR VIEW Clinical Indication: Left shoulder pain Comparison: 01/04/2017 IMPRESSION Findings / Impression: No definite acute displaced fractures or dislocations.
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
[2017-04-12 11:01] LABS: Urine Bilirubin Negative (NEGATIVE); Urine Blood Negative /ul (NEGATIVE); Urine Ketone Negative (NEGATIVE); Urine Nitrite Negative (NEGATIVE); Urine Protein Negative (NEGATIVE); Urine Specific Gravity 1.015 SP.GR. (1.005-1.010); Urine Urobilinogen Normal (NORMAL)
[2017-04-12 11:02] LABS: Albumin * 3.6 gm/dl (3.4-5.0); Anion Gap 13.4 mmol/L (6.8-13.8); BUN/Creatinine Ratio 9.5 (9.0-21.6); Bilirubin, Total 0.3 mg/dL (0.0-1.1); Carbon Dioxide 27.9 mmol/L (24-32.6); Potassium 4.3 mmol/L (3.4-4.6); Total Protein 8.5 gm/dL (6.2-8.2)
[2017-04-12 11:10] LABS: Urine Appearance Clear; Urine Color Pale Yellow
[2017-04-12] MEDS ORDERED: NALBUPHINE HCL 20 MG/ML AMPUL IM ONE ×2 (11:10→12:36)
[2017-04-12 11:11] LABS: Urine Bacteria TRACE; Urine RBC None Seen /hpf (0-5); Urine WBC None Seen /hpf (0-5)
[2017-04-12] MEDS ORDERED: NALBUPHINE HCL 20 MG/ML AMPUL ONE ×2 (11:14→12:42)
[2017-04-12 11:31] LABS: Cocaine Ur Negative (NEGATIVE); Urine Barbiturate Negative (NEGATIVE); Urine Benzodiazepines Negative (NEGATIVE); Urine Opiates Negative (NEGATIVE); Urine PCP Negative (NEGATIVE); Urine THC Negative (NEGATIVE)
== END 2017-04-12 13:31 | disposition home or self-care (01) ==
LOC: ER 10:17
DX: N83.209 Unspecified ovarian cyst, unspecified side (principal); F41.8 Other specified anxiety disorders; M19.90 Unspecified osteoarthritis, unspecified site; Z85.51 Personal history of malignant neoplasm of bladder

== ENCOUNTER 2017-11-19 14:53 | Emergency (ER) | payer MEDICARE, MEDICAID ==
[2017-11-19] MEDS ORDERED: ONDANSETRON 4 MG TAB.RAPDIS PO ONE (15:02)
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
[2017-11-19 15:16] LABS: Hematocrit 41.6 % (37.0-47.0); Mean Cell Volume 86.8 fl (78-100); Mean Corpuscular Hemoglobin 29.2 pg (27-31); Mean Corpuscular Hgb Conc 33.7 g/dl (32-36); Mean Platelet Volume 8.7 fl (6.0-9.5); Neutrophil # 4.8 K/mm3 (1.3-6.0); Platelet Count 370 K/mm3 (150-450); Red Blood Count 4.79 M/mm3 (4.2-5.4); Red Cell Distribution Width 13.7 % (11.5-14.0); White Blood Count 8.9 K/mm3 (4.0-10.5)
[2017-11-19 15:22] LABS: Urine Bilirubin 1 mg/dl (NEGATIVE); Urine Blood Negative /ul (NEGATIVE); Urine Ketone Negative (NEGATIVE); Urine Nitrite Negative (NEGATIVE); Urine Protein Negative (NEGATIVE); Urine Specific Gravity >=1.030 SP.GR. (1.005-1.010); Urine Urobilinogen Normal (NORMAL)
[2017-11-19 15:25] LABS: Urine Appearance Clear; Urine Color Yellow
[2017-11-19 15:29] LABS: Urine Bacteria None Seen; Urine RBC None Seen /hpf (0-5); Urine WBC None Seen /hpf (0-5)
[2017-11-19] MEDS ORDERED: diphenhydrAMINE HCL 50 MG/ML VIAL ONE (15:33)
[2017-11-19] MEDS ORDERED: METOCLOPRAMIDE HCL 5 MG/ML VIAL ONE (15:33)
[2017-11-19] MEDS ORDERED: DICYCLOMINE HCL 10 MG/ML AMPUL IM ONE (15:33)
[2017-11-19 15:36] LABS: Albumin * 4.1 gm/dl (3.4-5.0); Anion Gap 13.3 mmol/L (6.8-13.8); BUN/Creatinine Ratio 17.5 (9.0-21.6); Calcium * 9.7 mg/dL (7.9-10.9); Carbon Dioxide 26.3 mmol/L (24-32.6); Potassium 3.6 mmol/L (3.4-4.6); Total Protein 9.1 gm/dL (6.2-8.2)
[2017-11-19 15:37] LABS: Bilirubin, Total 0.5 mg/dL (0.0-1.1); Ca. Corrected For Albumin 9.3 mg/dL (8.4-10.2)
[2017-11-19] MEDS: DICYCLOMINE HCL 10 MG/ML AMPUL IM ONE (15:42)
[2017-11-19] MEDS: diphenhydrAMINE HCL 50 MG/ML VIAL IM ONE (15:43)
[2017-11-19] MEDS: METOCLOPRAMIDE HCL 5 MG/ML VIAL IM ONE (15:43)
[2017-11-19] MEDS ORDERED: HYDROmorphone HCL 2 MG/ML VIAL ONE (15:51)
[2017-11-19] MEDS ORDERED: NORMAL SALINE 1,000 ML IV ONE (16:06)
[2017-11-19] MEDS ORDERED: MAGNESIUM CITRATE 300 ML BTL ONE (18:37)
[2017-11-19] MEDS: MAGNESIUM CITRATE 300 ML BTL PO ONE (18:37)
[2017-11-19 18:53] VITALS: BP 138/71
== END 2017-11-19 18:38 | disposition home or self-care (01) ==
LOC: ER 14:53
DX: K59.01 Slow transit constipation; M19.90 Unspecified osteoarthritis, unspecified site; Z85.51 Personal history of malignant neoplasm of bladder; Z87.442 Personal history of urinary calculi; N23 Unspecified renal colic; I87.8 Other specified disorders of veins; I10 Essential (primary) hypertension